=== PATIENT | male | born 1995 | race Caucasian/White ===

== ENCOUNTER 2017-07-16 00:58 | Inpatient (IN) | payer OTHER, BC ==
[~2017-07-16] VITALS: Ht 182.9 cm; Wt 78.4 kg
[2017-07-16] VITALS (18 sets, daily range): BP systolic 69–189; BP diastolic 39–79; PULSE 95–133; RESP 13–16; TEMP 97.5–99.7; O2SAT 78–100
[2017-07-16 01:21] LABS: AUTOMATED NEUTROPHIL # 17.4 TH/MM3 (1.8-7.7); BASOPHIL # 0.1 TH/MM3 (0-0.2); BASOPHIL % 0.4 % (0.0-2.0); EOSINOPHIL # 0.1 TH/MM3 (0-0.4); EOSINOPHIL % 0.6 % (0.0-4.0); HEMATOCRIT 37.8 % (39.0-51.0); HEMOGLOBIN 12.1 GM/DL (13.0-17.0); LYMPH % 21.2 % (9.0-44.0); LYMPHOCYTE # 4.9 TH/MM3 (1.0-4.8); MEAN CELL VOLUME 98.3 FL (80.0-100.0); MEAN CORPUSCULAR HEMOGLOBIN 31.4 PG (27.0-34.0); MEAN CORPUSCULAR HGB CONC 31.9 % (32.0-36.0); MEAN PLATELET VOLUME 9.9 FL (7.0-11.0); MONO % 2.5 % (0.0-8.0); MONOCYTE # 0.6 TH/MM3 (0-0.9); NEUT % 75.3 % (16.0-70.0); PLATELET COUNT 343 TH/MM3 (150-450); RED BLOOD COUNT 3.85 MIL/MM3 (4.50-5.90); RED CELL DISTRIBUTION WIDTH 14.5 % (11.6-17.2); WHITE BLOOD COUNT 23.1 TH/MM3 (4.0-11.0)
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
[2017-07-16 01:33] LABS: INTERNATIONAL NORMALIZED RATIO 1.2 RATIO; PROTHROMBIN TIME - PATIENT 12.4 SEC (9.8-11.6)
[2017-07-16] MEDS ORDERED: IODIXANOL 320 MG/ML 10 ML VIAL (for Rad CT) IVCONTRAST ONE (01:33)
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
[2017-07-16] MEDS ORDERED: VASOPRESSIN 20 UNITS/ML VIAL ONE ×2 (01:54→13:08)
[2017-07-16 02:33] LABS: AUTOMATED NEUTROPHIL # 7.5 TH/MM3 (1.8-7.7); BASOPHIL # 0.1 TH/MM3 (0-0.2); BASOPHIL % 0.7 % (0.0-2.0); EOSINOPHIL # 0.1 TH/MM3 (0-0.4); EOSINOPHIL % 0.9 % (0.0-4.0); HEMATOCRIT 29.1 % (39.0-51.0); HEMOGLOBIN 9.6 GM/DL (13.0-17.0); LYMPH % 17.8 % (9.0-44.0); LYMPHOCYTE # 1.7 TH/MM3 (1.0-4.8); MEAN CELL VOLUME 88.6 FL (80.0-100.0); MEAN CORPUSCULAR HEMOGLOBIN 29.3 PG (27.0-34.0); MEAN CORPUSCULAR HGB CONC 33.1 % (32.0-36.0); MEAN PLATELET VOLUME 8.8 FL (7.0-11.0); MONO % 0.8 % (0.0-8.0); MONOCYTE # 0.1 TH/MM3 (0-0.9); NEUT % 79.8 % (16.0-70.0); PLATELET COUNT 135 TH/MM3 (150-450); RED BLOOD COUNT 3.28 MIL/MM3 (4.50-5.90); WHITE BLOOD COUNT 9.4 TH/MM3 (4.0-11.0)
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
[2017-07-16 02:48] LABS: INTERNATIONAL NORMALIZED RATIO 1.6 RATIO; PROTHROMBIN TIME - PATIENT 15.7 SEC (9.8-11.6)
[2017-07-16 02:52] LABS: BICARBONATE 18.7 MEQ/L (21.0-32.0); CALCIUM 7.5 MG/DL (8.5-10.1); CREATININE 1.42 MG/DL (0.60-1.30)
[2017-07-16 03:20] LABS: HEMATOCRIT 29.4 % (39.0-51.0); MEAN CELL VOLUME 89.7 FL (80.0-100.0); MEAN CORPUSCULAR HEMOGLOBIN 30.5 PG (27.0-34.0); MEAN PLATELET VOLUME 8.3 FL (7.0-11.0); PLATELET COUNT 105 TH/MM3 (150-450); RED BLOOD COUNT 3.28 MIL/MM3 (4.50-5.90); RED CELL DISTRIBUTION WIDTH 15.8 % (11.6-17.2); WHITE BLOOD COUNT 10.1 TH/MM3 (4.0-11.0)
[2017-07-16] MEDS ORDERED: ENALAPRILAT 1.25 MG/ML VIAL IV PUSH PRN (03:30)
[2017-07-16] MEDS ORDERED: CHLORHEXIDINE GLUCONATE 2 % 1 PACK (2 CLOTHS) TOP PRN (03:30)
[2017-07-16] MEDS ORDERED: ONDANSETRON HCL 4 MG/2 ML VIAL IV PUSH PRN (03:30)
[2017-07-16] MEDS ORDERED: NURSING INFORMATION XX SCH (03:30)
[2017-07-16 03:34] LABS: INTERNATIONAL NORMALIZED RATIO 1.5 RATIO; PROTHROMBIN TIME - PATIENT 14.7 SEC (9.8-11.6)
[2017-07-16 03:46] LABS: BICARBONATE 20.8 MEQ/L (21.0-32.0); CALCIUM 8.6 MG/DL (8.5-10.1); CREATININE 1.25 MG/DL (0.60-1.30); MAGNESIUM 1.8 MG/DL (1.5-2.5); PHOSPHORUS 7.4 MG/DL (2.5-4.9)
[2017-07-16] MEDS ORDERED: PROPOFOL 500 MG/50 ML INJ 50 ML ONE (03:52)
[2017-07-16] MEDS: CHLORHEXIDINE GLUCONATE 2 % 1 PACK (2 CLOTHS) TOP SCH (04:00)
[2017-07-16] MEDS ORDERED: MIDAZOLAM HCL 2 MG/2 ML VIAL ONE (04:03)
[2017-07-16] MEDS: SODIUM CHLOR 0.9% 1000 ML INJ 1,000 ML IV SCH ×2 (04:06→10:03)
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
[2017-07-16] MEDS ORDERED: LIDOCAINE HCL 2% 100 MG/5 ML SYRINGE IV PUSH ONE (04:39)
[2017-07-16] MEDS ORDERED: SUCCINYLCHOLINE CHLORIDE 100 MG/5 ML SYRINGE IV PUSH ONE (04:41)
[2017-07-16] MEDS: PROPOFOL 1000 MG/100 ML IV PRN ×2 (04:41→07:45)
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
--- NOTE | 2017-07-16 05:01 | MP ---
cc: Foreign Snider MD DATE OF OPERATION: 07/16/2017 PREOPERATIVE DIAGNOSIS: Splenic injury, liver injury. POSTOPERATIVE DIAGNOSIS: Splenic injury, liver injury. PROCEDURE PERFORMED: Exploratory laparotomy, splenectomy and control of liver bleed. SURGEON: Foreign Snider MD ANESTHESIA: General endotracheal anesthesia. ESTIMATED BLOOD LOSS: 2 liters. Multiple blood and blood products were given and could be obtained from the anesthesia record. FINDINGS: Splenic laceration with active bleed, liver laceration with active bleed. SPECIMENS: Spleen. COMPLICATIONS: None. OPERATIVE SUMMARY: The patient was brought to the operating room, placed on the operative table in supine position. Bilateral sequential inflation device connected, general anesthesia instituted. Lines were placed by Anesthesia. The abdomen was prepped and draped sterilely. A midline incision was made. The abdominal cavity was entered. Upon entering the abdominal cavity, there was a large amount of hemoperitoneum encountered. The upper abdomen was packed off. The packing in the left upper quadrant was removed. The spleen was brought up into the wound. The short gastric vessels were taken down using the Harmonic scalpel. The splenic attachments were down taken superiorly and posteriorly using a Bovie. The inferior splenic vessels were taken using the Harmonic scalpel. The splenic artery and vein were isolated between right-angle clamps. They were divided and ligated with 0 silk sutures. The spleen was removed from the abdominal cavity. Attention then focused on the liver. The liver was split at the falciform, with active bleeding. This was controlled with 0 chromic suture. The small bowel was then inspected from the ligament of Treitz to the ileocecal valve. No evidence of bowel injury. The colon was inspected. No evidence of colonic injury. The stomach was inspected. The short gastrics and splenic vessel stumps were inspected. No evidence of bleeding. The abdominal cavity was then irrigated with saline. As the patient received a large amount of blood transfusions and blood product transfusion, it was decided to leave the patient's abdomen open. A VAC dressing was then placed. The large blue sponge was placed into the abdominal cavity, and then the occlusive dressing was then placed. The abdominal wall was cleaned prior to this. The patient was left intubated and taken to [facility]. MD RADHIKA Mac/TAN , 04:05 AM , 05:00 AM
[2017-07-16 05:08] LABS: HEMATOCRIT 31.6 % (39.0-51.0); HEMOGLOBIN 10.9 GM/DL (13.0-17.0); MEAN CELL VOLUME 88.2 FL (80.0-100.0); MEAN CORPUSCULAR HEMOGLOBIN 30.5 PG (27.0-34.0); MEAN CORPUSCULAR HGB CONC 34.5 % (32.0-36.0); MEAN PLATELET VOLUME 8.6 FL (7.0-11.0); PLATELET COUNT 105 TH/MM3 (150-450); RED BLOOD COUNT 3.58 MIL/MM3 (4.50-5.90); RED CELL DISTRIBUTION WIDTH 15.8 % (11.6-17.2); WHITE BLOOD COUNT 8.3 TH/MM3 (4.0-11.0)
[2017-07-16 05:30] LABS: INTERNATIONAL NORMALIZED RATIO 1.2 RATIO
[2017-07-16 05:45] LABS: ALKALINE PHOSPHATASE 51 U/L (45-117); TOTAL BILIRUBIN ADULT 0.5 MG/DL (0.2-1.0); TOTAL PROTEIN 5.2 GM/DL (6.4-8.2)
[2017-07-16] MEDS ORDERED: MAGNESIUM OXIDE 400 MG TAB PO PRN (05:45)
[2017-07-16] MEDS ORDERED: POTASSIUM PHOSPHATE INJ 30 MMOL in SODIUM CHLOR 0.9% 250 ML INJ 250 ML IV PRN (05:45)
[2017-07-16] MEDS ORDERED: POTASSIUM PHOSPHATE MONOBASIC 500 MG TAB PO/TUBE PRN (05:45)
[2017-07-16] MEDS ORDERED: MAGNESIUM SULFATE INJ 4 GM in SODIUM CHLORIDE 0.9% INJ 92 ML IV PRN (05:45)
[2017-07-16] MEDS ORDERED: POTASSIUM PHOSPHATE MONOBASIC 500 MG TAB PO PRN (05:45)
[2017-07-16] MEDS ORDERED: POTASSIUM CHLORIDE 25 MEQ EFFERVESCENT TAB PO PRN (05:45)
[2017-07-16] MEDS ORDERED: POTASSIUM CHLOR 20 MEQ PREMIX 100 ML IV PRN ×2 (05:45)
[2017-07-16] MEDS ORDERED: POTASSIUM CHLOR 40 MEQ PREMIX 100 ML IV PRN ×2 (05:45)
[2017-07-16] MEDS ORDERED: MAGNESIUM SULFATE INJ 2 GM in SODIUM CHLORIDE 0.9% INJ 96 ML IV PRN (05:45)
[2017-07-16] MEDS ORDERED: SODIUM PHOSPHATE INJ 30 MMOL in SODIUM CHLOR 0.9% 250 ML INJ 240 ML IV PRN (05:45)
[2017-07-16 05:46] LABS: ALBUMIN 2.5 GM/DL (3.4-5.0); ALT (GPT) 944 U/L (12-78); AST (GOT) 778 U/L (15-37); BICARBONATE 23.9 MEQ/L (21.0-32.0); BLOOD UREA NITROGEN 17 MG/DL (7-18); CALCIUM 8.8 MG/DL (8.5-10.1); CHLORIDE 109 MEQ/L (98-107); GLOMERULAR FILTRATION RATE 48 ML/MIN (>89); GLUCOSE,RANDOM 72 MG/DL (74-106); SODIUM (NA) 148 MEQ/L (136-145)
[2017-07-16] MEDS: fentaNYL 2,500 MCG/NS 250 ML IV PRN ×2 (05:46→19:00)
[2017-07-16] MEDS: CISATRACURIUM 100 MG/NS 250 ML IV PRN ×2 (05:46)
[2017-07-16] MEDS: SODIUM CHLORIDE 0.9% FLUSH 10 ML FLUSH IV FLUSH PRN (05:46)
[2017-07-16] MEDS: PANTOPRAZOLE SODIUM 40 MG VIAL IVP SCH (05:47)
[2017-07-16] MEDS ORDERED: LACTATED RINGER'S 1000 ML INJ 1,000 ML IV PRN (06:00)
[2017-07-16] MEDS ORDERED: NOREPINEPHRINE-DEXTROSE DRIP 250 ML IV ONE ×2 (06:16→12:54)
[2017-07-16] MEDS: NOREPINEPHRINE 4 MG/D5W 250 ML IV PRN ×2 (06:41→22:25)
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
[2017-07-16] MEDS ORDERED: ALBUMIN 5% INJ 500 ML IV ONE ×3 (07:00→13:30)
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
[2017-07-16] MEDS: CHLORHEXIDINE 0.12% (ORAL KIT) 15 ML CUP MT SCH (07:46)
[2017-07-16 08:43] LABS: MAGNESIUM 1.9 MG/DL (1.5-2.5); PHOSPHORUS 5.8 MG/DL (2.5-4.9)
[2017-07-16] MEDS ORDERED: SODIUM BICARBONATE 8.4% INJ 50 MEQ/50 ML SYR ONE (08:54)
[2017-07-16] MEDS: EPOPROSTENOL NEB SOLUTION 50 NG/KG/MIN 100 ML NEB SCH ×4 (09:51→19:00)
[2017-07-16] MEDS: RESP: ALBUTEROL 2.5 MG/IPRATROPIUM 0.5 MG NEB (SCH) NEB ×4 (10:00→22:36)
--- NOTE | 2017-07-16 10:21 | RADRPT ---
EXAM DATE/TIME: 07/16/2017 09:41 [facility] COMPARISON: CHEST SINGLE AP, July 16, 2017, 4:05. INDICATIONS : Shortness of breath. MEDICAL HISTORY : Unobtainable. SURGICAL HISTORY : Unobtainable. ENCOUNTER: Subsequent ACUITY: 1 day PAIN SCORE: Non-responsive. LOCATION: Bilateral chest FINDINGS: Endotracheal tube tip is present 8 cm above the elan. Nasogastric tube descends in the stomach. Lef t subclavian sheath is present. There is persistent diffuse alveolar consolidation in the left lung a nd increasing consolidative density in the right perihilar region right lung base. Cardiac silhouette is largely obscured. CONCLUSION: Worsening aeration Marvin Bean MD on July 16, 2017 at 10:18 Board Certified Radiologist. This report was verified electronically.
[2017-07-16 10:23] LABS: AUTOMATED NEUTROPHIL # 1.7 TH/MM3 (1.8-7.7); BASOPHIL % 0.6 % (0.0-2.0); EOSINOPHIL % 0.7 % (0.0-4.0); HEMATOCRIT 32.6 % (39.0-51.0); HEMOGLOBIN 11.1 GM/DL (13.0-17.0); LYMPH % 33.4 % (9.0-44.0); LYMPHOCYTE # 0.9 TH/MM3 (1.0-4.8); MEAN CELL VOLUME 88.9 FL (80.0-100.0); MEAN CORPUSCULAR HEMOGLOBIN 30.2 PG (27.0-34.0); MEAN PLATELET VOLUME 7.5 FL (7.0-11.0); MONO % 2.3 % (0.0-8.0); MONOCYTE # 0.1 TH/MM3 (0-0.9); PLATELET COUNT 179 TH/MM3 (150-450); RED BLOOD COUNT 3.66 MIL/MM3 (4.50-5.90); RED CELL DISTRIBUTION WIDTH 15.8 % (11.6-17.2); WHITE BLOOD COUNT 2.7 TH/MM3 (4.0-11.0)
[2017-07-16 11:01] LABS: BICARBONATE 30.8 MEQ/L (21.0-32.0); CALCIUM 7.9 MG/DL (8.5-10.1); CREATININE 1.45 MG/DL (0.60-1.30)
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
[2017-07-16] MEDS ORDERED: PHENYLEPHRINE HCL 10 MG/ML VIAL ONE ×3 (11:55→14:18)
[2017-07-16] MEDS ORDERED: LACTATED RINGER'S 1000 ML INJ 3,000 ML IV ONE (12:00)
[2017-07-16] MEDS ORDERED: PHENYLEPHRINE HCL 10 MG/ML VIAL IV ONE (12:00)
[2017-07-16] MEDS ORDERED: ROCURONIUM INJ 50 MG/5 ML SYRINGE IV PUSH ONE (12:00)
[2017-07-16] MEDS ORDERED: CALCIUM GLUCONATE INJ 2 GM in SODIUM CHLORIDE 0.9% INJ 100 ML IV ONE ×2 (12:00→16:15)
[2017-07-16] MEDS ORDERED: SODIUM CHLORID 0.9% 500 ML INJ 500 ML IV ONE (12:00)
[2017-07-16] MEDS ORDERED: NORMOSOL R INJ 4,000 ML IV ONE (12:00)
[2017-07-16] MEDS ORDERED: KETOROLAC TROMETHAMINE 30 MG/ML (IVP) VIAL IV PUSH ONE (12:00)
[2017-07-16] MEDS ORDERED: PHENYLEPH/NS 1000 MCG/10 ML SYR IV ONE (12:00)
[2017-07-16] MEDS ORDERED: SODIUM CHLOR 0.9% 250 ML INJ 250 ML IV ONE (12:00)
[2017-07-16] MEDS ORDERED: VECURONIUM BROMIDE 20 MG VIAL IV ONE (12:00)
[2017-07-16] MEDS ORDERED: ePHEDrine/NS 25 MG/5 ML SYRINGE IV ONE (12:00)
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
[2017-07-16] MEDS ORDERED: PHENYLEPHRINE 40 MG in D5W 500 ML IV PRN (15:00)
[2017-07-16 15:06] LABS: AUTOMATED NEUTROPHIL # 2.6 TH/MM3 (1.8-7.7); BASOPHIL % 0.3 % (0.0-2.0); EOSINOPHIL % 1.3 % (0.0-4.0); HEMATOCRIT 27.6 % (39.0-51.0); HEMOGLOBIN 9.7 GM/DL (13.0-17.0); LYMPH % 18.9 % (9.0-44.0); LYMPHOCYTE # 0.6 TH/MM3 (1.0-4.8); MEAN CELL VOLUME 87.7 FL (80.0-100.0); MEAN CORPUSCULAR HEMOGLOBIN 30.7 PG (27.0-34.0); MONO % 1.7 % (0.0-8.0); MONOCYTE # 0.1 TH/MM3 (0-0.9); NEUT % 77.8 % (16.0-70.0); PLATELET COUNT 141 TH/MM3 (150-450); RED BLOOD COUNT 3.15 MIL/MM3 (4.50-5.90); RED CELL DISTRIBUTION WIDTH 16.1 % (11.6-17.2); WHITE BLOOD COUNT 3.4 TH/MM3 (4.0-11.0)
[2017-07-16 15:28] LABS: ALKALINE PHOSPHATASE 42 U/L (45-117); ALT (GPT) 862 U/L (12-78); AST (GOT) 949 U/L (15-37); BICARBONATE 27.9 MEQ/L (21.0-32.0); BLOOD UREA NITROGEN 21 MG/DL (7-18); CALCIUM 7.5 MG/DL (8.5-10.1); CHLORIDE 107 MEQ/L (98-107); CREATININE 2.23 MG/DL (0.60-1.30); GLOMERULAR FILTRATION RATE 37 ML/MIN (>89); GLUCOSE,RANDOM 146 MG/DL (74-106); SODIUM (NA) 143 MEQ/L (136-145); TOTAL BILIRUBIN ADULT 0.7 MG/DL (0.2-1.0); TOTAL PROTEIN 5.3 GM/DL (6.4-8.2)
[2017-07-16] MEDS: LACTATED RINGER'S 1000 ML INJ 1,000 ML IV SCH (15:30)
[2017-07-16 15:50] LABS: BANDS 17 % (0-6); BASOPHILS 2 % (0-2); LYMPHOCYTES 31 % (9-44); METAMYELOCYTES 6 % (0-1); MONOCYTES 2 % (0-8); MYELOCYTES 5 % (0-0); NEUTROPHIL # MANUAL DIFF 2.1 TH/MM3 (1.8-7.7); POLYS (SEG NEUTROPHILS) 35 % (16-70)
[2017-07-16] MEDS ORDERED: MIDAZOLAM HCL 5 MG/ML VIAL (1 ML) ONE (19:15)
[2017-07-16] MEDS: MIDAZOLAM 100 MG/NS 100 ML DRIP Premix IV PRN (20:05)
[2017-07-16] MEDS ORDERED: TERBUTALINE INJ 1 MG/ML AMP SQ PRN (20:45)
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
--- NOTE | 2017-07-16 21:53 | RADRPT ---
EXAM DATE/TIME: 07/16/2017 20:36 [facility] COMPARISON: CHEST SINGLE AP, July 16, 2017, 9:41. INDICATIONS : Shortness of breath. MEDICAL HISTORY : Unresponsive. SURGICAL HISTORY : Unresponsive. ENCOUNTER: Initial ACUITY: 1 day PAIN SCORE: Non-responsive. LOCATION: Bilateral chest FINDINGS: ET tube tip is 8 cm from the elan. The NG tube tip is directed into the stomach. There is a left dooley bclavian line with its tip at the left brachiocephalic vein. There is increased density seen througho ut the left chest. There is diffuse consolidation seen on the right side. There is a mild right effus ion. CONCLUSION: 1. Suspected bilateral effusions being much worse on the left. 2. Diffuse pulmonary consolidations likely related to edema. Marvin Steele MD on July 16, 2017 at 21:47 Board Certified Radiologist. This report was verified electronically.
--- NOTE | 2017-07-16 22:11 | PD.PROCEDR ---
Procedure Note Procedure Procedure: Arterial Line Placement Right femoral arterial line Diagnosis: Severe ARDS Indications: Need for beat to beat hemodynamic monitoring. Patient has a right radial arterial line which is not correlating with the noninvasive blood pressure and the patient remains on 3 vasopressors. Need for accurate central arterial pressure monitoring Consent: Obtained from the family Description of the Procedure: The right groin was prepped and draped sterilely. Ultrasound guidance was used to identify the right femoral artery. The vascular anatomy of the right groin was normal. The artery was located and a needle was advanced into the artery under direct real-time visualization. A guidewire was advanced easily. Guidewire was confirmed in the lumen of the artery under ultrasound guidance. A 16 gauge, 20 cm catheter was advanced into the artery using a modified Seldinger technique. The catheter was sutured to the skin and a sterile dressing was applied. The catheter was connected to a pressure transducer and an arterial waveform was noted. There were no immediate complications noted. There was minimal EBL. I personally performed the procedure. Chadwick Pulido MD Jul 16, 2017 22:11
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
--- NOTE | 2017-07-16 22:55 | RADRPT ---
EXAM DATE/TIME: 07/16/2017 21:36 [facility] COMPARISON: CHEST SINGLE AP, July 16, 2017, 20:36. INDICATIONS : Evaluate chest tube placement. MEDICAL HISTORY : Unresponsive. SURGICAL HISTORY : Unresponsive. ENCOUNTER: Subsequent ACUITY: 1 day PAIN SCORE: Non-responsive. LOCATION: Bilateral chest FINDINGS: The ET tube and NG tube are well placed. There is a left subclavian line place with the tip overlying the left innominate vein. There is a new left chest tube. There is slight under aeration of the left upper lung. There is diffuse consolidation. There is increased density seen throughout the left ches t likely related to a combination of consolidation, atelectasis, and/or effusion. There is a mild rig ht pleural effusion. CONCLUSION: 1. New left chest tube. There is better aeration in the left upper lung. 2. Diffuse consolidation likely related to edema. Marvin Steele MD on July 16, 2017 at 22:51 Board Certified Radiologist. This report was verified electronically.
[2017-07-16] MEDS: PHENYLEPHRINE 40 MG in D5W 500 ML IV PRN (22:57)
[2017-07-16 23:21] LABS: BICARBONATE 25.9 MEQ/L (21.0-32.0); CALCIUM 6.8 MG/DL (8.5-10.1); CREATININE 3.05 MG/DL (0.60-1.30)
[2017-07-16 23:38] LABS: CALCIUM-PROTEIN CORRECTED 7.8 MG/DL (8.5-10.1); TOTAL PROTEIN 5.1 GM/DL (6.4-8.2)
[2017-07-17] VITALS (16 sets, daily range): BP systolic 100–128; BP diastolic 56–92; PULSE 123–132; RESP 16–28; TEMP 98.9–99.6; O2SAT 92–100
[2017-07-17] MEDS: PHENYLEPHRINE 40 MG in D5W 500 ML IV PRN ×3 (01:15→06:06)
[2017-07-17] MEDS: VASOPRESSIN 40 U/D5W 100 ML Titrate, Post Cardiac Surgery IV PRN ×4 (02:23→18:30)
[2017-07-17] MEDS: NOREPINEPHRINE 4 MG/D5W 250 ML IV PRN ×7 (02:24→20:11)
[2017-07-17] MEDS: LACTATED RINGER'S 1000 ML INJ 1,000 ML IV SCH ×2 (02:40→04:50)
[2017-07-17] MEDS: EPOPROSTENOL NEB SOLUTION 50 NG/KG/MIN 100 ML NEB SCH ×6 (03:00→22:54)
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
[2017-07-17] MEDS: RESP: ALBUTEROL 2.5 MG/IPRATROPIUM 0.5 MG NEB (SCH) NEB ×4 (04:00→22:00)
[2017-07-17] MEDS: CHLORHEXIDINE GLUCONATE 2 % 1 PACK (2 CLOTHS) TOP SCH (04:00)
[2017-07-17 04:45] LABS: AUTOMATED NEUTROPHIL # 14.5 TH/MM3 (1.8-7.7); BASOPHIL % 0.2 % (0.0-2.0); EOSINOPHIL # 0.1 TH/MM3 (0-0.4); EOSINOPHIL % 0.4 % (0.0-4.0); HEMATOCRIT 28.5 % (39.0-51.0); HEMOGLOBIN 9.6 GM/DL (13.0-17.0); LYMPHOCYTE # 1.1 TH/MM3 (1.0-4.8); MEAN CELL VOLUME 89.2 FL (80.0-100.0); MEAN CORPUSCULAR HEMOGLOBIN 30.2 PG (27.0-34.0); MEAN CORPUSCULAR HGB CONC 33.8 % (32.0-36.0); MEAN PLATELET VOLUME 9.3 FL (7.0-11.0); MONO % 2.6 % (0.0-8.0); MONOCYTE # 0.4 TH/MM3 (0-0.9); NEUT % 89.8 % (16.0-70.0); PLATELET COUNT 75 TH/MM3 (150-450); RED BLOOD COUNT 3.19 MIL/MM3 (4.50-5.90); RED CELL DISTRIBUTION WIDTH 16.5 % (11.6-17.2); WHITE BLOOD COUNT 16.1 TH/MM3 (4.0-11.0)
[2017-07-17 05:16] LABS: INTERNATIONAL NORMALIZED RATIO 1.5 RATIO
[2017-07-17 05:17] LABS: BICARBONATE 24.5 MEQ/L (21.0-32.0); CALCIUM 6.4 MG/DL (8.5-10.1); CREATININE 3.51 MG/DL (0.60-1.30); MAGNESIUM 1.2 MG/DL (1.5-2.5); PHOSPHORUS 5.4 MG/DL (2.5-4.9)
[2017-07-17 05:35] LABS: TOTAL PROTEIN 5.2 GM/DL (6.4-8.2)
[2017-07-17 05:39] LABS: CALCIUM-PROTEIN CORRECTED 7.3 MG/DL (8.5-10.1)
[2017-07-17] MEDS: PANTOPRAZOLE SODIUM 40 MG VIAL IVP SCH (06:06)
[2017-07-17] MEDS: CISATRACURIUM 100 MG/NS 250 ML IV PRN ×2 (06:12)
[2017-07-17] MEDS: CHLORHEXIDINE 0.12% (ORAL KIT) 15 ML CUP MT SCH ×2 (08:00→20:00)
[2017-07-17] MEDS: SODIUM CHLOR 0.9% 1000 ML INJ 1,000 ML IV SCH (09:13)
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
[2017-07-17] MEDS: MIDAZOLAM 100 MG/NS 100 ML DRIP Premix IV PRN (14:12)
[2017-07-17 14:29] LABS: AMORPHOUS SEDIMENT, URINE MANY; BACTERIA, URINE OCC /hpf; BLOOD, URINE MOD (NEG); GLUCOSE,URINE TRACE mg/dL (NEG); KETONE, URINE TRACE mg/dL (NEG); MUCUS URINE FEW /lpf (OCC); NITRITE,URINE NEG (NEG); PH, URINE 5.5 (5.0-8.5); SQUAMOUS EPITHELIAL CELL URINE 1 /hpf (0-5); URINE LEUKOCYTE ESTERASE SMALL (NEG)
[2017-07-17 14:31] LABS: BILIRUBIN, URINE NEG (NEG); URINE COLOR LIGHT-RED (YELLW/STRAW)
[2017-07-17 14:48] LABS: CREATININE, RANDOM URINE 217.7 MG/DL
[2017-07-17] MEDS ORDERED: cefTRIAXone INJ 1,000 MG in SODIUM CHLORIDE 0.9% INJ 100 ML IV ONE (16:45)
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
[2017-07-17] MEDS: fentaNYL 2,500 MCG/NS 250 ML IV PRN (18:41)
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
[2017-07-17 22:23] LABS: ALBUMIN 2.7 GM/DL (3.4-5.0); BICARBONATE 23.9 MEQ/L (21.0-32.0); CALCIUM 6.1 MG/DL (8.5-10.1); CREATININE 5.09 MG/DL (0.60-1.30)
[2017-07-17 22:40] LABS: TOTAL PROTEIN 5.5 GM/DL (6.4-8.2)
[2017-07-17 22:41] LABS: TOTAL BILIRUBIN ADULT 1.1 MG/DL (0.2-1.0)
[2017-07-17 22:42] LABS: CALCIUM-PROTEIN CORRECTED 6.8 MG/DL (8.5-10.1)
[2017-07-18] VITALS (16 sets, daily range): BP systolic 95–115; BP diastolic 50–58; PULSE 116–126; RESP 13–22; TEMP 98.7–100.1; O2SAT 99–100
[2017-07-18] MEDS: CHLORHEXIDINE GLUCONATE 2 % 1 PACK (2 CLOTHS) TOP SCH ×2 (04:00→20:49)
[2017-07-18] MEDS: RESP: ALBUTEROL 2.5 MG/IPRATROPIUM 0.5 MG NEB (SCH) NEB ×4 (04:00→21:12)
--- NOTE | 2017-07-18 04:24 | RADRPT ---
EXAM DATE/TIME: 07/18/2017 03:28 [facility] COMPARISON: CHEST SINGLE AP, July 17, 2017, 3:20. INDICATIONS : Acute respiratory distress syndrome. MEDICAL HISTORY : None. SURGICAL HISTORY : None. ENCOUNTER: Subsequent ACUITY: 2 days PAIN SCORE: Non-responsive. LOCATION: Bilateral chest FINDINGS: 2 portable frontal views of the chest or left thoracostomy tube and nasogastric tube. Endotracheal tu be tip is 11 cm proximal to elan. Bilateral pulmonary infiltrates most pronounced at the bases have shown some improvement. Small effusion suspected. Heart is normal in size. Left subclavian central l ine. No pneumothorax. CONCLUSION: Some improvement in the bilateral pulmonary consolidations. Bob Gerardo Jr., MD on July 18, 2017 at 4:22 Board Certified Radiologist. This report was verified electronically.
[2017-07-18 04:57] LABS: AUTOMATED NEUTROPHIL # 31.9 TH/MM3 (1.8-7.7); EOSINOPHIL # 0.2 TH/MM3 (0-0.4); EOSINOPHIL % 0.5 % (0.0-4.0); HEMATOCRIT 26.1 % (39.0-51.0); HEMOGLOBIN 8.8 GM/DL (13.0-17.0); LYMPH % 1.5 % (9.0-44.0); LYMPHOCYTE # 0.5 TH/MM3 (1.0-4.8); MEAN CELL VOLUME 89.7 FL (80.0-100.0); MEAN CORPUSCULAR HEMOGLOBIN 30.1 PG (27.0-34.0); MEAN CORPUSCULAR HGB CONC 33.6 % (32.0-36.0); MEAN PLATELET VOLUME 10.6 FL (7.0-11.0); MONO % 1.8 % (0.0-8.0); MONOCYTE # 0.6 TH/MM3 (0-0.9); NEUT % 96.2 % (16.0-70.0); PLATELET COUNT 81 TH/MM3 (150-450); RED BLOOD COUNT 2.91 MIL/MM3 (4.50-5.90); RED CELL DISTRIBUTION WIDTH 15.8 % (11.6-17.2); WHITE BLOOD COUNT 33.2 TH/MM3 (4.0-11.0)
[2017-07-18] MEDS: PANTOPRAZOLE SODIUM 40 MG VIAL IVP SCH (05:27)
[2017-07-18 05:46] LABS: ALBUMIN 2.6 GM/DL (3.4-5.0); CREATININE 5.7 MG/DL (0.60-1.30)
[2017-07-18 05:55] LABS: BICARBONATE 22.9 MEQ/L (21.0-32.0); TOTAL BILIRUBIN ADULT 1.1 MG/DL (0.2-1.0); TOTAL PROTEIN 5.4 GM/DL (6.4-8.2)
[2017-07-18 06:00] LABS: CALCIUM-PROTEIN CORRECTED 6.8 MG/DL (8.5-10.1)
[2017-07-18] MEDS ORDERED: SODIUM BICARBONATE 8.4% INJ 50 MEQ/50 ML SYR IV PUSH ONE (06:30)
[2017-07-18] MEDS ORDERED: INSULIN HUMAN REGULAR 1,000 UNITS/10 ML VIAL IV PUSH ONE (06:30)
[2017-07-18] MEDS ORDERED: SODIUM POLYSTYRENE SULFONATE SUSP 15 GM/60 ML CUP PO ONE (06:30)
[2017-07-18] MEDS ORDERED: CALCIUM CHLORIDE INJ 2 GM in SODIUM CHLORIDE 0.9% INJ 100 ML IV ONE (06:30)
[2017-07-18] MEDS ORDERED: DEXTROSE 50% IN WATER 50 ML SYRINGE IV PUSH ONE (06:30)
[2017-07-18 06:35] LABS: BANDS 33 % (0-6); LYMPHOCYTES 1 % (9-44); METAMYELOCYTES 1 % (0-1); MONOCYTES 2 % (0-8); NEUTROPHIL # MANUAL DIFF 32.2 TH/MM3 (1.8-7.7); POLYS (SEG NEUTROPHILS) 63 % (16-70)
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
--- NOTE | 2017-07-18 06:58 | RADRPT ---
EXAM DATE/TIME: 07/18/2017 06:37 [facility] COMPARISON: CHEST SINGLE AP, July 18, 2017, 3:28. INDICATIONS : ET tube placement. MEDICAL HISTORY : None. SURGICAL HISTORY : None. ENCOUNTER: Initial ACUITY: 1 day PAIN SCORE: Non-responsive. LOCATION: Bilateral chest FINDINGS: A single portable frontal view of the chest shows a left thoracostomy tube, left subclavian central l ine, endotracheal tube, and nasogastric tube. No pneumothorax. Diffuse bilateral pulmonary infiltrate s are unchanged. Question of small effusions. Heart is normal in size. CONCLUSION: Unchanged diffuse bilateral pulmonary infiltrates and possible small effusions. Bob Gerardo Jr., MD on July 18, 2017 at 6:56 Board Certified Radiologist. This report was verified electronically.
[2017-07-18] MEDS: CHLORHEXIDINE 0.12% (ORAL KIT) 15 ML CUP MT SCH ×2 (08:00→20:49)
[2017-07-18] MEDS: SODIUM CHLOR 0.9% 1000 ML INJ 1,000 ML IV SCH (09:09)
[2017-07-18] MEDS: MIDAZOLAM 100 MG/NS 100 ML DRIP Premix IV PRN ×2 (09:10→23:49)
[2017-07-18] MEDS: EPOPROSTENOL NEB SOLUTION 50 NG/KG/MIN 100 ML NEB SCH ×6 (11:00→21:16)
[2017-07-18] MEDS ORDERED: SODIUM CHLOR 0.9% 250 ML INJ 250 ML IV ONE (11:15)
[2017-07-18] MEDS: RESP: ALBUTEROL 2.5 MG/IPRATROPIUM 0.5 MG NEB (PRN) NEB (11:58)
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
[2017-07-18] MEDS: VASOPRESSIN 40 U/D5W 100 ML Titrate, Post Cardiac Surgery IV PRN ×2 (12:30)
[2017-07-18] MEDS ORDERED: HEPARIN SODIUM - IV 10,000 UNITS/10 ML VIAL ONE (12:40)
[2017-07-18] MEDS ORDERED: SODIUM CHLOR 0.9% 1000 ML INJ 1,000 ML OTHER PRN (12:42)
[2017-07-18] MEDS ORDERED: SODIUM CHLOR 0.9% 1000 ML INJ 1,000 ML IV PRN (12:42)
[2017-07-18] MEDS ORDERED: NITROGLYCERIN 0.4 MG SL 25 TABS/BTL SL PRN (12:45)
[2017-07-18] MEDS ORDERED: HEPARIN SODIUM - IV 10,000 UNITS/10 ML VIAL IV FLUSH PRN (12:45)
[2017-07-18] MEDS ORDERED: cloNIDine HCL 0.1 MG TAB PO PRN (12:45)
[2017-07-18] MEDS ORDERED: MANNITOL 12.5 GM/50 ML VIAL IV PRN (12:45)
[2017-07-18] MEDS ORDERED: ONDANSETRON HCL 4 MG/2 ML VIAL IV PUSH PRN (12:45)
[2017-07-18] MEDS ORDERED: GELATIN 12 MM/7 MM FOAM TOP PRN (12:45)
[2017-07-18] MEDS ORDERED: SODIUM CHLORIDE 0.9% FLUSH 10 ML FLUSH IV FLUSH PRN (12:45)
--- NOTE | 2017-07-18 13:25 | PD.PROCEDR ---
Central Line Procedure REASON FOR PROCEDURE HD PROCEDURE PERFORMED HD access left femoral vein [ ] CONSENT Informed consent for procedure was obtained [ ]. The risks and benefits of the procedure were discussed to include but limited to bleeding, clot formation, infection, and even . ANESTHESIA Local injection of 1% Lidocaine DESCRIPTION OF THE PROCEDURE The patient was placed in supine position. The area was exposed and cleansed with ChloraPrep, times two. Large sterile drape was used to cover the patient, with the site exposed, under sterile conditions including cap, face mask, sterile gown, and sterile gloves. On single attempt, the introducer needle was inserted with negative pressure in syringe and venous flash was obtained. The guide wire was then advanced without any restriction and the needle was removed. The dilator was used without any complications. Using Seldinger technique the [DL-HD ] catheter was advanced over the guide wire to a depth of [ 30] centimeters. The guide wire was removed. All ports were aspirated with dark venous blood return and flushed easily with sterile saline. All ports were capped. Antibiotic disc was placed around central line at puncture site. The central line was secured to the skin with two interrupted 2.0 silk sutures. The area was bandaged with sterile see-through central line bandage. RADIOLOGICAL DATA Ultrasound guidance was used to locate COMPLICATIONS: No apparent complications ESTIMATED BLOOD LOSS: Less than 1 cc. Carmen Max MD Jul 18, 2017 13:25
[2017-07-18] MEDS: HEPARIN SODIUM - SQ 10,000 UNITS/ML VIAL SQ SCH ×2 (14:00→21:00)
[2017-07-18] MEDS: SODIUM CHLOR 0.9% 1000 ML INJ 1,000 ML OTHER PRN (14:26)
[2017-07-18] MEDS: HEPARIN SODIUM - IV 10,000 UNITS/10 ML VIAL PRN (14:28)
[2017-07-18] MEDS: EPOETIN ALFA 10,000 UNITS/ML VIAL IV PUSH PRN (14:29)
[2017-07-18] MEDS: GENTAMICIN SULFATE 20 MG/2 ML VIAL OTHER PRN (14:29)
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
[2017-07-18] MEDS: fentaNYL 2,500 MCG/NS 250 ML IV PRN (18:35)
[2017-07-19] VITALS (19 sets, daily range): BP systolic 114–156; BP diastolic 56–72; PULSE 119–127; RESP 13–24; TEMP 99.9–100.5; O2SAT 97–100
[2017-07-19] MEDS: RESP: ALBUTEROL 2.5 MG/IPRATROPIUM 0.5 MG NEB (SCH) NEB ×3 (03:50→20:52)
[2017-07-19] MEDS: HEPARIN SODIUM - SQ 10,000 UNITS/ML VIAL SQ SCH ×3 (05:28→22:06)
--- NOTE | 2017-07-19 05:34 | RADRPT ---
EXAM DATE/TIME: 07/19/2017 04:54 [facility] COMPARISON: CHEST SINGLE AP, July 18, 2017, 6:37. INDICATIONS : Short of breath. MEDICAL HISTORY : None. SURGICAL HISTORY : None. ENCOUNTER: Subsequent ACUITY: 4 - 6 days PAIN SCORE: 0/10 LOCATION: Bilateral chest FINDINGS: A single view of the chest demonstrates left-sided chest tube without pneumothorax. Left central line in left brachiocephalic vein. Endotracheal tube and nasogastric tube unchanged. Improved basilar air space disease since July 18. CONCLUSION: 1. Improving bilateral airspace disease since July 18. Left chest tube without pneumothorax. Omari Moraes MD on July 19, 2017 at 5:31 Board Certified Radiologist. This report was verified electronically.
[2017-07-19] MEDS: PANTOPRAZOLE SODIUM 40 MG VIAL IVP SCH (05:38)
[2017-07-19] MEDS: VASOPRESSIN 40 U/D5W 100 ML Titrate, Post Cardiac Surgery IV PRN ×2 (05:38)
[2017-07-19] MEDS: EPOPROSTENOL NEB SOLUTION 50 NG/KG/MIN 100 ML NEB SCH ×2 (05:38)
[2017-07-19 06:26] LABS: AUTOMATED NEUTROPHIL # 35.8 TH/MM3 (1.8-7.7); BASOPHIL # 0.1 TH/MM3 (0-0.2); BASOPHIL % 0.2 % (0.0-2.0); EOSINOPHIL # 0.1 TH/MM3 (0-0.4); EOSINOPHIL % 0.3 % (0.0-4.0); HEMATOCRIT 26.2 % (39.0-51.0); HEMOGLOBIN 8.7 GM/DL (13.0-17.0); LYMPHOCYTE # 0.4 TH/MM3 (1.0-4.8); MEAN CELL VOLUME 87.5 FL (80.0-100.0); MEAN CORPUSCULAR HEMOGLOBIN 29.1 PG (27.0-34.0); MEAN CORPUSCULAR HGB CONC 33.2 % (32.0-36.0); MEAN PLATELET VOLUME 10.4 FL (7.0-11.0); MONO % 1.7 % (0.0-8.0); MONOCYTE # 0.6 TH/MM3 (0-0.9); NEUT % 96.8 % (16.0-70.0); PLATELET COUNT 111 TH/MM3 (150-450); RED CELL DISTRIBUTION WIDTH 17.7 % (11.6-17.2)
[2017-07-19 07:10] LABS: ALBUMIN 2.4 GM/DL (3.4-5.0); BICARBONATE 23.3 MEQ/L (21.0-32.0); CREATININE 7.03 MG/DL (0.60-1.30); TOTAL BILIRUBIN ADULT 1.3 MG/DL (0.2-1.0); TOTAL PROTEIN 5.9 GM/DL (6.4-8.2)
[2017-07-19 07:20] LABS: BANDS 20 % (0-6); CORRECTED NUCLEATED RBC 1 /100 WBC (0-0); LYMPHOCYTES 1 % (9-44); MONOCYTES 4 % (0-8); NEUTROPHIL # MANUAL DIFF 35.2 TH/MM3 (1.8-7.7); NUCLEATED RED BLOOD CELL 1 (0-0); POLYS (SEG NEUTROPHILS) 75 % (16-70)
[2017-07-19 07:21] LABS: KERATOCYTES 1+ (NORMAL)
[2017-07-19 07:22] LABS: CALCIUM 6.4 MG/DL (8.5-10.1)
[2017-07-19] MEDS: CHLORHEXIDINE 0.12% (ORAL KIT) 15 ML CUP MT SCH ×2 (08:00→22:01)
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
[2017-07-19] MEDS: MIDAZOLAM 100 MG/NS 100 ML DRIP Premix IV PRN (13:25)
[2017-07-19] MEDS: fentaNYL 2,500 MCG/NS 250 ML IV PRN (13:26)
[2017-07-19] MEDS ORDERED: EPOPROSTENOL NEB SOLUTION 40 NG/KG/MIN 100 ML NEB SCH ×2 (14:00)
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
[2017-07-19] MEDS ORDERED: EPOPROSTENOL NEB SOLUTION 30 NG/KG/MIN 100 ML NEB SCH ×2 (22:00)
[2017-07-20] VITALS (17 sets, daily range): BP systolic 125–157; BP diastolic 63–76; PULSE 102–116; RESP 20–24; TEMP 98.1–100.3; O2SAT 95–100
[2017-07-20] MEDS: MIDAZOLAM 100 MG/NS 100 ML DRIP Premix IV PRN ×2 (03:37→14:58)
[2017-07-20] MEDS: CHLORHEXIDINE GLUCONATE 2 % 1 PACK (2 CLOTHS) TOP SCH (04:00)
[2017-07-20] MEDS: RESP: ALBUTEROL 2.5 MG/IPRATROPIUM 0.5 MG NEB (SCH) NEB ×2 (04:09→08:49)
[2017-07-20 04:19] LABS: AUTOMATED NEUTROPHIL # 29.5 TH/MM3 (1.8-7.7); BASOPHIL % 0.1 % (0.0-2.0); EOSINOPHIL # 0.2 TH/MM3 (0-0.4); EOSINOPHIL % 0.5 % (0.0-4.0); HEMATOCRIT 26.1 % (39.0-51.0); HEMOGLOBIN 8.7 GM/DL (13.0-17.0); LYMPH % 1.7 % (9.0-44.0); LYMPHOCYTE # 0.5 TH/MM3 (1.0-4.8); MEAN CELL VOLUME 88.1 FL (80.0-100.0); MEAN CORPUSCULAR HEMOGLOBIN 29.3 PG (27.0-34.0); MEAN CORPUSCULAR HGB CONC 33.2 % (32.0-36.0); MEAN PLATELET VOLUME 9.1 FL (7.0-11.0); MONO % 5.7 % (0.0-8.0); MONOCYTE # 1.8 TH/MM3 (0-0.9); PLATELET COUNT 100 TH/MM3 (150-450); RED BLOOD COUNT 2.96 MIL/MM3 (4.50-5.90); RED CELL DISTRIBUTION WIDTH 17.6 % (11.6-17.2); WHITE BLOOD COUNT 32.1 TH/MM3 (4.0-11.0)
[2017-07-20 04:43] LABS: ALBUMIN 2.3 GM/DL (3.4-5.0); BICARBONATE 27.3 MEQ/L (21.0-32.0); CALCIUM 6.4 MG/DL (8.5-10.1); CREATININE 7.62 MG/DL (0.60-1.30); TOTAL BILIRUBIN ADULT 1.2 MG/DL (0.2-1.0)
[2017-07-20 04:46] LABS: CALCIUM-PROTEIN CORRECTED 6.9 MG/DL (8.5-10.1)
[2017-07-20 05:05] LABS: BANDS 3 % (0-6); CORRECTED NUCLEATED RBC 1 /100 WBC (0-0); LYMPHOCYTES 4 % (9-44); MONOCYTES 5 % (0-8); MYELOCYTES 1 % (0-0); NEUTROPHIL # MANUAL DIFF 28.6 TH/MM3 (1.8-7.7); NUCLEATED RED BLOOD CELL 1 (0-0); POLYS (SEG NEUTROPHILS) 85 % (16-70)
[2017-07-20] MEDS: HEPARIN SODIUM - SQ 10,000 UNITS/ML VIAL SQ SCH ×3 (05:50→21:25)
[2017-07-20] MEDS: PANTOPRAZOLE SODIUM 40 MG VIAL IVP SCH (05:50)
--- NOTE | 2017-07-20 05:52 | RADRPT ---
EXAM DATE/TIME: 07/20/2017 05:17 [facility] COMPARISON: CHEST SINGLE AP, July 19, 2017, 4:54. INDICATIONS : Short of breath. MEDICAL HISTORY : None. SURGICAL HISTORY : None. ENCOUNTER: Subsequent ACUITY: 4 - 6 days PAIN SCORE: Non-responsive. LOCATION: Bilateral chest FINDINGS: Endotracheal tube in good position. NG enters stomach. Left chest tube without pneumothorax. Left gloria tral line in left brachiocephalic vein. Bilateral mostly basilar airspace disease similar to July 19 . Small effusions. CONCLUSION: 1. Stable exam compared with July 19. Omari Moraes MD on July 20, 2017 at 5:50 Board Certified Radiologist. This report was verified electronically.
[2017-07-20] MEDS ORDERED: EPOPROSTENOL NEB SOLUTION 20 NG/KG/MIN 100 ML NEB SCH ×2 (06:00)
[2017-07-20] MEDS: CHLORHEXIDINE 0.12% (ORAL KIT) 15 ML CUP MT SCH ×2 (08:00→20:00)
--- NOTE | 2017-07-20 09:00 | PD.OP ---
Operative Report Date of Surgery: Jul 16, 2017 Preoperative Diagnosis: Multitrauma,shock,left pleural effusion Postoperative Diagnosis: Multitrauma,shock,left pleural effusion Procedure: Left chest tube thoracostomy Surgeon: Carmen Max Lens Silverer(s): none Operation and Findings: Patients left chest was sterilly prepped and draped,Level 5 ICR tranverse incision was placed ,dissection to the superior margin of the rib was performed,pleural space was entered and a [address] inserted,secured to skin with -0 silk.CXR shows good position of the tube. Carmen Max MD Jul 20, 2017 08:59
[2017-07-20] MEDS: fentaNYL 2,500 MCG/NS 250 ML IV PRN (09:12)
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
[2017-07-20] MEDS ORDERED: CALCIUM GLUCONATE 10% 1 GM/10 ML VIAL IV PUSH ONE (10:45)
[2017-07-20] MEDS ORDERED: SODIUM BICARBONATE 8.4% INJ 50 MEQ/50 ML SYR IV PUSH ONE (10:45)
[2017-07-20] MEDS ORDERED: EPOPROSTENOL NEB SOLUTION 10 NG/KG/MIN 100 ML NEB SCH ×2 (14:00)
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
[2017-07-20] MEDS: EPOETIN ALFA 10,000 UNITS/ML VIAL IV PUSH PRN (16:15)
[2017-07-20] MEDS: GENTAMICIN SULFATE 20 MG/2 ML VIAL OTHER PRN (16:15)
[2017-07-20] MEDS: HEPARIN SODIUM - IV 10,000 UNITS/10 ML VIAL PRN (16:16)
[2017-07-21] VITALS (16 sets, daily range): BP systolic 129–146; BP diastolic 48–63; PULSE 106–118; RESP 20–24; TEMP 99.4–101.1; O2SAT 91–97
[2017-07-21] MEDS: CHLORHEXIDINE GLUCONATE 2 % 1 PACK (2 CLOTHS) TOP SCH (00:51)
[2017-07-21] MEDS ORDERED: POVIDONE IODINE 5% (ANTISEPSIS KIT) 4 APPLICATIONS EACH NARE PRN (01:30)
[2017-07-21] MEDS ORDERED: SODIUM CHLORID 0.9% 500 ML IV PRN (01:30)
[2017-07-21] MEDS ORDERED: CHLORHEXIDINE GLUCONATE 2 % 1 PACK (2 CLOTHS) TOPICAL PRN (01:30)
[2017-07-21] MEDS ORDERED: LACTATED RINGER'S 1000 ML IV PRN (01:45)
[2017-07-21] MEDS: fentaNYL 2,500 MCG/NS 250 ML IV PRN ×2 (03:39→13:49)
[2017-07-21] MEDS: MIDAZOLAM 100 MG/NS 100 ML DRIP Premix IV PRN ×2 (03:56→13:49)
[2017-07-21 04:08] LABS: HEMATOCRIT 27.5 % (39.0-51.0); MEAN CELL VOLUME 88.1 FL (80.0-100.0); MEAN CORPUSCULAR HEMOGLOBIN 28.9 PG (27.0-34.0); MEAN CORPUSCULAR HGB CONC 32.8 % (32.0-36.0); MEAN PLATELET VOLUME 9.7 FL (7.0-11.0); PLATELET COUNT 149 TH/MM3 (150-450); RED BLOOD COUNT 3.12 MIL/MM3 (4.50-5.90); RED CELL DISTRIBUTION WIDTH 17.4 % (11.6-17.2); WHITE BLOOD COUNT 28.4 TH/MM3 (4.0-11.0)
[2017-07-21 04:21] LABS: INTERNATIONAL NORMALIZED RATIO 1.2 RATIO; PROTHROMBIN TIME - PATIENT 12.1 SEC (9.8-11.6)
[2017-07-21 04:22] LABS: CALCIUM 7.1 MG/DL (8.5-10.1); CREATININE 7.71 MG/DL (0.60-1.30); MAGNESIUM 2.5 MG/DL (1.5-2.5); PHOSPHORUS 5.3 MG/DL (2.5-4.9)
[2017-07-21 04:43] LABS: CALCIUM-PROTEIN CORRECTED 7.6 MG/DL (8.5-10.1); TOTAL PROTEIN 6.1 GM/DL (6.4-8.2)
[2017-07-21 05:12] LABS: BANDS 16 % (0-6); CORRECTED NUCLEATED RBC 4 /100 WBC (0-0); LYMPHOCYTES 4 % (9-44); MONOCYTES 8 % (0-8); NUCLEATED RED BLOOD CELL 4 (0-0); POLYS (SEG NEUTROPHILS) 72 % (16-70)
[2017-07-21 05:16] LABS: DOHLE BODIES PRESENT (NONE SEEN); TOXIC GRANULATION 1+ (NORMAL); TOXIC VACUOLATION PRESENT (NONE SEEN)
[2017-07-21] MEDS: HEPARIN SODIUM - SQ 10,000 UNITS/ML VIAL SQ SCH ×3 (06:00→20:56)
--- NOTE | 2017-07-21 06:01 | RADRPT ---
EXAM DATE/TIME: 07/21/2017 05:27 [facility] COMPARISON: CHEST SINGLE AP, July 20, 2017, 5:17. INDICATIONS : Shortness of breath. MEDICAL HISTORY : None. SURGICAL HISTORY : None. ENCOUNTER: Subsequent ACUITY: 4 - 6 days PAIN SCORE: Non-responsive. LOCATION: Bilateral chest FINDINGS: Endotracheal tube in good position. NG enters stomach. Left chest tube without pneumothorax. Left gloria tral line tip in left brachiocephalic vein. Bilateral basilar airspace consolidation increased since July 20, especially on the right. CONCLUSION: 1. Support apparatus unchanged. Increasing basilar airspace disease, especially on the right since Ap ril 24. Omari Moraes MD on July 21, 2017 at 5:58 Board Certified Radiologist. This report was verified electronically.
[2017-07-21] MEDS: PANTOPRAZOLE SODIUM 40 MG VIAL IVP SCH (06:06)
[2017-07-21] MEDS: CHLORHEXIDINE 0.12% (ORAL KIT) 15 ML CUP MT SCH ×2 (08:00→20:56)
--- NOTE | 2017-07-21 08:48 | EKG ---
Date Performed: 07/21/2017 Time Performed: 04:55:42 PTAGE: 21 years EKG: Sinus tachycardia Normal ECG except for rate NO PREVIOUS TRACING DOCTOR: Houston Odonnell Interpretating Date/Time 07/21/2017 08:47:05
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
[2017-07-21] MEDS ORDERED: PIPERACIL-TAZO 4.5 GM PREMIX 100 ML IV ONE (10:30)
[2017-07-21] MEDS ORDERED: SUFentanil INJ 250 MCG/5 ML AMP ONE (11:00)
[2017-07-21] MEDS ORDERED: ceFAZolin INJ 1,000 MG VIAL IV ONE ×2 (11:34→12:00)
[2017-07-21] MEDS ORDERED: VECURONIUM BROMIDE 20 MG VIAL IV ONE (12:00)
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
[2017-07-21] MEDS ORDERED: SODIUM BICARBONATE 8.4% INJ 50 MEQ/50 ML SYR IV PUSH ONE (15:00)
[2017-07-21] MEDS ORDERED: CALCIUM GLUCONATE INJ 1 GM in SODIUM CHLORIDE 0.9% INJ 100 ML IV ONE (15:00)
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
--- NOTE | 2017-07-21 16:34 | RADRPT ---
EXAM DATE/TIME: 07/21/2017 16:16 [facility] COMPARISON: CHEST SINGLE AP, July 21, 2017, 5:27. INDICATIONS : Shortness of breath MEDICAL HISTORY : None. SURGICAL HISTORY : None. ENCOUNTER: Subsequent ACUITY: 4 - 6 days PAIN SCORE: Non-responsive. LOCATION: Bilateral chest FINDINGS: A single view of the chest demonstrates a stable large bibasilar infiltrates right greater left. The ET tube and NG tube are in good position. There are air bronchograms in the medial right lung base. N o visible pneumothorax. Left chest tube in good position. The cardiomediastinal contours are unremar kable. Osseous structures are intact. CONCLUSION: Dense bilateral infiltrates right greater left. Tubes and catheter in good position in. Houston Clement MD on July 21, 2017 at 16:30 Board Certified Radiologist. This report was verified electronically.
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
[2017-07-21] MEDS ORDERED: CISATRACURIUM BESYLATE 20 MG/10 ML VIAL IV PUSH ONE (17:00)
[2017-07-21] MEDS: LINEZOLID 600 MG PREMIX 300 ML IV SCH (17:42)
[2017-07-21] MEDS: CISATRACURIUM INJ 100 MG in SODIUM CHLOR 0.9% 250 ML INJ 250 ML IV PRN (17:49)
[2017-07-21] MEDS: EPOPROSTENOL NEB SOLUTION 20 NG/KG/MIN 100 ML NEB SCH ×2 (18:20)
--- NOTE | 2017-07-21 19:47 | RADRPT ---
EXAM DATE/TIME: 07/21/2017 18:57 [facility] COMPARISON: No previous studies available for comparison. INDICATIONS : Bilateral lower extremity edema. MEDICAL HISTORY : Renal failure. Respiratory failure. SURGICAL HISTORY : Splenectomy. Appendectomy. ENCOUNTER: Initial ACUITY: 1 day PAIN SCORE: Non-responsive LOCATION: Bilateral Lower extremity TECHNIQUE: Venous ultrasound of the left and right leg was performed from the inguinal ligament to the proximal calf. Real-time, color Doppler and spectral tracing, compression and augmentation techniques were us ed. FINDINGS: RIGHT LEG: There is normal compressibility of the deep venous system from the inguinal region to the proximal ca lf. No echogenic clot is seen in the lumen of the common femoral, femoral, popliteal, and posterior tibial veins. There is a normal response of the venous system to proximal and distal augmentation an d respiration. LEFT LEG: There is normal compressibility of the deep venous system from the inguinal region to the proximal ca lf. No echogenic clot is seen in the lumen of the common femoral, femoral, popliteal, and posterior tibial veins. There is a normal response of the venous system to proximal and distal augmentation an d respiration. CONCLUSION: Negative study. No venous thrombosis of either lower extremity. Marvin Redding MD on July 21, 2017 at 19:44 Board Certified Radiologist. This report was verified electronically.
[2017-07-21] MEDS: PIPERACIL-TAZO 2.25 GM PREMIX 50 ML IV SCH (21:13)
[2017-07-22] VITALS (19 sets, daily range): BP systolic 119–140; BP diastolic 46–59; PULSE 106–120; RESP 24; TEMP 98.2–100.8; O2SAT 91–97
[2017-07-22] MEDS: PIPERACIL-TAZO 2.25 GM PREMIX 50 ML IV SCH ×3 (01:59→17:21)
[2017-07-22] MEDS: fentaNYL 2,500 MCG/NS 250 ML IV PRN ×2 (01:59→13:25)
[2017-07-22] MEDS: CISATRACURIUM INJ 100 MG in SODIUM CHLOR 0.9% 250 ML INJ 250 ML IV PRN ×4 (02:00→22:06)
[2017-07-22] MEDS: CHLORHEXIDINE GLUCONATE 2 % 1 PACK (2 CLOTHS) TOP SCH (03:10)
[2017-07-22 04:04] LABS: BLOOD, URINE LARGE (NEG); GLUCOSE,URINE 100 mg/dL (NEG); KETONE, URINE NEG (NEG); NITRITE,URINE NEG (NEG); URINE LEUKOCYTE ESTERASE NEG (NEG)
[2017-07-22 04:05] LABS: URINE COLOR DARK-YELLOW (YELLW/STRAW)
[2017-07-22 04:08] LABS: BILIRUBIN, URINE NEG (NEG)
[2017-07-22 04:14] LABS: BACTERIA, URINE OCC /hpf; MUCUS URINE FEW /lpf (OCC)
[2017-07-22 04:49] LABS: HEMATOCRIT 27.3 % (39.0-51.0); HEMOGLOBIN 8.9 GM/DL (13.0-17.0); MEAN CELL VOLUME 88.8 FL (80.0-100.0); MEAN CORPUSCULAR HEMOGLOBIN 28.9 PG (27.0-34.0); MEAN CORPUSCULAR HGB CONC 32.6 % (32.0-36.0); MEAN PLATELET VOLUME 9.9 FL (7.0-11.0); PLATELET COUNT 209 TH/MM3 (150-450); RED BLOOD COUNT 3.08 MIL/MM3 (4.50-5.90); RED CELL DISTRIBUTION WIDTH 16.9 % (11.6-17.2); WHITE BLOOD COUNT 35.5 TH/MM3 (4.0-11.0)
[2017-07-22 05:05] LABS: ALBUMIN 1.5 GM/DL (3.4-5.0); BICARBONATE 25.4 MEQ/L (21.0-32.0); CALCIUM 6.8 MG/DL (8.5-10.1); CALCIUM-PROTEIN CORRECTED 7.5 MG/DL (8.5-10.1); CREATININE 9.48 MG/DL (0.60-1.30); TOTAL BILIRUBIN ADULT 1.4 MG/DL (0.2-1.0); TOTAL PROTEIN 5.7 GM/DL (6.4-8.2)
[2017-07-22] MEDS: MIDAZOLAM 100 MG/NS 100 ML DRIP Premix IV PRN ×2 (05:12→17:29)
[2017-07-22] MEDS: PANTOPRAZOLE SODIUM 40 MG VIAL IVP SCH (05:29)
[2017-07-22] MEDS: LINEZOLID 600 MG PREMIX 300 ML IV SCH ×2 (05:29→17:21)
[2017-07-22] MEDS: HEPARIN SODIUM - SQ 10,000 UNITS/ML VIAL SQ SCH ×3 (05:29→22:15)
[2017-07-22 06:28] LABS: BANDS 12 % (0-6); CORRECTED NUCLEATED RBC 2 /100 WBC (0-0); MONOCYTES 1 % (0-8); MYELOCYTES 2 % (0-0); NEUTROPHIL # MANUAL DIFF 35.1 TH/MM3 (1.8-7.7); NUCLEATED RED BLOOD CELL 2 (0-0); POLYS (SEG NEUTROPHILS) 85 % (16-70)
--- NOTE | 2017-07-22 06:42 | RADRPT ---
EXAM DATE/TIME: 07/22/2017 05:35 [facility] COMPARISON: CHEST SINGLE AP, July 21, 2017, 16:16. INDICATIONS : Shortness of breath MEDICAL HISTORY : None. SURGICAL HISTORY : None. ENCOUNTER: Subsequent ACUITY: 4 - 6 days PAIN SCORE: Non-responsive. LOCATION: Bilateral chest FINDINGS: A single view of the chest demonstrates unchanged bilateral airspace disease, greater in the lung bas es. Endotracheal tube, nasogastric tube, left subclavian line and left-sided chest tube stable positi ons. The cardiomediastinal contours are unremarkable. Osseous structures are intact. CONCLUSION: Stable chest with bilateral airspace disease. Samm Cosby MD on July 22, 2017 at 6:39 Board Certified Radiologist. This report was verified electronically.
[2017-07-22] MEDS: EPOPROSTENOL NEB SOLUTION 20 NG/KG/MIN 100 ML NEB SCH ×6 (06:49→18:04)
[2017-07-22] MEDS: CHLORHEXIDINE 0.12% (ORAL KIT) 15 ML CUP MT SCH ×2 (08:00→20:06)
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
[2017-07-22] MEDS ORDERED: INSULIN HUMAN REGULAR 1,000 UNITS/10 ML VIAL IV PUSH ONE (11:00)
[2017-07-22] MEDS ORDERED: DEXTROSE 50% IN WATER 50 ML SYRINGE IV PUSH ONE (11:00)
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
[2017-07-22] MEDS ORDERED: CALCIUM GLUCONATE INJ 1 GM in DEXTROSE 5% IN WATER 100ML INJ 100 ML IV ONE ×2 (14:00)
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
[2017-07-23] VITALS (20 sets, daily range): BP systolic 133–147; BP diastolic 52–62; PULSE 97–114; RESP 24; TEMP 98.6–100.2; O2SAT 94–98
[2017-07-23] MEDS: PIPERACIL-TAZO 2.25 GM PREMIX 50 ML IV SCH ×3 (01:23→17:17)
[2017-07-23] MEDS: fentaNYL 2,500 MCG/NS 250 ML IV PRN ×2 (02:34→13:43)
[2017-07-23] MEDS: CHLORHEXIDINE GLUCONATE 2 % 1 PACK (2 CLOTHS) TOP SCH (03:17)
[2017-07-23] MEDS: EPOPROSTENOL NEB SOLUTION 20 NG/KG/MIN 100 ML NEB SCH ×6 (03:17→19:00)
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
[2017-07-23 05:37] LABS: HEMATOCRIT 26.2 % (39.0-51.0); HEMOGLOBIN 8.6 GM/DL (13.0-17.0); MEAN CELL VOLUME 88.8 FL (80.0-100.0); MEAN CORPUSCULAR HEMOGLOBIN 29.2 PG (27.0-34.0); MEAN CORPUSCULAR HGB CONC 32.9 % (32.0-36.0); MEAN PLATELET VOLUME 9.7 FL (7.0-11.0); PLATELET COUNT 244 TH/MM3 (150-450); RED BLOOD COUNT 2.95 MIL/MM3 (4.50-5.90); RED CELL DISTRIBUTION WIDTH 16.9 % (11.6-17.2); WHITE BLOOD COUNT 43.9 TH/MM3 (4.0-11.0)
[2017-07-23 05:57] LABS: BICARBONATE 27.2 MEQ/L (21.0-32.0); CALCIUM 7.9 MG/DL (8.5-10.1); CREATININE 9.31 MG/DL (0.60-1.30)
[2017-07-23] MEDS: PANTOPRAZOLE SODIUM 40 MG VIAL IVP SCH (06:12)
[2017-07-23] MEDS: LINEZOLID 600 MG PREMIX 300 ML IV SCH ×2 (06:12→17:17)
[2017-07-23] MEDS: HEPARIN SODIUM - SQ 10,000 UNITS/ML VIAL SQ SCH ×3 (06:12→21:05)
[2017-07-23] MEDS: CISATRACURIUM INJ 100 MG in SODIUM CHLOR 0.9% 250 ML INJ 250 ML IV PRN ×2 (06:48→17:51)
[2017-07-23 06:57] LABS: BANDS 3 % (0-6); CORRECTED NUCLEATED RBC 7 /100 WBC (0-0); LYMPHOCYTES 1 % (9-44); MONOCYTES 3 % (0-8); NEUTROPHIL # MANUAL DIFF 41.3 TH/MM3 (1.8-7.7); NUCLEATED RED BLOOD CELL 7 (0-0); POLYS (SEG NEUTROPHILS) 91 % (16-70)
[2017-07-23 07:00] LABS: TOXIC GRANULATION 1+ (NORMAL)
[2017-07-23] MEDS: CHLORHEXIDINE 0.12% (ORAL KIT) 15 ML CUP MT SCH ×2 (08:00→19:21)
[2017-07-23] MEDS ORDERED: INSULIN HUMAN REGULAR 1,000 UNITS/10 ML VIAL IV PUSH ONE (08:45)
[2017-07-23] MEDS ORDERED: SODIUM BICARBONATE 8.4% SOLN 50 MEQ/50 ML VIAL SLOW IVP ONE (08:45)
[2017-07-23] MEDS ORDERED: CALCIUM GLUCONATE 10% 1 GM/10 ML VIAL SLOW IVP ONE (08:45)
[2017-07-23] MEDS ORDERED: RESP: ALBUTEROL 2.5 MG/3 ML NEB (SCH) NEB ONE (08:45)
[2017-07-23] MEDS ORDERED: DEXTROSE 50% IN WATER 50 ML VIAL(D50) IV PUSH ONE (08:45)
[2017-07-23] MEDS ORDERED: SODIUM POLYSTYRENE SULFONATE SUSP 15 GM/60 ML CUP PO ONE (08:45)
[2017-07-23] MEDS: ARTIFICIAL TEARS OPTH OINT 3.5 APPLIC/3.5 GM TUBO EACH EYE SCH ×2 (09:00→21:05)
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
[2017-07-23] MEDS: DOCUSATE SODIUM 100 MG/10 ML UDC PO SCH ×2 (09:30→21:05)
[2017-07-23] MEDS: MIDAZOLAM 100 MG/NS 100 ML DRIP Premix IV PRN ×2 (09:53→23:21)
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
[2017-07-23 11:46] LABS: ALBUMIN 1.8 GM/DL (3.4-5.0); DIRECT BILIRUBIN ADULT 1.4 MG/DL (0.0-0.2); PHOSPHORUS 7.8 MG/DL (2.5-4.9)
[2017-07-23 12:00] LABS: INDIRECT BILIRUBIN 0.3 MG/DL (0.0-0.8); TOTAL BILIRUBIN ADULT 1.7 MG/DL (0.2-1.0); TOTAL PROTEIN 5.8 GM/DL (6.4-8.2)
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
[2017-07-24] VITALS (17 sets, daily range): BP systolic 128–139; BP diastolic 40–57; PULSE 106–113; RESP 24; TEMP 98.9–101.1; O2SAT 93–100
[2017-07-24] MEDS: CISATRACURIUM INJ 100 MG in SODIUM CHLOR 0.9% 250 ML INJ 250 ML IV PRN ×4 (01:51→19:41)
[2017-07-24] MEDS: PIPERACIL-TAZO 2.25 GM PREMIX 50 ML IV SCH ×3 (01:57→18:45)
[2017-07-24] MEDS: CHLORHEXIDINE GLUCONATE 2 % 1 PACK (2 CLOTHS) TOP SCH (03:40)
[2017-07-24] MEDS: ACETAMINOPHEN 1000 MG/100 ML 100 ML IV PRN (03:51)
[2017-07-24 04:29] LABS: AUTOMATED NEUTROPHIL # 45.8 TH/MM3 (1.8-7.7); BASOPHIL # 0.1 TH/MM3 (0-0.2); BASOPHIL % 0.2 % (0.0-2.0); EOSINOPHIL # 0.3 TH/MM3 (0-0.4); EOSINOPHIL % 0.6 % (0.0-4.0); HEMOGLOBIN 8.3 GM/DL (13.0-17.0); LYMPH % 2.8 % (9.0-44.0); LYMPHOCYTE # 1.4 TH/MM3 (1.0-4.8); MEAN CELL VOLUME 88.3 FL (80.0-100.0); MEAN CORPUSCULAR HEMOGLOBIN 28.4 PG (27.0-34.0); MEAN CORPUSCULAR HGB CONC 32.1 % (32.0-36.0); MEAN PLATELET VOLUME 9.8 FL (7.0-11.0); MONO % 3.6 % (0.0-8.0); MONOCYTE # 1.8 TH/MM3 (0-0.9); NEUT % 92.8 % (16.0-70.0); PLATELET COUNT 312 TH/MM3 (150-450); RED BLOOD COUNT 2.94 MIL/MM3 (4.50-5.90); RED CELL DISTRIBUTION WIDTH 17.1 % (11.6-17.2); WHITE BLOOD COUNT 49.4 TH/MM3 (4.0-11.0)
[2017-07-24 04:52] LABS: ALBUMIN 1.8 GM/DL (3.4-5.0); ALKALINE PHOSPHATASE 117 U/L (45-117); ALT (GPT) 299 U/L (12-78); AST (GOT) 209 U/L (15-37); BICARBONATE 25.6 MEQ/L (21.0-32.0); BLOOD UREA NITROGEN 138 MG/DL (7-18); CALCIUM 8.3 MG/DL (8.5-10.1); CHLORIDE 98 MEQ/L (98-107); GLOMERULAR FILTRATION RATE 6 ML/MIN (>89); GLUCOSE,RANDOM 83 MG/DL (74-106); PHOSPHORUS 8.5 MG/DL (2.5-4.9); SODIUM (NA) 140 MEQ/L (136-145); TOTAL BILIRUBIN ADULT 1.7 MG/DL (0.2-1.0); TOTAL PROTEIN 5.9 GM/DL (6.4-8.2)
[2017-07-24 05:08] LABS: CREATININE 10.77 MG/DL (0.60-1.30)
[2017-07-24 05:15] LABS: BANDS 3 % (0-6); CORRECTED NUCLEATED RBC 3 /100 WBC (0-0); LYMPHOCYTES 1 % (9-44); METAMYELOCYTES 1 % (0-1); MONOCYTES 4 % (0-8); MYELOCYTES 1 % (0-0); NEUTROPHIL # MANUAL DIFF 46.4 TH/MM3 (1.8-7.7); NUCLEATED RED BLOOD CELL 3 (0-0); POLYS (SEG NEUTROPHILS) 89 % (16-70)
[2017-07-24 05:16] LABS: TOXIC GRANULATION 1+ (NORMAL)
--- NOTE | 2017-07-24 05:23 | RADRPT ---
EXAM DATE/TIME: 07/24/2017 04:18 [facility] COMPARISON: CHEST SINGLE AP, July 23, 2017, 3:50. INDICATIONS : Respiratory failure MEDICAL HISTORY : Renal failure. Respiratory failure. SURGICAL HISTORY : Splenectomy. Appendectomy. ENCOUNTER: Subsequent ACUITY: 1 week PAIN SCORE: Non-responsive. LOCATION: Bilateral chest FINDINGS: ET tube tip well above the elan. Gastric tube traverses the [id number]. Left chest tube tip pr ojects over the medial upper chest. No evidence of pneumothorax. Left subclavian catheter tip proje cts over the innominate vein, stable in position. Patchy infiltrates in both lower lungs, right grea ter than left, similar to prior CONCLUSION: Stable bilateral mid and lower lung infiltrates, right greater than left. The Bob Coto MD on July 24, 2017 at 5:20 Board Certified Radiologist. This report was verified electronically.
[2017-07-24] MEDS: PANTOPRAZOLE SODIUM 40 MG VIAL IVP SCH (05:57)
[2017-07-24] MEDS: LINEZOLID 600 MG PREMIX 300 ML IV SCH ×2 (05:57→18:45)
[2017-07-24] MEDS: EPOPROSTENOL NEB SOLUTION 20 NG/KG/MIN 100 ML NEB SCH ×6 (05:57→21:14)
[2017-07-24] MEDS: HEPARIN SODIUM - SQ 10,000 UNITS/ML VIAL SQ SCH ×3 (05:58→21:13)
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
[2017-07-24] MEDS: DOCUSATE SODIUM 100 MG/10 ML UDC PO SCH ×2 (09:00→21:13)
[2017-07-24] MEDS: ARTIFICIAL TEARS OPTH OINT 3.5 APPLIC/3.5 GM TUBO EACH EYE SCH ×2 (09:05→21:13)
[2017-07-24] MEDS: CHLORHEXIDINE 0.12% (ORAL KIT) 15 ML CUP MT SCH ×2 (09:06→21:14)
[2017-07-24] MEDS: RESP: ALBUTEROL 2.5 MG/IPRATROPIUM 0.5 MG NEB (PRN) NEB (09:07)
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
[2017-07-24] MEDS ORDERED: metroNIDAZOLE 500 MG INJ 100 ML IV SCH (13:00)
[2017-07-24] MEDS: MIDAZOLAM 100 MG/NS 100 ML DRIP Premix IV PRN (13:10)
[2017-07-24] MEDS ORDERED: LIDOCAINE HCL 1% 50 ML VIAL ONE (14:26)
[2017-07-24] MEDS: fentaNYL 2,500 MCG/NS 250 ML IV PRN (15:28)
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
[2017-07-24] MEDS: GENTAMICIN SULFATE 20 MG/2 ML VIAL OTHER PRN (15:53)
[2017-07-24] MEDS: HEPARIN SODIUM - IV 10,000 UNITS/10 ML VIAL PRN (15:53)
[2017-07-24] MEDS: EPOETIN ALFA 10,000 UNITS/ML VIAL IV PUSH PRN (15:53)
--- NOTE | 2017-07-24 15:54 | RADRPT ---
EXAM DATE/TIME: 07/24/2017 15:12 [facility] COMPARISON: CT THORAX W/O CONTRAST, July 24, 2017, 11:42. CHEST SINGLE AP, July 24, 2017, 4:18. INDICATIONS : Right sided chest tube placement. MEDICAL HISTORY : Renal failure. Respiratory failure. SURGICAL HISTORY : Splenectomy. Appendectomy. ENCOUNTER: Initial ACUITY: 1 day PAIN SCORE: Non-responsive. LOCATION: Bilateral chest FINDINGS: There is a new right chest tube in place. There is persistent density at the medial right mid and low er lung likely to atelectasis. There does appear to be new lucency at the inferior lateral right ches t which could represent some pleural air versus air within expanded lung with a paucity of parenchyma l markings. A pleural line is not seen. A pneumothorax over the upper lung is not seen. No midline sh ift is seen. Left chest tube is still present. ET tube and NG tube are well placed. The heart size is normal. There is increased density at the left base likely related to consolidation or atelectasis. Clips are seen in the midline upper abdomen. The CONCLUSION: New right chest tube with decreased density now seen over the right chest likely related to draining of the effusion. There is some lucency seen at the inferior lateral right chest which could be relate d to pleural air. No midline shift is seen. A pneumothorax over the upper right chest is not seen. Th e lucency at the lateral right chest could be related to air within expanded lung although parenchyma l markings in this region are difficult to confirm. There continues to be right lower lobe suspected atelectasis or consolidation. Persistent left lower lobe atelectasis consolidation with a left chest tube present. Marvin Steele MD on July 24, 2017 at 15:44 Board Certified Radiologist. This report was verified electronically.
[2017-07-24 16:34] LABS: GLUCOSE,PLEURAL FLUID LESS THAN 1 MG/DL; TOTAL PROTEIN,PLEURAL FLUID 3.7 GM/DL
[2017-07-24 16:43] LABS: PLEURAL FLUID POLYS (SEGS) 89 %; PLEURAL FLUID RBC 4577 /MM3 (0-0); PLEURAL FLUID WBC 15475 /MM3 (0-10)
[2017-07-24 16:44] LABS: PLEURAL FLUID LYMPHS 8 %; PLEURAL FLUID MONOS 3 %
[2017-07-24] MEDS: metroNIDAZOLE 500 MG INJ 100 ML IV SCH (16:47)
--- NOTE | 2017-07-24 17:50 | MP ---
cc: Agustina Hadley MD, Slobodan MD DATE OF OPERATION: 07/24/2017 PREOPERATIVE DIAGNOSIS: Respiratory failure, traumatic injury to the chest, right hemothorax. POSTOPERATIVE DIAGNOSIS: Respiratory failure, traumatic injury to the chest, right hemothorax. OPERATIVE PROCEDURE: Right tube thoracostomy . SURGEON: Agustina Hadley MD ANESTHESIA: 1% Xylocaine. ESTIMATED BLOOD LOSS: Minimal. DESCRIPTION OF PROCEDURE: The patient was prepped and draped in usual fashion. Area infiltrated with 1% Xylocaine. A small incision was made in the mid axillary line. Incision is then deepened down over the rib and into the chest. A 28-German chest tube is placed and sutured in with 0 silk. A chest x-ray is obtained. About 800 mL of old serosanguineous fluid obtained. The patient tolerated the procedure well. MD COURTNEY Muñoz/ , 05:31 PM , 05:48 PM
[2017-07-25] VITALS (16 sets, daily range): BP systolic 106–117; BP diastolic 42–56; PULSE 106–112; RESP 24; TEMP 99.6–100.9; O2SAT 95–100
[2017-07-25] MEDS: metroNIDAZOLE 500 MG INJ 100 ML IV SCH ×3 (00:01→16:55)
[2017-07-25] MEDS: PIPERACIL-TAZO 2.25 GM PREMIX 50 ML IV SCH ×3 (02:15→17:24)
[2017-07-25] MEDS: MIDAZOLAM 100 MG/NS 100 ML DRIP Premix IV PRN ×2 (02:15→13:51)
[2017-07-25] MEDS: CISATRACURIUM INJ 100 MG in SODIUM CHLOR 0.9% 250 ML INJ 250 ML IV PRN (02:16)
[2017-07-25] MEDS: fentaNYL 2,500 MCG/NS 250 ML IV PRN ×2 (02:16→14:00)
[2017-07-25] MEDS: CHLORHEXIDINE GLUCONATE 2 % 1 PACK (2 CLOTHS) TOP SCH (04:00)
--- NOTE | 2017-07-25 05:10 | RADRPT ---
EXAM DATE/TIME: 07/25/2017 03:50 [facility] COMPARISON: CHEST SINGLE AP, July 24, 2017, 15:12. INDICATIONS : Right sided chest tube placement MEDICAL HISTORY : Renal failure. Respiratory failure. SURGICAL HISTORY : Splenectomy. Appendectomy. ENCOUNTER: Subsequent ACUITY: 2 days PAIN SCORE: Non-responsive. LOCATION: Bilateral chest FINDINGS: Bilateral chest tubes stable in position. ET tube well above the elan. Gastric tube traverses the [id number]. Patchy areas of partially consolidative infiltrate in the mid and lower lungs bilate rally, right greater than left. Interval resolution of the lateral hypodensity in the lower right ch est. No evidence of pneumothorax. CONCLUSION: No evidence of pneumothorax. Persistent bilateral mid and lower lung consolidative infiltrates. Bob Coto MD on July 25, 2017 at 5:06 Board Certified Radiologist. This report was verified electronically.
[2017-07-25 05:12] LABS: AUTOMATED NEUTROPHIL # 42.2 TH/MM3 (1.8-7.7); BASOPHIL # 0.1 TH/MM3 (0-0.2); BASOPHIL % 0.2 % (0.0-2.0); EOSINOPHIL # 0.4 TH/MM3 (0-0.4); EOSINOPHIL % 0.8 % (0.0-4.0); HEMATOCRIT 23.8 % (39.0-51.0); HEMOGLOBIN 7.7 GM/DL (13.0-17.0); LYMPH % 3.8 % (9.0-44.0); LYMPHOCYTE # 1.8 TH/MM3 (1.0-4.8); MEAN CELL VOLUME 88.8 FL (80.0-100.0); MEAN CORPUSCULAR HEMOGLOBIN 28.9 PG (27.0-34.0); MEAN CORPUSCULAR HGB CONC 32.5 % (32.0-36.0); MEAN PLATELET VOLUME 9.8 FL (7.0-11.0); MONO % 5.4 % (0.0-8.0); MONOCYTE # 2.5 TH/MM3 (0-0.9); NEUT % 89.8 % (16.0-70.0); PLATELET COUNT 369 TH/MM3 (150-450); RED BLOOD COUNT 2.68 MIL/MM3 (4.50-5.90); RED CELL DISTRIBUTION WIDTH 16.6 % (11.6-17.2)
[2017-07-25] MEDS: PANTOPRAZOLE SODIUM 40 MG VIAL IVP SCH (05:36)
[2017-07-25] MEDS: LINEZOLID 600 MG PREMIX 300 ML IV SCH ×2 (05:36→17:51)
[2017-07-25] MEDS: HEPARIN SODIUM - SQ 10,000 UNITS/ML VIAL SQ SCH ×3 (05:36→20:47)
[2017-07-25 05:44] LABS: ALBUMIN 1.8 GM/DL (3.4-5.0); ALKALINE PHOSPHATASE 102 U/L (45-117); ALT (GPT) 173 U/L (12-78); AST (GOT) 152 U/L (15-37); BICARBONATE 25.1 MEQ/L (21.0-32.0); BLOOD UREA NITROGEN 135 MG/DL (7-18); CALCIUM 8.2 MG/DL (8.5-10.1); CHLORIDE 99 MEQ/L (98-107); GLOMERULAR FILTRATION RATE 6 ML/MIN (>89); GLUCOSE,RANDOM 95 MG/DL (74-106); MAGNESIUM 3.1 MG/DL (1.5-2.5); SODIUM (NA) 139 MEQ/L (136-145); TOTAL BILIRUBIN ADULT 1.4 MG/DL (0.2-1.0); TOTAL PROTEIN 5.8 GM/DL (6.4-8.2)
[2017-07-25 05:57] LABS: CREATININE 10.48 MG/DL (0.60-1.30)
[2017-07-25 06:27] LABS: BANDS 3 % (0-6); CORRECTED NUCLEATED RBC 7 /100 WBC (0-0); LYMPHOCYTES 1 % (9-44); METAMYELOCYTES 3 % (0-1); MONOCYTES 8 % (0-8); MYELOCYTES 1 % (0-0); NEUTROPHIL # MANUAL DIFF 42.8 TH/MM3 (1.8-7.7); NUCLEATED RED BLOOD CELL 7 (0-0); POLYS (SEG NEUTROPHILS) 84 % (16-70)
[2017-07-25 06:28] LABS: TARGET CELLS 1+ (NORMAL)
[2017-07-25] MEDS ORDERED: SODIUM BICARBONATE 8.4% INJ 50 MEQ/50 ML SYR IV PUSH ONE (07:30)
[2017-07-25] MEDS ORDERED: DEXTROSE 50% IN WATER 50 ML SYRINGE IV PUSH ONE (07:30)
[2017-07-25] MEDS ORDERED: INSULIN HUMAN REGULAR 1,000 UNITS/10 ML VIAL IV PUSH ONE (07:30)
[2017-07-25] MEDS ORDERED: SODIUM POLYSTYRENE SULFONATE SUSP 15 GM/60 ML CUP PO ONE (07:45)
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
[2017-07-25] MEDS: CHLORHEXIDINE 0.12% (ORAL KIT) 15 ML CUP MT SCH ×2 (08:28→20:00)
[2017-07-25] MEDS: ARTIFICIAL TEARS OPTH OINT 3.5 APPLIC/3.5 GM TUBO EACH EYE SCH ×2 (08:29→20:47)
[2017-07-25] MEDS: DOCUSATE SODIUM 100 MG/10 ML UDC PO SCH ×2 (08:29→20:47)
[2017-07-25] MEDS ORDERED: CALCIUM GLUCONATE INJ 2 GM in DEXTROSE 5% IN WATER 100ML INJ 100 ML IV ONE ×2 (09:00)
[2017-07-25] MEDS: EPOPROSTENOL NEB SOLUTION 20 NG/KG/MIN 100 ML NEB SCH ×2 (11:00)
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
[2017-07-25] MEDS ORDERED: EPOPROSTENOL NEB SOLUTION 20 NG/KG/MIN 100 ML NEB SCH ×2 (13:00)
[2017-07-25] MEDS: GENTAMICIN SULFATE 20 MG/2 ML VIAL OTHER PRN (13:10)
[2017-07-25] MEDS ORDERED: 3% SALINE INJ 500 ML IV SCH (13:30)
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
[2017-07-25] MEDS: EPOPROSTENOL NEB SOLUTION 10 NG/KG/MIN 100 ML NEB SCH ×2 (20:47)
[2017-07-26] VITALS (16 sets, daily range): BP systolic 118–136; BP diastolic 40–60; PULSE 106–117; RESP 20–24; TEMP 99.1–100.3; O2SAT 91–96
[2017-07-26] MEDS: CHLORHEXIDINE GLUCONATE 2 % 1 PACK (2 CLOTHS) TOP SCH (00:03)
[2017-07-26] MEDS: metroNIDAZOLE 500 MG INJ 100 ML IV SCH ×2 (00:03→08:21)
[2017-07-26] MEDS: fentaNYL 2,500 MCG/NS 250 ML IV PRN ×2 (02:00→15:52)
[2017-07-26] MEDS: PIPERACIL-TAZO 2.25 GM PREMIX 50 ML IV SCH ×3 (02:22→17:05)
[2017-07-26] MEDS: MIDAZOLAM 100 MG/NS 100 ML DRIP Premix IV PRN ×2 (02:30→20:00)
[2017-07-26 04:53] LABS: HEMATOCRIT 21.9 % (39.0-51.0); HEMOGLOBIN 7.3 GM/DL (13.0-17.0); MEAN CELL VOLUME 87.6 FL (80.0-100.0); MEAN CORPUSCULAR HEMOGLOBIN 29.2 PG (27.0-34.0); MEAN CORPUSCULAR HGB CONC 33.3 % (32.0-36.0); MEAN PLATELET VOLUME 9.7 FL (7.0-11.0); PLATELET COUNT 414 TH/MM3 (150-450); RED CELL DISTRIBUTION WIDTH 16.3 % (11.6-17.2); WHITE BLOOD COUNT 54.7 TH/MM3 (4.0-11.0)
[2017-07-26] MEDS: EPOPROSTENOL NEB SOLUTION 10 NG/KG/MIN 100 ML NEB SCH ×2 (05:00)
[2017-07-26] MEDS: PANTOPRAZOLE SODIUM 40 MG VIAL IVP SCH (05:09)
[2017-07-26] MEDS: HEPARIN SODIUM - SQ 10,000 UNITS/ML VIAL SQ SCH ×3 (05:09→21:20)
[2017-07-26] MEDS: LINEZOLID 600 MG PREMIX 300 ML IV SCH ×2 (05:09→17:05)
[2017-07-26 05:19] LABS: ALBUMIN 1.7 GM/DL (3.4-5.0); ALKALINE PHOSPHATASE 93 U/L (45-117); ALT (GPT) 122 U/L (12-78); AST (GOT) 122 U/L (15-37); BICARBONATE 26.1 MEQ/L (21.0-32.0); BLOOD UREA NITROGEN 120 MG/DL (7-18); CALCIUM 8.2 MG/DL (8.5-10.1); CHLORIDE 100 MEQ/L (98-107); CREATININE 9.95 MG/DL (0.60-1.30); GLOMERULAR FILTRATION RATE 7 ML/MIN (>89); GLUCOSE,RANDOM 90 MG/DL (74-106); MAGNESIUM 2.9 MG/DL (1.5-2.5); SODIUM (NA) 140 MEQ/L (136-145); TOTAL BILIRUBIN ADULT 1.4 MG/DL (0.2-1.0); TOTAL PROTEIN 5.9 GM/DL (6.4-8.2)
--- NOTE | 2017-07-26 05:26 | RADRPT ---
EXAM DATE/TIME: 07/26/2017 04:45 [facility] COMPARISON: CHEST SINGLE AP, July 25, 2017, 3:50. INDICATIONS : Short of breath. MEDICAL HISTORY : Renal failure. Respiratory failure. SURGICAL HISTORY : Splenectomy. Appendectomy. ENCOUNTER: Subsequent ACUITY: 3 days PAIN SCORE: 0/10 LOCATION: Bilateral chest FINDINGS: A single view of the chest demonstrates a bilateral thoracostomy tubes with no obvious pneumothorax. Left subclavian introducer sheath, endotracheal and nasogastric tubes are all stable in position. Pérez ateral air space disease involving most of the right lower hemithorax and the left lingular region ar e stable with some improving airspace disease in the left base. CONCLUSION: 1. Improving left basilar airspace disease with persistent consolidation in the entire right lower he mithorax and left lingula. 2. Bilateral thoracostomy tubes with no obvious pneumothorax. Life support tubes are stable Alexandro Arias MD on July 26, 2017 at 5:21 Board Certified Radiologist. This report was verified electronically.
[2017-07-26 05:43] LABS: BANDS 5 % (0-6); CORRECTED NUCLEATED RBC 1 /100 WBC (0-0); LYMPHOCYTES 2 % (9-44); METAMYELOCYTES 3 % (0-1); MONOCYTES 1 % (0-8); NEUTROPHIL # MANUAL DIFF 53.1 TH/MM3 (1.8-7.7); NUCLEATED RED BLOOD CELL 1 (0-0); POLYS (SEG NEUTROPHILS) 89 % (16-70)
[2017-07-26] MEDS ORDERED: ROCURONIUM INJ 50 MG/5 ML VIAL IV ONE ×2 (06:45→12:15)
[2017-07-26] MEDS: DOCUSATE SODIUM 100 MG/10 ML UDC PO SCH ×2 (08:21→21:19)
[2017-07-26] MEDS: CHLORHEXIDINE 0.12% (ORAL KIT) 15 ML CUP MT SCH ×2 (08:21→20:00)
[2017-07-26] MEDS: ARTIFICIAL TEARS OPTH OINT 3.5 APPLIC/3.5 GM TUBO EACH EYE SCH ×2 (08:21→21:20)
[2017-07-26] MEDS: SODIUM CHLORIDE 0.9% FLUSH 10 ML FLUSH IV FLUSH PRN (08:23)
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
[2017-07-26] MEDS: MICAFUNGIN INJ 150 MG in SODIUM CHLORIDE 0.9% INJ 100 ML IV SCH (08:52)
[2017-07-26] MEDS: LACTULOSE SYRUP 20 GM/30 ML CUP PO SCH ×2 (09:18→21:19)
[2017-07-26] MEDS ORDERED: ACETAMINOPHEN 500 MG CPLT PO PRN (09:45)
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
[2017-07-26] MEDS: SODIUM CHLORIDE 23.4% INJ 188 MEQ in SODIUM CHLOR 0.9% 1000 ML INJ 1,000 ML IV SCH (10:56)
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
[2017-07-26] MEDS: ALBUMIN 25% INJ 100 ML IV PRN ×2 (13:50→14:00)
[2017-07-26] MEDS: EPOETIN ALFA 10,000 UNITS/ML VIAL IV PUSH PRN (14:09)
[2017-07-26] MEDS: GENTAMICIN SULFATE 20 MG/2 ML VIAL OTHER PRN (14:09)
[2017-07-26] MEDS: HEPARIN SODIUM - IV 10,000 UNITS/10 ML VIAL PRN (14:09)
--- NOTE | 2017-07-26 14:14 | DEATH SUM ---
Summary Demographics Date Pronounced : Jul 26, 2017 Time Of : 12:42 Preliminary Cause of : Multi Organ Failure Rohith Wong MD Jul 26, 2017 14:14
--- NOTE | 2017-07-26 15:14 | PD.WCN.NOT ---
Wound Consult Description: Consult for WOUND MANAGEMENT of open wound on buttocks per DURAN/Dr Wong. Communicated with: Nikki Wong Recommendation: Strict 2 hour turns from left to right sides only, limiting back position for therapies only. Apply Calazime BID and PRN to DEEP TISSUE INJURIES on sacrum/bilateral buttocks to keep dry. USE ONLY disposable wicking ULTRASORB underpads for moisture/incontinence. Additional Information: Patient seen on [facility] for wound evaluation of sacrum. Tube feed placed on hold. Patient was positioned to his right side when entering room. Patient was assisted to his right side with assistance of Claudine RIVERA for assessment of wounds and noted to be lying on 1 ultrasorb and 2 cotton underpads. Calazime was noted to bilateral buttocks and sacrum. Purple non blanching discoloration was noted to bilateral buttocks with partial and full thickness skin loss noted to the periwounds. Left buttock DTI measures 3.5cm x 4cm x 0cm with partial thickness skin loss and red non granulating tissue noted to the periwound. Right buttock DTI with full thickness skin loss measures 4cm x 4cm x 0.1cm with periwound of 2 full thickness skin loss areas measuring 1cm x 2.5cm x 0.2cm each with yellow tissue noted. Periwounds were slow to francisco javier erythema. Patient is unable to tolerate a low air loss alternating mattress at this time per Dr Wong with the current "spinal cord injuries". Calazime was applied to the wounds and periwounds and patient was repositioned and pulled up in bed. Stella Marshall [facility] Jul 26, 2017 15:14
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
[2017-07-26] MEDS: RESP: ALBUTEROL 2.5 MG/IPRATROPIUM 0.5 MG NEB (PRN) NEB (22:13)
[2017-07-27] VITALS (17 sets, daily range): BP systolic 132–150; BP diastolic 55–70; PULSE 76–106; RESP 20–21; TEMP 98.1–100.7; O2SAT 50–98
[2017-07-27] MEDS: PIPERACIL-TAZO 2.25 GM PREMIX 50 ML IV SCH ×3 (02:00→17:43)
[2017-07-27] MEDS: fentaNYL 2,500 MCG/NS 250 ML IV PRN ×2 (03:09→16:30)
[2017-07-27] MEDS: CHLORHEXIDINE GLUCONATE 2 % 1 PACK (2 CLOTHS) TOP SCH (04:00)
[2017-07-27 04:39] LABS: MEAN CORPUSCULAR HEMOGLOBIN 28.7 PG (27.0-34.0); MEAN CORPUSCULAR HGB CONC 32.6 % (32.0-36.0); MEAN PLATELET VOLUME 9.4 FL (7.0-11.0); PLATELET COUNT 527 TH/MM3 (150-450); RED BLOOD COUNT 2.23 MIL/MM3 (4.50-5.90); WHITE BLOOD COUNT 57.2 TH/MM3 (4.0-11.0)
[2017-07-27 04:45] LABS: HEMATOCRIT 19.7 % (39.0-51.0); HEMOGLOBIN 6.4 GM/DL (13.0-17.0)
[2017-07-27 05:05] LABS: BICARBONATE 27.5 MEQ/L (21.0-32.0); CREATININE 9.07 MG/DL (0.60-1.30)
[2017-07-27] MEDS: HEPARIN SODIUM - SQ 10,000 UNITS/ML VIAL SQ SCH ×3 (06:19→21:03)
[2017-07-27] MEDS: LINEZOLID 600 MG PREMIX 300 ML IV SCH ×2 (06:20→17:44)
[2017-07-27] MEDS: PANTOPRAZOLE SODIUM 40 MG VIAL IVP SCH (06:20)
[2017-07-27] MEDS: CHLORHEXIDINE 0.12% (ORAL KIT) 15 ML CUP MT SCH ×2 (08:00→20:00)
[2017-07-27 08:19] LABS: BANDS 2 % (0-6); CORRECTED NUCLEATED RBC 9 /100 WBC (0-0); LYMPHOCYTES 4 % (9-44); METAMYELOCYTES 10 % (0-1); MONOCYTES 5 % (0-8); MYELOCYTES 7 % (0-0); NEUTROPHIL # MANUAL DIFF 51.5 TH/MM3 (1.8-7.7); NUCLEATED RED BLOOD CELL 9 (0-0); POLYS (SEG NEUTROPHILS) 71 % (16-70)
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
[2017-07-27] MEDS: LACTULOSE SYRUP 20 GM/30 ML CUP PO SCH ×2 (09:00→21:03)
[2017-07-27] MEDS: ARTIFICIAL TEARS OPTH OINT 3.5 APPLIC/3.5 GM TUBO EACH EYE SCH ×2 (09:00→21:04)
[2017-07-27] MEDS: DOCUSATE SODIUM 100 MG/10 ML UDC PO SCH ×2 (09:27→21:03)
[2017-07-27] MEDS: MICAFUNGIN INJ 150 MG in SODIUM CHLORIDE 0.9% INJ 100 ML IV SCH (09:27)
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
[2017-07-27] MEDS ORDERED: VECURONIUM BROMIDE 10 MG VIAL IV PUSH SCH (10:00)
[2017-07-27] MEDS: QUEtiapine FUMARATE 25 MG TAB PO SCH ×2 (11:38→21:03)
[2017-07-27] MEDS: oxyCODONE HCL ORAL CONC 5 MG/0.25 ML SYRINGE PO SCH ×3 (11:38→21:03)
[2017-07-27] MEDS: SODIUM CHLORIDE 23.4% INJ 188 MEQ in SODIUM CHLOR 0.9% 1000 ML INJ 1,000 ML IV SCH (12:00)
[2017-07-27] MEDS: MIDAZOLAM 100 MG/NS 100 ML DRIP Premix IV PRN (12:21)
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
[2017-07-27 13:35] LABS: AMYLASE BODY FLUID 106 U/L; AMYLASE BODY FLUID TYPE PLEURAL
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
[2017-07-27] MEDS ORDERED: fentaNYL CITRATE 250 MCG/5 ML AMP IV PUSH ONE (15:00)
--- NOTE | 2017-07-27 15:19 | PD.PROCEDR ---
Procedure Note Procedure Diagnosis: Respiratory failure, unable to wean Procedure: Flexible fiberoptic bronchoscopy for percutaneous tracheostomy guidance Operation: Timeout performed patient identified. Patient intubated oral tracheal route on mechanical ventilation controlled rate 20 usual ICU monitoring placed. Sedation with Versed and fentanyl infusions, rocuronium for neuromuscular paralysis. Through an indwelling side-port in the ventilatory circuit the bronchoscope was delivered into the tracheobronchial tree. There was mild inflammation throughout the main trachea. The major bronchi were clear. There were large amounts of thick white secretions in the right lower lobe bronchi, these were suctioned clear with saline irrigation. The bronchoscope and endotracheal tube were then withdrawn to the level of the cricoid cartilage. The cuff was left inflated. The bronchoscope was used for direct visualization of the percutaneous tracheostomy dictated under separate note. Following insertion of the percutaneous trach tube the location of the newly inserted trach was confirmed to be adequate by delivering the bronchoscope through the new trach tube. The elan was easily identified approximately 5 cm below the end of the tube. Ventilatory circuit was turned over to the new tracheostomy tube. Oxygen saturation was maintained at greater than 98% throughout the procedure. Rohith Wong MD July 27, 2017 15:19
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
--- NOTE | 2017-07-27 16:25 | RADRPT ---
EXAM DATE/TIME: 07/27/2017 15:41 [facility] COMPARISON: CT THORAX W/O CONTRAST, July 24, 2017, 11:42. CHEST SINGLE AP, July 26, 2017, 4:45. INDICATIONS : Post tracheostomy MEDICAL HISTORY : renal failure, respiratory failure SURGICAL HISTORY : Splenectomy. Appendectomy. femoral line ENCOUNTER: Subsequent ACUITY: 4 - 6 days PAIN SCORE: Non-responsive. LOCATION: Bilateral chest FINDINGS: 2 AP views of the chest demonstrate a normal-sized cardiac silhouette. Tracheostomy overlies the trac heal air shadow and nasogastric tube distal tip is in the stomach. Bilateral chest tubes are present and no pneumothorax is visualized. There is moderate size right and small left basilar pleural-parenc hymal opacities. This is stable on the right and slightly increased on the left with new obscuration of the medial left hemidiaphragm. CONCLUSION: 1. Tracheostomy in appropriate position without a pneumothorax visualized. Bilateral chest tubes mary in present. 2. Stable right pleural effusion with right lower lung zone airspace consolidation. 3. Slightly increased consolidation and/or atelectasis at the left lung base. Marvin Sandoval MD on July 27, 2017 at 16:21 Board Certified Radiologist. This report was verified electronically.
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
--- NOTE | 2017-07-27 19:04 | MP ---
cc: Agustina Hadley MD DATE OF OPERATION: 07/27/2017 DATE OF SURGERY: 07/27/2017 PREOPERATIVE DIAGNOSES: Respiratory failure, traumatic brain injury and renal failure. POSTOPERATIVE DIAGNOSES: Respiratory failure, traumatic brain injury and renal failure. PROCEDURE PERFORMED: Tracheostomy, blue Rhino and bronchoscopy and a right femoral dialysis Vas-Cath placement. SURGEON: Agustina Hadley MD ANESTHESIA: Local 1% Xylocaine plus sedation with Versed and fentanyl as patient is on the ventilator. DESCRIPTION OF PROCEDURE: The patient is prepared in the usual fashion. The tracheostomy is carried out first. The bronchoscopy was carried out by Dr. Wong from the top and then area is infiltrated with 1% Xylocaine over the midline just above the sternal notch, and a small vertical incision made with a 15 blade, deepened down with hemostats to the level of the trachea. With finger palpation, the level of second to third tracheal ring is detected and then Angiocath is placed into the trachea under vision with a bronchoscope. Through the Angiocath, the guidewire is placed. Over the guidewire, the punch dilator was placed, followed by the Blue Rhino dilator and an 8 Shiley cannula on the dilator. When the cannula is in place, it is connected to the ventilator, end tidal CO2 checked and cannula sutured in place with 2-0 nylon and secured with the band around the neck. The patient undergoes full bronchoscopy with evacuation of a large amount of secretions. The patient tolerated this part of the procedure well. Next, the patient is placed in the supine position and the area infiltrated with 1% Xylocaine in the right groin. Using SonoSite ultrasound, the femoral vein is detected and then a needle inserted into femoral vein. Through the needle, a J wire is placed. Over the J wire, successive dilators were placed and then a dilator with a sheath. Through the sheath, the Vas-Cath is inserted and sheath peeled off. Catheter sutured in place with 2-0 nylon and is ready for dialysis. The patient tolerated the procedure well. MD COURTNEY Muñoz/BERNARDINO , 06:47 PM , 07:02 PM
[2017-07-28] VITALS (18 sets, daily range): BP systolic 130–154; BP diastolic 40–85; PULSE 103–126; RESP 20–22; TEMP 98.8–101.2; O2SAT 92–100
[2017-07-28] MEDS: oxyCODONE HCL ORAL CONC 5 MG/0.25 ML SYRINGE PO SCH ×6 (00:30→20:19)
[2017-07-28] MEDS: PIPERACIL-TAZO 2.25 GM PREMIX 50 ML IV SCH ×3 (02:35→17:26)
[2017-07-28] MEDS: CHLORHEXIDINE GLUCONATE 2 % 1 PACK (2 CLOTHS) TOP SCH (04:00)
[2017-07-28 05:20] LABS: HEMOGLOBIN 8.7 GM/DL (13.0-17.0); MEAN CELL VOLUME 88.4 FL (80.0-100.0); MEAN CORPUSCULAR HEMOGLOBIN 29.5 PG (27.0-34.0); MEAN CORPUSCULAR HGB CONC 33.3 % (32.0-36.0); MEAN PLATELET VOLUME 9.6 FL (7.0-11.0); PLATELET COUNT 611 TH/MM3 (150-450); RED BLOOD COUNT 2.94 MIL/MM3 (4.50-5.90)
[2017-07-28 05:50] LABS: BICARBONATE 24.7 MEQ/L (21.0-32.0)
[2017-07-28 06:00] LABS: CREATININE 10.31 MG/DL (0.60-1.30)
[2017-07-28] MEDS: HEPARIN SODIUM - SQ 10,000 UNITS/ML VIAL SQ SCH ×3 (06:21→22:09)
[2017-07-28] MEDS: LINEZOLID 600 MG PREMIX 300 ML IV SCH ×2 (06:21→17:26)
[2017-07-28] MEDS: PANTOPRAZOLE SODIUM 40 MG VIAL IVP SCH (06:22)
[2017-07-28 06:46] LABS: BANDS 10 % (0-6); CORRECTED NUCLEATED RBC 4 /100 WBC (0-0); LYMPHOCYTES 3 % (9-44); METAMYELOCYTES 6 % (0-1); MONOCYTES 11 % (0-8); MYELOCYTES 4 % (0-0); NEUTROPHIL # MANUAL DIFF 43.9 TH/MM3 (1.8-7.7); NUCLEATED RED BLOOD CELL 4 (0-0); POLYS (SEG NEUTROPHILS) 66 % (16-70); TARGET CELLS 1+ (NORMAL)
[2017-07-28] MEDS: fentaNYL 2,500 MCG/NS 250 ML IV PRN (07:50)
[2017-07-28] MEDS: DOCUSATE SODIUM 100 MG/10 ML UDC PO SCH ×2 (08:53→20:19)
[2017-07-28] MEDS: LACTULOSE SYRUP 20 GM/30 ML CUP PO SCH ×2 (08:53→20:19)
[2017-07-28] MEDS: ARTIFICIAL TEARS OPTH OINT 3.5 APPLIC/3.5 GM TUBO EACH EYE SCH ×2 (09:00→20:19)
[2017-07-28] MEDS: QUEtiapine FUMARATE 25 MG TAB PO SCH ×2 (09:00→20:18)
[2017-07-28] MEDS: CHLORHEXIDINE 0.12% (ORAL KIT) 15 ML CUP MT SCH ×2 (09:00→20:19)
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
[2017-07-28] MEDS: MICAFUNGIN INJ 150 MG in SODIUM CHLORIDE 0.9% INJ 100 ML IV SCH (12:07)
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
--- NOTE | 2017-07-28 16:12 | RADRPT ---
EXAM DATE/TIME: 07/28/2017 15:05 [facility] COMPARISON: CT THORAX W/O CONTRAST, July 24, 2017, 11:42. INDICATIONS : Trauma, evaluate right effusion. RADIATION DOSE: 13.18 CTDIvol (mGy) MEDICAL HISTORY : Non-responsive. SURGICAL HISTORY : Non-responsive. ENCOUNTER: Subsequent ACUITY: 2 weeks PAIN SCALE: Non-responsive LOCATION: chest TECHNIQUE: Volumetric scanning of the chest was performed. Using automated exposure control and adjustment of t he mA and/or kV according to patient size, radiation dose was kept as low as reasonably achievable to obtain optimal diagnostic quality images. DICOM format image data is available electronically for r eview and comparison. Follow-up recommendations for detected pulmonary nodules are based at a minimum on nodule size and pa tient risk factors according to Fleischner Society Guidelines. FINDINGS: LUNGS: There continues to be scattered interstitial infiltrates throughout both lung rodrigues. The right-sided chest tube remains in place with no definite pneumothorax. There continues to be compressive atelect asis in the right lung base with a small to moderate residual pleural effusion. The left-sided chest tube has been removed. There is a small left pneumothorax remaining. There continues to be compressiv e atelectasis in the left lung base along with a small left-sided effusion. There is central lobar em physema. PLEURAE: Moderate Bilateral effusions MEDIASTINUM: The heart and great vessels demonstrate no acute abnormality. There is no mediastinal or hilar lymph adenopathy. AXILLAE: Within normal limits. No lymphadenopathy. MUSCULOSKELETAL: Within normal limits for patient age. MISCELLANEOUS: The visualized upper abdominal organs demonstrate no acute abnormality. CONCLUSION: 1. The previously noted left-sided chest tube is no longer in place. There is a residual small left p neumothorax. 2. There continue to be moderate bilateral pleural effusions. 3. There continues to be scattered interstitial infiltrates throughout both lung rodrigues. 4. Right chest tube remains in place with no evidence of pneumothorax. 5. There continues to be compressive atelectasis in both lung bases, right greater than left. . Pop Damon MD on July 28, 2017 at 16:06 Board Certified Radiologist. This report was verified electronically.
[2017-07-28] MEDS: SODIUM CHLORIDE 23.4% INJ 188 MEQ in SODIUM CHLOR 0.9% 1000 ML INJ 1,000 ML IV SCH (16:29)
[2017-07-28] MEDS: ACETAMINOPHEN 1000 MG/100 ML 100 ML IV PRN (20:20)
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
[2017-07-29] VITALS (18 sets, daily range): BP systolic 128–165; BP diastolic 40–62; PULSE 102–117; RESP 20–22; TEMP 99.7–100.7; O2SAT 95–100
[2017-07-29] MEDS: PIPERACIL-TAZO 2.25 GM PREMIX 50 ML IV SCH ×2 (01:08→09:52)
[2017-07-29] MEDS: oxyCODONE HCL ORAL CONC 5 MG/0.25 ML SYRINGE PO SCH ×5 (01:08→15:49)
[2017-07-29] MEDS: CHLORHEXIDINE GLUCONATE 2 % 1 PACK (2 CLOTHS) TOP SCH (04:00)
[2017-07-29] MEDS: LINEZOLID 600 MG PREMIX 300 ML IV SCH (05:33)
[2017-07-29] MEDS: HEPARIN SODIUM - SQ 10,000 UNITS/ML VIAL SQ SCH ×2 (05:33→15:47)
[2017-07-29] MEDS: PANTOPRAZOLE SODIUM 40 MG VIAL IVP SCH (05:33)
[2017-07-29 05:35] LABS: HEMATOCRIT 25.8 % (39.0-51.0); HEMOGLOBIN 8.4 GM/DL (13.0-17.0); MEAN CELL VOLUME 88.5 FL (80.0-100.0); MEAN CORPUSCULAR HGB CONC 32.8 % (32.0-36.0); MEAN PLATELET VOLUME 9.6 FL (7.0-11.0); PLATELET COUNT 714 TH/MM3 (150-450); RED BLOOD COUNT 2.91 MIL/MM3 (4.50-5.90); RED CELL DISTRIBUTION WIDTH 16.1 % (11.6-17.2); WHITE BLOOD COUNT 57.7 TH/MM3 (4.0-11.0)
[2017-07-29 06:04] LABS: ALKALINE PHOSPHATASE 178 U/L (45-117); ALT (GPT) 86 U/L (12-78); AST (GOT) 101 U/L (15-37); BICARBONATE 26.7 MEQ/L (21.0-32.0); BLOOD UREA NITROGEN 94 MG/DL (7-18); CALCIUM 8.3 MG/DL (8.5-10.1); CHLORIDE 102 MEQ/L (98-107); CREATININE 8.64 MG/DL (0.60-1.30); GLOMERULAR FILTRATION RATE 8 ML/MIN (>89); GLUCOSE,RANDOM 125 MG/DL (74-106); PHOSPHORUS 6.7 MG/DL (2.5-4.9); SODIUM (NA) 142 MEQ/L (136-145); TOTAL BILIRUBIN ADULT 1.4 MG/DL (0.2-1.0); TOTAL PROTEIN 6.6 GM/DL (6.4-8.2)
--- NOTE | 2017-07-29 06:23 | RADRPT ---
EXAM DATE/TIME: 07/29/2017 05:02 [place] COMPARISON: CHEST SINGLE AP, July 27, 2017, 15:41. INDICATIONS : Short of breath. MEDICAL HISTORY : Renal failure, respiratory failure. SURGICAL HISTORY : Splenectomy. Appendectomy. ENCOUNTER: Subsequent ACUITY: 1 week PAIN SCORE: Non-responsive. LOCATION: Bilateral chest FINDINGS: A single view of the chest demonstrates persistent bibasilar airspace disease. Left-sided thoracostom y tube has been removed. No pneumothorax. Right thoracostomy tube is stable in position. Tracheostomy and nasogastric tubes are unchanged as well. Heart size is normal. Osseous structures are intact. CONCLUSION: 1. Persistent bibasilar airspace disease. 2. Left-sided thoracostomy tube has been removed. Right thoracostomy tube is unchanged in position. N o pneumothorax Alexandro Arias MD on July 29, 2017 at 6:20 Board Certified Radiologist. This report was verified electronically.
[2017-07-29] MEDS: QUEtiapine FUMARATE 25 MG TAB PO SCH (08:30)
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
[2017-07-29] MEDS: CHLORHEXIDINE 0.12% (ORAL KIT) 15 ML CUP MT SCH ×2 (08:33→20:25)
[2017-07-29 08:53] LABS: BANDS 13 % (0-6); CORRECTED NUCLEATED RBC 2 /100 WBC (0-0); LYMPHOCYTES 5 % (9-44); METAMYELOCYTES 5 % (0-1); MONOCYTES 3 % (0-8); MYELOCYTES 12 % (0-0); NEUTROPHIL # MANUAL DIFF 53.1 TH/MM3 (1.8-7.7); NUCLEATED RED BLOOD CELL 2 (0-0); POLYS (SEG NEUTROPHILS) 59 % (16-70); PROMYELOCYTES 3 % (0-0)
[2017-07-29 08:55] LABS: TARGET CELLS 1+ (NORMAL)
[2017-07-29] MEDS: LACTULOSE SYRUP 20 GM/30 ML CUP PO SCH ×2 (09:00→20:26)
[2017-07-29] MEDS: ARTIFICIAL TEARS OPTH OINT 3.5 APPLIC/3.5 GM TUBO EACH EYE SCH ×2 (09:00→20:26)
[2017-07-29] MEDS: DOCUSATE SODIUM 100 MG/10 ML UDC PO SCH ×2 (09:00→20:26)
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
[2017-07-29] MEDS: METOPROLOL TARTRATE 25 MG TAB PO SCH ×2 (11:30→20:26)
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
[2017-07-29] MEDS: SODIUM CHLORIDE 23.4% INJ 188 MEQ in SODIUM CHLOR 0.9% 1000 ML INJ 1,000 ML IV SCH (12:43)
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
[2017-07-29] MEDS: cefTRIAXone INJ 2,000 MG in SODIUM CHLORIDE 0.9% INJ 100 ML IV SCH (15:43)
[2017-07-29] MEDS: metroNIDAZOLE 500 MG TAB PO SCH ×2 (15:47→21:21)
[2017-07-29] MEDS: SODIUM CHLORIDE 1 GRAM TAB PO SCH ×2 (15:47→21:21)
[2017-07-30] VITALS (19 sets, daily range): BP systolic 135–157; BP diastolic 53–65; PULSE 10–122; RESP 20–25; TEMP 98.2–100.9; O2SAT 92–100
[2017-07-30] MEDS: ACETAMINOPHEN 1000 MG/100 ML 100 ML IV PRN (02:45)
[2017-07-30] MEDS: hydrALAZINE HCL 20 MG/ML VIAL IV PUSH PRN ×2 (03:00→15:45)
[2017-07-30] MEDS: CHLORHEXIDINE GLUCONATE 2 % 1 PACK (2 CLOTHS) TOP SCH (03:30)
[2017-07-30] MEDS: metroNIDAZOLE 500 MG TAB PO SCH ×3 (05:40→21:15)
[2017-07-30] MEDS: SODIUM CHLORIDE 1 GRAM TAB PO SCH ×3 (05:40→21:15)
[2017-07-30] MEDS: PANTOPRAZOLE SODIUM 40 MG VIAL IVP SCH (05:40)
[2017-07-30 06:21] LABS: AUTOMATED NEUTROPHIL # 48.4 TH/MM3 (1.8-7.7); BASOPHIL # 0.2 TH/MM3 (0-0.2); BASOPHIL % 0.4 % (0.0-2.0); EOSINOPHIL # 0.5 TH/MM3 (0-0.4); EOSINOPHIL % 0.8 % (0.0-4.0); HEMATOCRIT 25.6 % (39.0-51.0); HEMOGLOBIN 8.4 GM/DL (13.0-17.0); LYMPH % 2.9 % (9.0-44.0); LYMPHOCYTE # 1.5 TH/MM3 (1.0-4.8); MEAN CELL VOLUME 89.9 FL (80.0-100.0); MEAN CORPUSCULAR HEMOGLOBIN 29.5 PG (27.0-34.0); MEAN CORPUSCULAR HGB CONC 32.8 % (32.0-36.0); MEAN PLATELET VOLUME 9.7 FL (7.0-11.0); MONO % 5.8 % (0.0-8.0); MONOCYTE # 3.1 TH/MM3 (0-0.9); NEUT % 90.1 % (16.0-70.0); PLATELET COUNT 793 TH/MM3 (150-450); RED BLOOD COUNT 2.84 MIL/MM3 (4.50-5.90); RED CELL DISTRIBUTION WIDTH 16.2 % (11.6-17.2); WHITE BLOOD COUNT 53.7 TH/MM3 (4.0-11.0)
[2017-07-30 07:08] LABS: CALCIUM 8.5 MG/DL (8.5-10.1)
[2017-07-30 07:34] LABS: CREATININE 10.28 MG/DL (0.60-1.30)
[2017-07-30] MEDS: LACTULOSE SYRUP 20 GM/30 ML CUP PO SCH ×2 (08:03→21:15)
[2017-07-30] MEDS: DOCUSATE SODIUM 100 MG/10 ML UDC PO SCH ×2 (08:03→21:15)
[2017-07-30 08:13] LABS: BANDS 6 % (0-6); LYMPHOCYTES 3 % (9-44); METAMYELOCYTES 6 % (0-1); MONOCYTES 3 % (0-8); MYELOCYTES 10 % (0-0); NEUTROPHIL # MANUAL DIFF 49.9 TH/MM3 (1.8-7.7); POLYS (SEG NEUTROPHILS) 71 % (16-70)
[2017-07-30 08:14] LABS: TARGET CELLS 1+ (NORMAL)
[2017-07-30 08:15] LABS: TOXIC GRANULATION 1+ (NORMAL)
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
[2017-07-30] MEDS: ARTIFICIAL TEARS OPTH OINT 3.5 APPLIC/3.5 GM TUBO EACH EYE SCH ×2 (09:34→21:00)
[2017-07-30] MEDS: CHLORHEXIDINE 0.12% (ORAL KIT) 15 ML CUP MT SCH ×2 (09:34→19:56)
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
[2017-07-30] MEDS: HEPARIN SODIUM - IV 10,000 UNITS/10 ML VIAL PRN (12:25)
[2017-07-30] MEDS: SODIUM CHLOR 0.9% 1000 ML INJ 1,000 ML OTHER PRN (12:25)
[2017-07-30] MEDS: GENTAMICIN SULFATE 20 MG/2 ML VIAL OTHER PRN (12:25)
[2017-07-30] MEDS: METOPROLOL TARTRATE 25 MG TAB PO SCH ×2 (13:06→21:15)
[2017-07-30] MEDS: AMANTADINE HCL SOLN 100 MG/10 ML UDC PO SCH (13:06)
[2017-07-30] MEDS: SODIUM CHLORIDE 23.4% INJ 188 MEQ in SODIUM CHLOR 0.9% 1000 ML INJ 1,000 ML IV SCH (13:07)
[2017-07-30] MEDS: cefTRIAXone INJ 2,000 MG in SODIUM CHLORIDE 0.9% INJ 100 ML IV SCH (13:10)
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
[2017-07-31] VITALS (17 sets, daily range): BP systolic 144–157; BP diastolic 56–78; PULSE 112–124; RESP 20–24; TEMP 99.4–100.5; O2SAT 93–100
[2017-07-31] MEDS: hydrALAZINE HCL 20 MG/ML VIAL IV PUSH PRN ×2 (02:54→16:35)
[2017-07-31] MEDS: CHLORHEXIDINE GLUCONATE 2 % 1 PACK (2 CLOTHS) TOP SCH (04:00)
[2017-07-31 04:50] LABS: HEMATOCRIT 26.1 % (39.0-51.0); HEMOGLOBIN 8.3 GM/DL (13.0-17.0); MEAN CELL VOLUME 90.4 FL (80.0-100.0); MEAN CORPUSCULAR HEMOGLOBIN 28.9 PG (27.0-34.0); MEAN CORPUSCULAR HGB CONC 31.9 % (32.0-36.0); MEAN PLATELET VOLUME 9.5 FL (7.0-11.0); PLATELET COUNT 900 TH/MM3 (150-450); RED BLOOD COUNT 2.89 MIL/MM3 (4.50-5.90); RED CELL DISTRIBUTION WIDTH 16.7 % (11.6-17.2); WHITE BLOOD COUNT 51.6 TH/MM3 (4.0-11.0)
[2017-07-31 05:32] LABS: BANDS 4 % (0-6); BASOPHILS 2 % (0-2); LYMPHOCYTES 8 % (9-44); METAMYELOCYTES 6 % (0-1); MONOCYTES 3 % (0-8); NEUTROPHIL # MANUAL DIFF 44.4 TH/MM3 (1.8-7.7); POLYS (SEG NEUTROPHILS) 75 % (16-70); PROMYELOCYTES 1 % (0-0)
[2017-07-31 05:36] LABS: BICARBONATE 25.1 MEQ/L (21.0-32.0); CALCIUM 8.3 MG/DL (8.5-10.1); CREATININE 9.01 MG/DL (0.60-1.30)
[2017-07-31] MEDS: AMANTADINE HCL SOLN 100 MG/10 ML UDC PO SCH ×2 (06:28→12:12)
[2017-07-31] MEDS: SODIUM CHLORIDE 1 GRAM TAB PO SCH ×3 (06:28→21:25)
[2017-07-31] MEDS: PANTOPRAZOLE SODIUM 40 MG VIAL IVP SCH (06:28)
[2017-07-31] MEDS: metroNIDAZOLE 500 MG TAB PO SCH ×3 (06:28→21:25)
[2017-07-31] MEDS: CHLORHEXIDINE 0.12% (ORAL KIT) 15 ML CUP MT SCH ×2 (08:00→20:09)
--- NOTE | 2017-07-31 08:16 | RADRPT ---
EXAM DATE/TIME: 07/31/2017 07:47 [facility] COMPARISON: CHEST SINGLE AP, July 29, 2017, 5:02. INDICATIONS : Respiratory diseases MEDICAL HISTORY : Renal failure, respiratory failure. SURGICAL HISTORY : Splenectomy. Appendectomy. ENCOUNTER: Subsequent ACUITY: 2 weeks PAIN SCORE: Non-responsive. LOCATION: Bilateral chest FINDINGS: 2 AP views of the chest demonstrate normal-sized cardiac silhouette. Tracheostomy and nasogastric tub e remain present. Large bore right chest tube remains present in the mid right hemithorax. No pneumot horax is visualized. There is stable bibasilar pleural-parenchymal opacity. Bones demonstrate no acut e finding. CONCLUSION: 1. Stable chest x-ray with bilateral pleural effusions with associated atelectasis and/or airspace co nsolidation. 2. Right chest tube remains present and no pneumothorax is visualized. Marvin Sandoval MD on July 31, 2017 at 8:13 Board Certified Radiologist. This report was verified electronically.
[2017-07-31] MEDS: LACTULOSE SYRUP 20 GM/30 ML CUP PO SCH (09:00)
[2017-07-31] MEDS: ARTIFICIAL TEARS OPTH OINT 3.5 APPLIC/3.5 GM TUBO EACH EYE SCH ×2 (09:00→21:00)
[2017-07-31] MEDS: DOCUSATE SODIUM 100 MG/10 ML UDC PO SCH ×2 (09:00→21:24)
[2017-07-31] MEDS: METOPROLOL TARTRATE 25 MG TAB PO SCH ×2 (09:23→21:24)
[2017-07-31] MEDS: ACETAMINOPHEN 325 MG TAB PO PRN (09:23)
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
[2017-07-31] MEDS: cefTRIAXone INJ 2,000 MG in SODIUM CHLORIDE 0.9% INJ 100 ML IV SCH (14:21)
[2017-07-31] MEDS: HEPARIN SODIUM - SQ 10,000 UNITS/ML VIAL SQ SCH ×2 (14:21→21:25)
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
[2017-07-31] MEDS: FUROSEMIDE 40 MG/4 ML VIAL IV PUSH SCH (17:10)
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
[2017-08-01] VITALS (13 sets, daily range): BP systolic 144–153; BP diastolic 68–75; PULSE 108–122; RESP 20–25; TEMP 99.5–101; O2SAT 94–98
[2017-08-01] MEDS: CHLORHEXIDINE GLUCONATE 2 % 1 PACK (2 CLOTHS) TOP SCH (03:39)
[2017-08-01 04:51] LABS: AUTOMATED NEUTROPHIL # 35.6 TH/MM3 (1.8-7.7); BASOPHIL # 0.2 TH/MM3 (0-0.2); BASOPHIL % 0.5 % (0.0-2.0); EOSINOPHIL # 0.6 TH/MM3 (0-0.4); EOSINOPHIL % 1.4 % (0.0-4.0); HEMATOCRIT 25.1 % (39.0-51.0); HEMOGLOBIN 8.1 GM/DL (13.0-17.0); LYMPH % 4.2 % (9.0-44.0); LYMPHOCYTE # 1.8 TH/MM3 (1.0-4.8); MEAN CELL VOLUME 92.1 FL (80.0-100.0); MEAN CORPUSCULAR HEMOGLOBIN 29.6 PG (27.0-34.0); MEAN CORPUSCULAR HGB CONC 32.1 % (32.0-36.0); MEAN PLATELET VOLUME 9.6 FL (7.0-11.0); MONO % 10.5 % (0.0-8.0); MONOCYTE # 4.5 TH/MM3 (0-0.9); NEUT % 83.4 % (16.0-70.0); PLATELET COUNT 868 TH/MM3 (150-450); RED BLOOD COUNT 2.73 MIL/MM3 (4.50-5.90); RED CELL DISTRIBUTION WIDTH 17.1 % (11.6-17.2); WHITE BLOOD COUNT 42.7 TH/MM3 (4.0-11.0)
[2017-08-01 05:04] LABS: BICARBONATE 24.8 MEQ/L (21.0-32.0); CALCIUM 8.4 MG/DL (8.5-10.1)
[2017-08-01 05:10] LABS: CREATININE 10.78 MG/DL (0.60-1.30)
[2017-08-01 06:03] LABS: BANDS 3 % (0-6); LYMPHOCYTES 6 % (9-44); METAMYELOCYTES 3 % (0-1); MONOCYTES 1 % (0-8); MYELOCYTES 3 % (0-0); NEUTROPHIL # MANUAL DIFF 38.9 TH/MM3 (1.8-7.7); POLYS (SEG NEUTROPHILS) 82 % (16-70)
[2017-08-01 06:04] LABS: TARGET CELLS 1+ (NORMAL)
[2017-08-01 06:05] LABS: SPHEROCYTES 1+ (NORMAL)
[2017-08-01] MEDS: HEPARIN SODIUM - SQ 10,000 UNITS/ML VIAL SQ SCH ×3 (06:38→21:10)
[2017-08-01] MEDS: metroNIDAZOLE 500 MG TAB PO SCH ×3 (06:38→21:12)
[2017-08-01] MEDS: SODIUM CHLORIDE 1 GRAM TAB PO SCH ×3 (06:38→21:11)
[2017-08-01] MEDS: AMANTADINE HCL SOLN 100 MG/10 ML UDC PO SCH ×2 (06:38→12:23)
[2017-08-01] MEDS: PANTOPRAZOLE SODIUM 40 MG VIAL IVP SCH (06:38)
[2017-08-01] MEDS: CHLORHEXIDINE 0.12% (ORAL KIT) 15 ML CUP MT SCH ×2 (08:00→20:03)
[2017-08-01] MEDS: RESP: ALBUTEROL 2.5 MG/IPRATROPIUM 0.5 MG NEB (PRN) NEB ×4 (08:06→23:08)
[2017-08-01] MEDS: FUROSEMIDE 40 MG/4 ML VIAL IV PUSH SCH ×2 (08:27→17:41)
[2017-08-01] MEDS: ARTIFICIAL TEARS OPTH OINT 3.5 APPLIC/3.5 GM TUBO EACH EYE SCH ×2 (08:27→21:12)
[2017-08-01] MEDS: METOPROLOL TARTRATE 25 MG TAB PO SCH ×2 (08:27→21:12)
[2017-08-01] MEDS: DOCUSATE SODIUM 100 MG/10 ML UDC PO SCH ×2 (08:27→21:13)
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
[2017-08-01] MEDS: hydrALAZINE HCL 20 MG/ML VIAL IV PUSH PRN (12:40)
[2017-08-01] MEDS: cefTRIAXone INJ 2,000 MG in SODIUM CHLORIDE 0.9% INJ 100 ML IV SCH (14:45)
[2017-08-01] MEDS ORDERED: SODIUM POLYSTYRENE SULFONATE SUSP 15 GM/60 ML CUP PO ONE (15:30)
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
[2017-08-01] MEDS: ACETAMINOPHEN 325 MG TAB PO PRN (16:12)
[2017-08-02] VITALS (18 sets, daily range): BP systolic 132–152; BP diastolic 62–74; PULSE 102–118; RESP 19–22; TEMP 99.4–101.5; O2SAT 90–99
[2017-08-02] MEDS: CHLORHEXIDINE GLUCONATE 2 % 1 PACK (2 CLOTHS) TOP SCH (04:00)
[2017-08-02] MEDS: RESP: ALBUTEROL 2.5 MG/IPRATROPIUM 0.5 MG NEB (PRN) NEB ×4 (04:20→21:12)
[2017-08-02 04:44] LABS: AUTOMATED NEUTROPHIL # 27.1 TH/MM3 (1.8-7.7); BASOPHIL # 0.4 TH/MM3 (0-0.2); BASOPHIL % 1.1 % (0.0-2.0); EOSINOPHIL # 0.5 TH/MM3 (0-0.4); EOSINOPHIL % 1.6 % (0.0-4.0); HEMATOCRIT 23.8 % (39.0-51.0); HEMOGLOBIN 7.7 GM/DL (13.0-17.0); LYMPH % 5.2 % (9.0-44.0); LYMPHOCYTE # 1.8 TH/MM3 (1.0-4.8); MEAN CELL VOLUME 92.8 FL (80.0-100.0); MEAN CORPUSCULAR HEMOGLOBIN 30.2 PG (27.0-34.0); MEAN CORPUSCULAR HGB CONC 32.5 % (32.0-36.0); MEAN PLATELET VOLUME 8.9 FL (7.0-11.0); MONO % 12.1 % (0.0-8.0); MONOCYTE # 4.1 TH/MM3 (0-0.9); PLATELET COUNT 903 TH/MM3 (150-450); RED BLOOD COUNT 2.57 MIL/MM3 (4.50-5.90); RED CELL DISTRIBUTION WIDTH 17.8 % (11.6-17.2); WHITE BLOOD COUNT 33.9 TH/MM3 (4.0-11.0)
[2017-08-02 05:35] LABS: ALKALINE PHOSPHATASE 132 U/L (45-117); ALT (GPT) 70 U/L (12-78); AST (GOT) 80 U/L (15-37); BICARBONATE 22.2 MEQ/L (21.0-32.0); CALCIUM 8.2 MG/DL (8.5-10.1); CHLORIDE 104 MEQ/L (98-107); CREATININE 12.88 MG/DL (0.60-1.30); GLOMERULAR FILTRATION RATE 5 ML/MIN (>89); GLUCOSE,RANDOM 108 MG/DL (74-106); SODIUM (NA) 145 MEQ/L (136-145); TOTAL BILIRUBIN ADULT 0.6 MG/DL (0.2-1.0); TOTAL PROTEIN 7.2 GM/DL (6.4-8.2)
[2017-08-02 05:46] LABS: BLOOD UREA NITROGEN 158 MG/DL (7-18)
[2017-08-02] MEDS: metroNIDAZOLE 500 MG TAB PO SCH ×3 (06:02→22:11)
[2017-08-02] MEDS: HEPARIN SODIUM - SQ 10,000 UNITS/ML VIAL SQ SCH ×3 (06:02→22:11)
[2017-08-02] MEDS: PANTOPRAZOLE SODIUM 40 MG VIAL IVP SCH (06:02)
[2017-08-02] MEDS: SODIUM CHLORIDE 1 GRAM TAB PO SCH ×3 (06:03→22:15)
[2017-08-02] MEDS: AMANTADINE HCL SOLN 100 MG/10 ML UDC PO SCH ×2 (06:03→12:04)
[2017-08-02 07:09] LABS: BASOPHILS 1 % (0-2); LYMPHOCYTES 6 % (9-44); METAMYELOCYTES 2 % (0-1); MONOCYTES 13 % (0-8); MYELOCYTES 2 % (0-0); NEUTROPHIL # MANUAL DIFF 27.1 TH/MM3 (1.8-7.7); POLYS (SEG NEUTROPHILS) 76 % (16-70); TARGET CELLS 1+ (NORMAL)
[2017-08-02] MEDS: CHLORHEXIDINE 0.12% (ORAL KIT) 15 ML CUP MT SCH ×2 (08:14→19:56)
[2017-08-02] MEDS: METOPROLOL TARTRATE 25 MG TAB PO SCH (08:23)
[2017-08-02] MEDS: DOCUSATE SODIUM 100 MG/10 ML UDC PO SCH ×2 (08:23→19:55)
[2017-08-02] MEDS: ARTIFICIAL TEARS OPTH OINT 3.5 APPLIC/3.5 GM TUBO EACH EYE SCH ×2 (08:23→19:55)
[2017-08-02] MEDS: FUROSEMIDE 40 MG/4 ML VIAL IV PUSH SCH ×2 (08:23→17:50)
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
[2017-08-02] MEDS: PROPRANOLOL HCL 10 MG TAB PO SCH ×2 (11:00→18:31)
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
[2017-08-02] MEDS: cefTRIAXone INJ 2,000 MG in SODIUM CHLORIDE 0.9% INJ 100 ML IV SCH (13:59)
[2017-08-02] MEDS: ACETAMINOPHEN 325 MG TAB PO PRN (15:17)
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
[2017-08-02] MEDS: LINEZOLID 600 MG PREMIX 300 ML IV SCH (19:55)
[2017-08-02] MEDS ORDERED: CEFEPIME INJ 1,000 MG in SODIUM CHLORIDE 0.9% INJ 100 ML IV SCH (20:00)
[2017-08-02] MEDS: CEFEPIME 1000 MG/NS 100 ML IV SCH ×2 (20:34)
[2017-08-02] MEDS: MICAFUNGIN INJ 100 MG in SODIUM CHLORIDE 0.9% INJ 100 ML IV SCH (22:11)
[2017-08-03] VITALS (19 sets, daily range): BP systolic 125–168; BP diastolic 58–84; PULSE 90–104; RESP 16–18; TEMP 98–99.5; O2SAT 97–100
[2017-08-03] MEDS: CHLORHEXIDINE GLUCONATE 2 % 1 PACK (2 CLOTHS) TOP SCH (02:55)
[2017-08-03] MEDS: PROPRANOLOL HCL 10 MG TAB PO SCH ×3 (03:17→18:40)
[2017-08-03] MEDS: RESP: ALBUTEROL 2.5 MG/IPRATROPIUM 0.5 MG NEB (PRN) NEB ×2 (03:40→23:43)
[2017-08-03] MEDS: SODIUM CHLORIDE 1 GRAM TAB PO SCH ×3 (05:49→22:13)
[2017-08-03] MEDS: AMANTADINE HCL SOLN 100 MG/10 ML UDC PO SCH ×2 (05:57→12:53)
[2017-08-03] MEDS: metroNIDAZOLE 500 MG TAB PO SCH ×3 (05:57→22:13)
[2017-08-03] MEDS: HEPARIN SODIUM - SQ 10,000 UNITS/ML VIAL SQ SCH ×3 (05:57→22:13)
[2017-08-03] MEDS: PANTOPRAZOLE SODIUM 40 MG VIAL IVP SCH (05:57)
[2017-08-03 06:20] LABS: AUTOMATED NEUTROPHIL # 28.6 TH/MM3 (1.8-7.7); BASOPHIL # 0.3 TH/MM3 (0-0.2); BASOPHIL % 0.8 % (0.0-2.0); EOSINOPHIL # 0.6 TH/MM3 (0-0.4); EOSINOPHIL % 1.7 % (0.0-4.0); HEMATOCRIT 24.8 % (39.0-51.0); HEMOGLOBIN 7.9 GM/DL (13.0-17.0); LYMPH % 5.3 % (9.0-44.0); LYMPHOCYTE # 1.9 TH/MM3 (1.0-4.8); MEAN CELL VOLUME 93.6 FL (80.0-100.0); MEAN CORPUSCULAR HEMOGLOBIN 29.8 PG (27.0-34.0); MEAN CORPUSCULAR HGB CONC 31.9 % (32.0-36.0); MEAN PLATELET VOLUME 9.2 FL (7.0-11.0); MONO % 11.8 % (0.0-8.0); MONOCYTE # 4.2 TH/MM3 (0-0.9); NEUT % 80.4 % (16.0-70.0); PLATELET COUNT 844 TH/MM3 (150-450); RED BLOOD COUNT 2.65 MIL/MM3 (4.50-5.90); RED CELL DISTRIBUTION WIDTH 18.4 % (11.6-17.2); WHITE BLOOD COUNT 35.6 TH/MM3 (4.0-11.0)
[2017-08-03 06:55] LABS: ALKALINE PHOSPHATASE 145 U/L (45-117); ALT (GPT) 63 U/L (12-78); AST (GOT) 67 U/L (15-37); BICARBONATE 24.2 MEQ/L (21.0-32.0); BLOOD UREA NITROGEN 135 MG/DL (7-18); CALCIUM 8.2 MG/DL (8.5-10.1); CHLORIDE 101 MEQ/L (98-107); GLOMERULAR FILTRATION RATE 6 ML/MIN (>89); GLUCOSE,RANDOM 104 MG/DL (74-106); SODIUM (NA) 143 MEQ/L (136-145); TOTAL BILIRUBIN ADULT 0.6 MG/DL (0.2-1.0)
[2017-08-03 06:57] LABS: CREATININE 10.42 MG/DL (0.60-1.30)
[2017-08-03 07:16] LABS: PHOSPHORUS 11.6 MG/DL (2.5-4.9)
[2017-08-03] MEDS: LINEZOLID 600 MG PREMIX 300 ML IV SCH ×2 (07:37→19:57)
[2017-08-03] MEDS: FUROSEMIDE 40 MG/4 ML VIAL IV PUSH SCH ×2 (07:37→17:34)
[2017-08-03] MEDS: DOCUSATE SODIUM 100 MG/10 ML UDC PO SCH ×2 (07:37→19:26)
[2017-08-03] MEDS: CHLORHEXIDINE 0.12% (ORAL KIT) 15 ML CUP MT SCH ×2 (07:37→19:57)
[2017-08-03] MEDS: ARTIFICIAL TEARS OPTH OINT 3.5 APPLIC/3.5 GM TUBO EACH EYE SCH ×2 (07:38→19:57)
[2017-08-03 08:19] LABS: BANDS 4 % (0-6); BASOPHILS 1 % (0-2); LYMPHOCYTES 7 % (9-44); METAMYELOCYTES 1 % (0-1); MONOCYTES 4 % (0-8); MYELOCYTES 2 % (0-0); NEUTROPHIL # MANUAL DIFF 30.6 TH/MM3 (1.8-7.7); POLYS (SEG NEUTROPHILS) 79 % (16-70)
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
--- NOTE | 2017-08-03 10:03 | RADRPT ---
EXAM DATE/TIME: 08/03/2017 09:17 [place] COMPARISON: CHEST SINGLE AP, July 27, 2017, 15:41. CHEST SINGLE AP, July 29, 2017, 5:02. CHEST SINGLE AP, July 31, 2017, 7:47. INDICATIONS : Trauma MEDICAL HISTORY : Renal failure, acute. respiratory failure SURGICAL HISTORY : Splenectomy. Appendectomy. ENCOUNTER: Initial ACUITY: 2 weeks PAIN SCORE: Non-responsive. LOCATION: Bilateral chest FINDINGS: A single view of the chest demonstrates persistent bilateral airspace disease with associated effusio ns. Accounting for changes in technique, since no significant interval change. Right-sided thoracosto my tube has been removed. I do not see a pneumothorax on the right., There appears to be a recurrent pneumothorax on the left measuring approximately 2.9 cm at the apex and 1.5 cm laterally. Heart size remains normal. Tracheostomy tube and nasogastric tubes are unchanged in position. Osseous structures are grossly intact. CONCLUSION: 1. Recurrent left-sided pneumothorax measuring approximately 2.9 cm and the apex. 2. Interval removal of a right-sided thoracostomy tube. No pneumothorax on the right. 3. Persistent bilateral airspace disease and associated effusion, unchanged. Alexandro Arias MD on August 03, 2017 at 9:53 Board Certified Radiologist. This report was verified electronically.
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
--- NOTE | 2017-08-03 11:54 | PD.RAD ---
Post Procedure Progress Note Pre Procedure Diagnosis: (1) Pneumothorax on left (2) Hemothorax on left Post Procedure Diagnosis: (1) Pneumothorax on left (2) Hemothorax on left Procedure Date: August 03, 2017 Supervising Radiologist: Alexandro Arias Proceduralist/Assist: Ora Ly, RT(R)(CV), Sarmad Loredo RT(R) Anesthesia: Local Plan of Activity Patient to Unit: Other (CT) Patient Condition: Poor See PACS Report for procedural detail/treatment Drainage Procedure Procedure 1 Imaging Guidance: Fluoroscopy Side: Left Procedure Type: Chest Tube Non-Tunneled Procedure: Placement [place]: 10 Drainage: Pleurovac (40 cmH2O) Fluid Removal (CCs): 350 Fluid Description: Clear, Yellow, Red Alexandro Arias MD August 03, 2017 11:54
--- NOTE | 2017-08-03 12:34 | RADRPT ---
EXAM DATE/TIME: 08/03/2017 12:24 [place] COMPARISON: CHEST SINGLE AP, August 03, 2017, 9:17. INDICATIONS : S/P chest tube placement. MEDICAL HISTORY : Renal failure, chronic. CSP fractures SURGICAL HISTORY : Splenectomy. ENCOUNTER: Subsequent ACUITY: 3 weeks PAIN SCORE: Non-responsive. LOCATION: Bilateral chest FINDINGS: There has been interval placement of left apical pigtail thoracostomy tube which is in good position. Pneumothorax is resolved. Tracheostomy and nasogastric tube are stable in position. Diffuse bilatera l interstitial and alveolar parenchymal opacities are unchanged. Cardiomediastinal contours are stabl e. CONCLUSION: Left thoracostomy tube in good position with resolution of pneumothorax. Marvin Bean MD on August 03, 2017 at 12:31 Board Certified Radiologist. This report was verified electronically.
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
--- NOTE | 2017-08-03 12:53 | RADRPT ---
EXAM DATE/TIME: 08/03/2017 12:12 [facility] COMPARISON: CHEST EXPIRATION ONLY, August 03, 2017, 12:24. CT ABDOMEN & PELVIS W/O CONTRAST, July 24, 2017, 11:42. INDICATIONS : Recent splenectomy now has elavated white blood count. ORAL CONTRAST: No oral contrast ingested. RADIATION DOSE: 10.53 CTDIvol (mGy) MEDICAL HISTORY : None SURGICAL HISTORY : Splenectomy. ENCOUNTER: Initial ACUITY: 1 day PAIN SCALE: Non-responsive LOCATION: Abdomen TECHNIQUE: Volumetric scanning of the abdomen and pelvis was performed. Using automated exposure control and ad justment of the mA and/or kV according to patient size, radiation dose was kept as low as reasonably achievable to obtain optimal diagnostic quality images. DICOM format image data is available electro nically for review and comparison. FINDINGS: LOWER LUNGS: Small bilateral pneumothoraces. Bilateral pleural effusions with compressive atelectasis. A loculated complex collection in the medial lower right pleural space without significant change compared to th e prior exam. The left-sided pleural effusion and atelectasis is increased compared to the prior stud y. LIVER: The liver is stable in its noncontrast study. No definite dilated biliary ducts are demonstrated. The re is contrast in the gallbladder. No significant change compared to the prior study. SPLEEN: Status post splenectomy. Stable postsurgical changes in the left upper quadrant. PANCREAS: Within normal limits. KIDNEYS: Normal in size and shape. There is no mass, stone, or hydronephrosis. ADRENAL GLANDS: Within normal limits. VASCULAR: There is no aortic aneurysm. Right-sided central catheter in the right groin area. BOWEL/MESENTERY: The bowel gas pattern is within normal limits. There is a small amount of free fluid in the lower abd omen and pelvis. ABDOMINAL WALL: Edema throughout the subcutaneous soft tissues characteristic of anasarca. No significant changes. RETROPERITONEUM: There is no lymphadenopathy. BLADDER: Wallace catheter in urinary bladder. REPRODUCTIVE: Scrotal edema. No change INGUINAL: There is no lymphadenopathy or hernia. MUSCULOSKELETAL: The bony structures are stable. There are some developing calcifications in the soft tissues along th e left flank and posterior buttocks. There is also some developing calcifications in the julito of the right hemidiaphragm. CONCLUSION: 1. Small Bilateral pneumothoraces. The small right-sided pneumothorax appears to be new compared to t he prior study. 2. Small amount of free fluid in the lower abdomen and pelvis. No significant change. 3. Diffuse anasarca. No significant change. 4. Stable postsurgical changes in left upper quadrant. 5. Stable appearance of the liver on this postcontrast study. 6. Bilateral pleural effusions and compressive atelectasis in both lower lung rodrigues. No change wit h the loculated collection in the medial right lung base. 7. Nonspecific developing calcifications in the soft tissues of the left flank, julito of the right hem idiaphragm and bilateral posterior buttocks. Pop Damon MD on August 03, 2017 at 12:38 Board Certified Radiologist. This report was verified electronically.
[2017-08-03] MEDS: ACETAMINOPHEN 1000 MG/100 ML 100 ML IV PRN (12:55)
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
[2017-08-03] MEDS: CEFEPIME 1000 MG/NS 100 ML IV SCH ×2 (19:57)
[2017-08-03] MEDS: MICAFUNGIN INJ 100 MG in SODIUM CHLORIDE 0.9% INJ 100 ML IV SCH (22:13)
[2017-08-04] VITALS (18 sets, daily range): BP systolic 135–174; BP diastolic 62–78; PULSE 87–105; RESP 17–20; TEMP 98.7–100; O2SAT 93–100
[2017-08-04] MEDS: CHLORHEXIDINE GLUCONATE 2 % 1 PACK (2 CLOTHS) TOP SCH (02:36)
[2017-08-04] MEDS: PROPRANOLOL HCL 10 MG TAB PO SCH ×3 (02:37→18:11)
[2017-08-04 05:50] LABS: AUTOMATED NEUTROPHIL # 25.1 TH/MM3 (1.8-7.7); BASOPHIL # 0.2 TH/MM3 (0-0.2); BASOPHIL % 0.7 % (0.0-2.0); EOSINOPHIL # 0.8 TH/MM3 (0-0.4); EOSINOPHIL % 2.6 % (0.0-4.0); HEMATOCRIT 25.8 % (39.0-51.0); HEMOGLOBIN 8.2 GM/DL (13.0-17.0); LYMPH % 4.2 % (9.0-44.0); LYMPHOCYTE # 1.3 TH/MM3 (1.0-4.8); MEAN CELL VOLUME 93.6 FL (80.0-100.0); MEAN CORPUSCULAR HEMOGLOBIN 29.9 PG (27.0-34.0); MEAN CORPUSCULAR HGB CONC 31.9 % (32.0-36.0); MEAN PLATELET VOLUME 9.5 FL (7.0-11.0); MONO % 11.1 % (0.0-8.0); MONOCYTE # 3.4 TH/MM3 (0-0.9); NEUT % 81.4 % (16.0-70.0); PLATELET COUNT 846 TH/MM3 (150-450); RED BLOOD COUNT 2.75 MIL/MM3 (4.50-5.90); RED CELL DISTRIBUTION WIDTH 19.2 % (11.6-17.2); WHITE BLOOD COUNT 30.9 TH/MM3 (4.0-11.0)
[2017-08-04] MEDS: metroNIDAZOLE 500 MG TAB PO SCH ×3 (06:00→22:16)
[2017-08-04] MEDS: HEPARIN SODIUM - SQ 10,000 UNITS/ML VIAL SQ SCH ×3 (06:00→22:16)
[2017-08-04] MEDS: PANTOPRAZOLE SODIUM 40 MG VIAL IVP SCH (06:00)
--- NOTE | 2017-08-04 06:05 | RADRPT ---
EXAM DATE/TIME: 08/04/2017 04:48 [facility] COMPARISON: CHEST EXPIRATION ONLY, August 03, 2017, 12:24. INDICATIONS : Shortness of breath. MEDICAL HISTORY : Renal failure, chronic. CSP fractures SURGICAL HISTORY : Splenectomy. Right sided chest tube ENCOUNTER: Subsequent ACUITY: 3 weeks PAIN SCORE: Non-responsive. LOCATION: Bilateral chest FINDINGS: A single frontal expiratory view of the chest was performed. There is indices of the lung bases suspi cious for moderate-sized bilateral pleural effusions. Tracheostomy tube in good position. No evidenc e of pneumothorax. Mediastinal structures are in the midline. The cardio-mediastinal contours and bronchopulmonary markings are unremarkable for an expiratory exam . Osseous structures are intact. CONCLUSION: Increased density overlying the lung bases a combination of atelectasis and/or moderate-sized effusio ns, unchanged. Houston Clement MD on August 04, 2017 at 6:03 Board Certified Radiologist. This report was verified electronically.
[2017-08-04] MEDS: AMANTADINE HCL SOLN 100 MG/10 ML UDC PO SCH ×2 (06:09→10:47)
[2017-08-04] MEDS: SODIUM CHLORIDE 1 GRAM TAB PO SCH ×3 (06:09→22:18)
[2017-08-04] MEDS: hydrALAZINE HCL 20 MG/ML VIAL IV PUSH PRN (06:16)
[2017-08-04 06:21] LABS: ALKALINE PHOSPHATASE 166 U/L (45-117); ALT (GPT) 57 U/L (12-78); AST (GOT) 64 U/L (15-37); BICARBONATE 24.6 MEQ/L (21.0-32.0); BLOOD UREA NITROGEN 160 MG/DL (7-18); CHLORIDE 100 MEQ/L (98-107); GLOMERULAR FILTRATION RATE 6 ML/MIN (>89); GLUCOSE,RANDOM 108 MG/DL (74-106); SODIUM (NA) 143 MEQ/L (136-145); TOTAL BILIRUBIN ADULT 0.6 MG/DL (0.2-1.0); TOTAL PROTEIN 7.3 GM/DL (6.4-8.2)
[2017-08-04 06:27] LABS: CREATININE 11.54 MG/DL (0.60-1.30)
[2017-08-04] MEDS: ACETAMINOPHEN 1000 MG/100 ML 100 ML IV PRN (06:45)
[2017-08-04] MEDS: ARTIFICIAL TEARS OPTH OINT 3.5 APPLIC/3.5 GM TUBO EACH EYE SCH ×2 (07:42→20:40)
[2017-08-04] MEDS: CHLORHEXIDINE 0.12% (ORAL KIT) 15 ML CUP MT SCH ×2 (07:42→19:14)
[2017-08-04] MEDS: FUROSEMIDE 40 MG/4 ML VIAL IV PUSH SCH ×2 (07:42→18:11)
[2017-08-04] MEDS: LINEZOLID 600 MG PREMIX 300 ML IV SCH ×2 (07:42→19:14)
[2017-08-04] MEDS: DOCUSATE SODIUM 100 MG/10 ML UDC PO SCH ×2 (07:43→20:41)
[2017-08-04 08:04] LABS: BASOPHILS 1 % (0-2); LYMPHOCYTES 4 % (9-44); METAMYELOCYTES 2 % (0-1); MONOCYTES 4 % (0-8); NEUTROPHIL # MANUAL DIFF 27.8 TH/MM3 (1.8-7.7); POLYS (SEG NEUTROPHILS) 88 % (16-70)
[2017-08-04 08:05] LABS: TARGET CELLS 1+ (NORMAL)
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
[2017-08-04] MEDS: BENEPROTEIN POWDER 1 PACK G-TUBE SCH ×2 (12:03→18:00)
[2017-08-04] MEDS: oxyCODONE HCL ORAL CONC 5 MG/0.25 ML SYRINGE PO PRN ×2 (13:11→19:14)
[2017-08-04] MEDS ORDERED: PNEUMOCOCCAL 13 VALENT PED INJ 0.5 ML SYR IM ONE (14:00)
[2017-08-04] MEDS ORDERED: HAEMOPH B POLYSACCH CONJ VACCINE 0.5 ML VIAL IM ONE (14:00)
[2017-08-04] MEDS ORDERED: MENINGOCOCCAL CONJUGATE VACCINE 0.5 ML VIAL IM ONE (14:00)
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
[2017-08-04] MEDS: SODIUM CHLOR 0.9% 1000 ML INJ 1,000 ML OTHER PRN (16:20)
[2017-08-04] MEDS: GENTAMICIN SULFATE 20 MG/2 ML VIAL OTHER PRN (16:20)
[2017-08-04] MEDS: HEPARIN SODIUM - IV 10,000 UNITS/10 ML VIAL PRN (16:20)
[2017-08-04] MEDS ORDERED: PROPOFOL 500 MG/50 ML INJ 50 ML ONE (16:51)
[2017-08-04] MEDS ORDERED: ROCURONIUM INJ 50 MG/5 ML VIAL ONE (16:51)
[2017-08-04] MEDS ORDERED: PROPOFOL 1000 MG/100 ML BTL IV ONE (17:45)
[2017-08-04] MEDS ORDERED: ROCURONIUM INJ 50 MG/5 ML VIAL IV ONE (17:45)
--- NOTE | 2017-08-04 17:46 | RADRPT ---
EXAM DATE/TIME: 08/04/2017 17:20 [facility] COMPARISON: CHEST SINGLE AP, August 03, 2017, 9:17. INDICATIONS : Post bronchoscopy. MEDICAL HISTORY : None. SURGICAL HISTORY : Splenectomy. ENCOUNTER: Subsequent ACUITY: 1 day PAIN SCORE: Non-responsive. LOCATION: Bilateral chest FINDINGS: Trach tube in good position. Left pigtail catheter in good position. There is no pneumothorax. Bibasilar parenchymal changes with minimal improvement. Nasogastric tube across the GE junction. The heart and pulmonary vascularity are normal. CONCLUSION: Minimal improvement. Pigtail catheter on the left without pneumothorax. Edward Andrews MD FACR on August 04, 2017 at 17:43 Board Certified Radiologist. This report was verified electronically.
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
[2017-08-04] MEDS: CEFEPIME 1000 MG/NS 100 ML IV SCH ×2 (19:13)
[2017-08-04] MEDS: RESP: ALBUTEROL 2.5 MG/IPRATROPIUM 0.5 MG NEB (PRN) NEB (19:40)
[2017-08-04] MEDS: MICAFUNGIN INJ 100 MG in SODIUM CHLORIDE 0.9% INJ 100 ML IV SCH (22:16)
[2017-08-05] VITALS (25 sets, daily range): BP systolic 100–143; BP diastolic 42–65; PULSE 91–113; RESP 16–40; TEMP 98.8–99.6; O2SAT 73–100
[2017-08-05] MEDS: oxyCODONE HCL ORAL CONC 5 MG/0.25 ML SYRINGE PO PRN (00:45)
[2017-08-05] MEDS: RESP: ALBUTEROL 2.5 MG/IPRATROPIUM 0.5 MG NEB (PRN) NEB (01:22)
--- NOTE | 2017-08-05 02:04 | RADRPT ---
EXAM DATE/TIME: 08/05/2017 01:36 [facility] COMPARISON: CHEST SINGLE AP, August 04, 2017, 17:20. INDICATIONS : Decrease in oxygen saturation. MEDICAL HISTORY : Renal failure, acute. SURGICAL HISTORY : Splenectomy. Appendectomy. ENCOUNTER: Subsequent ACUITY: 2 weeks PAIN SCORE: Non-responsive. LOCATION: Bilateral chest FINDINGS: Considerable worsening airspace consolidation of the right lung. There is also increased right pleura l effusion, currently small moderate in size and with a laterally loculated component. Basilar consolidation on the left not significantly changed. Small caliber left chest tube remains in place. Potentially a small basilar pneumothorax. Tracheostomy tube again noted. Nasogastric tube with tip in the stomach again seen. Heart size stable, normal. CONCLUSION: 1. Worsening consolidation and pleural effusion on the right. 2. No significant change consolidation and potential small pneumothorax at the left base. Left chest tube remains in place. No apical pneumothorax. Marvin Redding MD on August 05, 2017 at 2:00 Board Certified Radiologist. This report was verified electronically.
[2017-08-05] MEDS: PROPRANOLOL HCL 10 MG TAB PO SCH ×3 (02:07→18:26)
[2017-08-05] MEDS: CHLORHEXIDINE GLUCONATE 2 % 1 PACK (2 CLOTHS) TOP SCH (02:07)
[2017-08-05 05:13] LABS: AUTOMATED NEUTROPHIL # 29.3 TH/MM3 (1.8-7.7); BASOPHIL # 0.3 TH/MM3 (0-0.2); BASOPHIL % 0.8 % (0.0-2.0); EOSINOPHIL # 0.3 TH/MM3 (0-0.4); EOSINOPHIL % 0.8 % (0.0-4.0); HEMATOCRIT 23.6 % (39.0-51.0); HEMOGLOBIN 7.5 GM/DL (13.0-17.0); LYMPH % 2.2 % (9.0-44.0); LYMPHOCYTE # 0.7 TH/MM3 (1.0-4.8); MEAN CELL VOLUME 94.3 FL (80.0-100.0); MEAN CORPUSCULAR HEMOGLOBIN 29.8 PG (27.0-34.0); MEAN CORPUSCULAR HGB CONC 31.6 % (32.0-36.0); MEAN PLATELET VOLUME 9.8 FL (7.0-11.0); MONO % 5.1 % (0.0-8.0); MONOCYTE # 1.6 TH/MM3 (0-0.9); NEUT % 91.1 % (16.0-70.0); PLATELET COUNT 709 TH/MM3 (150-450); RED CELL DISTRIBUTION WIDTH 20.3 % (11.6-17.2); WHITE BLOOD COUNT 32.1 TH/MM3 (4.0-11.0)
[2017-08-05 05:40] LABS: BICARBONATE 24.1 MEQ/L (21.0-32.0); CALCIUM 8.5 MG/DL (8.5-10.1); CREATININE 9.79 MG/DL (0.60-1.30)
[2017-08-05] MEDS: metroNIDAZOLE 500 MG TAB PO SCH ×3 (05:49→22:35)
[2017-08-05] MEDS: HEPARIN SODIUM - SQ 10,000 UNITS/ML VIAL SQ SCH ×3 (05:49→22:00)
[2017-08-05] MEDS: PANTOPRAZOLE SODIUM 40 MG VIAL IVP SCH (05:49)
[2017-08-05] MEDS: AMANTADINE HCL SOLN 100 MG/10 ML UDC PO SCH ×2 (05:49→13:42)
[2017-08-05] MEDS: SODIUM CHLORIDE 1 GRAM TAB PO SCH ×3 (05:49→22:35)
[2017-08-05 07:17] LABS: BANDS 3 % (0-6); BASOPHILS 1 % (0-2); LYMPHOCYTES 1 % (9-44); METAMYELOCYTES 1 % (0-1); MONOCYTES 2 % (0-8); MYELOCYTES 1 % (0-0); NEUTROPHIL # MANUAL DIFF 30.5 TH/MM3 (1.8-7.7); POLYS (SEG NEUTROPHILS) 90 % (16-70)
[2017-08-05 07:18] LABS: HOWELL-JOLLY BODIES PRESENT (NONE SEEN)
[2017-08-05] MEDS: CHLORHEXIDINE 0.12% (ORAL KIT) 15 ML CUP MT SCH ×2 (07:29→20:04)
[2017-08-05] MEDS: BENEPROTEIN POWDER 1 PACK G-TUBE SCH ×3 (07:58→18:00)
[2017-08-05] MEDS: ARTIFICIAL TEARS OPTH OINT 3.5 APPLIC/3.5 GM TUBO EACH EYE SCH ×2 (07:58→20:04)
[2017-08-05] MEDS: FUROSEMIDE 40 MG/4 ML VIAL IV PUSH SCH ×2 (07:59→18:08)
[2017-08-05] MEDS: DOCUSATE SODIUM 100 MG/10 ML UDC PO SCH ×2 (07:59→20:08)
[2017-08-05] MEDS: LINEZOLID 600 MG PREMIX 300 ML IV SCH ×2 (07:59→20:05)
[2017-08-05] MEDS ORDERED: ROCURONIUM INJ 50 MG/5 ML VIAL ONE (08:25)
[2017-08-05] MEDS ORDERED: MIDAZOLAM HCL 5 MG/ML VIAL (1 ML) ONE (08:25)
[2017-08-05] MEDS ORDERED: fentaNYL 50 MCG/HR PATCH T-DERMAL SCH (09:45)
[2017-08-05] MEDS ORDERED: ROCURONIUM INJ 50 MG/5 ML VIAL IV PUSH SCH (10:15)
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
[2017-08-05] MEDS ORDERED: MIDAZOLAM HCL 5 MG/5 ML VIAL IV PUSH SCH (10:30)
--- NOTE | 2017-08-05 10:36 | RADRPT ---
EXAM DATE/TIME: 08/05/2017 10:02 [facility] COMPARISON: CHEST SINGLE AP, August 05, 2017, 1:36. INDICATIONS : Post bronchoscopy MEDICAL HISTORY : Renal failure, acute. SURGICAL HISTORY : Splenectomy. Appendectomy. ENCOUNTER: Subsequent ACUITY: 3 weeks PAIN SCORE: Non-responsive. LOCATION: Bilateral chest FINDINGS: A single view of the chest demonstrates tracheostomy in good position. Small caliber left chest tube without significant pneumothorax. Right and left airspace disease with bilateral effusions, worse on the right. CONCLUSION: 1. Right-sided airspace disease and pleural effusion greater than left. Right effusion is at least pa rtially loculated. Tracheostomy and left chest tube without pneumothorax. Omari Moraes MD on August 05, 2017 at 10:30 Board Certified Radiologist. This report was verified electronically.
[2017-08-05] MEDS ORDERED: ALTEPLASE RECOMBINANT 2 MG VIAL ONE (12:30)
--- NOTE | 2017-08-05 13:22 | PD.RAD ---
Post CT Procedure Prog Note Pre Procedure Diagnosis: (1) Hemothorax on right Post Procedure Diagnosis: (1) Hemothorax on right Procedure Date: August 05, 2017 Supervising Radiologist: Alexandro Arias Anesthesia: Local Plan of Activity Patient to Unit: Critical Care Patient Condition: Fair See PACS Report for procedural detail/treatment Drainage Procedure Procedure 1 Imaging Guidance: CT Procedure Type: Chest Tube Non-Tunneled Procedure: Placement Cypriot: 10 Fluid Removal (CCs): 15 Fluid Description: Bloody Findings: Complex fluid in right pleural space characteristic of hemothorax with fluid and clot. 10mg TPA injected (in 50cc saline) in an attempt to break up solid component. 15 cc sample sent to lab for analysis. Alexandro Arias MD August 05, 2017 13:22
[2017-08-05] MEDS: fentaNYL 50 MCG/HR PATCH T-DERMAL SCH (13:42)
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
[2017-08-05] MEDS: MIDAZOLAM 50 MG/NS 50 ML DRIP Premix IV PRN ×2 (14:30→20:08)
[2017-08-05] MEDS ORDERED: ROCURONIUM INJ 50 MG/5 ML VIAL IV PUSH ONE (15:00)
[2017-08-05 15:10] LABS: HEMOGLOBIN 7.1 GM/DL (13.0-17.0)
[2017-08-05 15:22] LABS: INTERNATIONAL NORMALIZED RATIO 1.3 RATIO; PROTHROMBIN TIME - PATIENT 13.5 SEC (9.8-11.6)
[2017-08-05] MEDS: CISATRACURIUM 100 MG/NS 250 ML IV PRN ×2 (15:25)
[2017-08-05] MEDS ORDERED: THROMBIN (TOPICAL) 5,000 UNIT VIAL TOPICAL ONE (15:37)
--- NOTE | 2017-08-05 15:56 | RADRPT ---
EXAM DATE/TIME: 08/05/2017 15:12 [facility] COMPARISON: CHEST SINGLE AP, August 05, 2017, 10:02. INDICATIONS : Respiratory distress. MEDICAL HISTORY : None. SURGICAL HISTORY : None. ENCOUNTER: Subsequent ACUITY: 1 day PAIN SCORE: Non-responsive. LOCATION: Bilateral chest FINDINGS: Left apical pigtail thoracostomy tube is stable in good position. A right base thoracostomy tube is n ow present. Tracheostomy and nasogastric tube are stable. There has been improvement in aeration at t he right lung base with some clearance of pleuroparenchymal opacity. Right upper lung zone is grossly unchanged with dense consolidation in the perihilar region and hazy opacity elsewhere including some lateral apical pleural fluid or thickening. Persistent consolidation at the left base is grossly unc hanged. Cardiac contours are unchanged. CONCLUSION: Slight improvement in aeration at the right lung base post pigtail thoracostomy tube placement Marvin Bean MD on August 05, 2017 at 15:52 Board Certified Radiologist. This report was verified electronically.
--- NOTE | 2017-08-05 16:39 | MP ---
cc: Agustina Hadley MD DATE OF OPERATION: 08/05/2017 DATE OF PROCEDURE: 08/05/2017. PREOPERATIVE DIAGNOSIS: Retained secretions. Atelectasis of both lungs, right more than the left and a retained hydrothorax. POSTOPERATIVE DIAGNOSIS: Retained secretions. Atelectasis of both lungs, right more than the left and a retained hydrothorax. PROCEDURE PERFORMED: Bronchoscopy, evacuation of secretions. SURGEON: MD Leonie ANESTHESIA: Versed sedation and rocuronium paralysis. ESTIMATED BLOOD LOSS: None. PROCEDURE: The patient is prepared and then bronchoscope is inserted through the tracheostomy site into the trachea. The trachea appears to be clean. The right main stem bronchus is filled with mucus, thick material, grayish-white in color. This is suctioned off. I did not repeat the Lukens trap because we did this yesterday. The bronchoscope is now inserted into the second and third generation arborization of the bronchi and massive amounts of mucous material suctioned off mainly from the right lower lobe area. This is irrigated with copious amounts of saline and then bronchoscope inserted to the left lung where it is a smaller amount of secretions, but also some fairly thick ones which are removed. Once both lungs are cleared, the bronchoscope is withdrawn and chest x-ray obtained. The patient tolerates the procedure well. MD COURTNEY Muñoz/ADRIAN , 03:43 PM , 04:38 PM
--- NOTE | 2017-08-05 17:22 | RADRPT ---
EXAM DATE/TIME: 08/05/2017 12:13 [facility] COMPARISON: CT THORAX W/O CONTRAST, July 28, 2017, 15:05. INDICATIONS : Evaluate right lung for hemothorax RADIATION DOSE: 9.59 CTDIvol (mGy) MEDICAL HISTORY : Non-responsive. SURGICAL HISTORY : Non-responsive. ENCOUNTER: Subsequent ACUITY: 1 day PAIN SCALE: Non-responsive LOCATION: chest TECHNIQUE: Volumetric scanning of the chest was performed. Using automated exposure control and adjustment of t he mA and/or kV according to patient size, radiation dose was kept as low as reasonably achievable to obtain optimal diagnostic quality images. DICOM format image data is available electronically for r eview and comparison. Follow-up recommendations for detected pulmonary nodules are based at a minimum on nodule size and pa tient risk factors according to Fleischner Society Guidelines. FINDINGS: LUNGS: Persistent bibasilar atelectatic changes. A Bridgman loop catheter is in the apex of the left hemithorax but there is still a small pneumothorax. Minimal airspace disease in the left lingula. Scattered airs pace disease in both hemithoraces. PLEURAE: There are bilateral pleural effusions. The effusion on the left is small. The right is large and comp ying with apparent solid and cystic components probably representing hematoma/hemorrhage. There is als o a loculated component along the anterolateral aspect of the mid and upper right chest which was not present previously. Previously seen a right-sided surgical thoracostomy tube has been removed. MEDIASTINUM: The heart and great vessels demonstrate no acute abnormality. There is no mediastinal or hilar lymph adenopathy. Tracheostomy tube is appropriately positioned. AXILLAE: Within normal limits. No lymphadenopathy. MUSCULOSKELETAL: Comminuted fracture of the left scapula. Osseous structures are otherwise intact. MISCELLANEOUS: The visualized upper abdominal organs demonstrate no acute abnormality. CONCLUSION: 1. Bilateral scattered air space disease most prominent in the right upper lung, right middle lobe an d left lingula. These were present previously. 2. Left-sided pneumothorax seen previously is much smaller on the current exam. There is a Bridgman loop catheter positioned in the apex of the left hemithorax. 3. Bilateral pleural effusions with concomitant atelectatic changes in the lung bases. There may be l oculated air in the right basilar effusion with complex, heterogeneous material probably representing hemorrhage/clot. 4. In addition, loculated pleural effusion in the mid and upper anterolateral right hemithorax which was not present previously. 5. Comminuted fracture of the left scapula. Alexandro Arias MD on August 05, 2017 at 17:11 Board Certified Radiologist. This report was verified electronically.
--- NOTE | 2017-08-05 17:28 | RADRPT ---
EXAM DATE/TIME: 08/05/2017 12:13 INDICATIONS : Right pleural fluid DEVICE(S): 1.) 10 Fr Ruth FLUID: Total volume of15 cc of red fluid was remoted. Fluid was sent for laboratory ordered studies. MEDICAL HISTORY : Unresponsive SURGICAL HISTORY : Unresponsive ENCOUNTER: Initial ACUITY: 1 day PAIN SCORE: Non-responsive LOCATION: Right anterior PROCEDURE: PROCEDURE : 1. CT guided chest tube placement. . The risks, benefits and alternatives to the procedure were explained and verbal and written consent w as obtained. The site was prepped in sterile fashion. Full sterile technique was used, including ca p, mask, sterile gloves and gown and a large sterile sheet. Hand hygiene and 2% chlorhexidine and/or betadine/alcohol prep was utilized per protocol for cutaneous antisepsis. The skin and subcutaneous tissues were infiltrated with local anesthetic solution. Using automated exposure control and adjus tment of the mA and/or kV according to patient size, radiation dose was kept as low as reasonably ach ievable to obtain optimal diagnostic quality images. DICOM format image data is available electronic ally for review and comparison. With CT guidance the chest was punctured with an 18 gauge [place] blunt needle. Approximately 15 cc o f old blood was removed and sent to laboratory for analysis. An 035 wire was advanced through the out er cannula and into the pleural space. Position was confirmed with CT. Over the wire, a 10 [place] non locking [place] loop catheter was placed into the pleural space. In an effort to improve aeration in the right lung, 10 mg of TPA in 50 cc of saline was then infused into the pleural space. The tube was ca pped. The patient tolerated the procedure well and there were no complications. EKG and oximetry remained s table throughout the procedure. The patient was sent to post anesthesia recovery in stable condition. CONCLUSION: 1. Uncomplicated chest tube placement as above. 2. Collection appears to represent a hemo-pneumothorax with a large burden of thrombus in the pleural space and a loculated component anterolaterally in the mid and upper chest. A 3. In an effort to improve aeration of the right hemithorax, 10 mg of TPA in 50 cc of saline was infu sed into the recently placed catheter. This will be left to dwell for the next 8 hours and the patien t will then be connected to Pleur-evac suction. Alexandro Arias MD on August 05, 2017 at 17:19 Board Certified Radiologist. This report was verified electronically.
[2017-08-05] MEDS: CEFEPIME 1000 MG/NS 100 ML IV SCH ×2 (20:04)
[2017-08-05] MEDS: MICAFUNGIN INJ 100 MG in SODIUM CHLORIDE 0.9% INJ 100 ML IV SCH (22:35)
[2017-08-06] VITALS (19 sets, daily range): BP systolic 106–134; BP diastolic 47–57; PULSE 90–103; RESP 18–20; TEMP 98.8–99.4; O2SAT 97–100
[2017-08-06] MEDS: CHLORHEXIDINE GLUCONATE 2 % 1 PACK (2 CLOTHS) TOP SCH (00:54)
[2017-08-06] MEDS: PROPRANOLOL HCL 10 MG TAB PO SCH ×3 (03:00→17:21)
--- NOTE | 2017-08-06 05:14 | RADRPT ---
EXAM DATE/TIME: 08/06/2017 03:19 [facility] COMPARISON: CHEST SINGLE AP, August 05, 2017, 15:12. INDICATIONS : Respiratory failure. MEDICAL HISTORY : None. SURGICAL HISTORY : None. ENCOUNTER: Subsequent ACUITY: 3 weeks PAIN SCORE: Non-responsive. LOCATION: Bilateral chest FINDINGS: A single view of the chest demonstrates bibasilar airspace disease. Pleural-parenchymal density right upper lobe. Small caliber chest tube left apex without significant pneumothorax. Tracheostomy tube a nd nasogastric tube unchanged. There is also small caliber chest tube in the right lower chest, uncha nged. No pneumothorax. Osseous structures are intact. CONCLUSION: Bilateral parenchymal densities. Improvement in the right upper lobe on current study. No pneumothora x. Samm Cosby MD on August 06, 2017 at 5:12 Board Certified Radiologist. This report was verified electronically.
[2017-08-06] MEDS: PANTOPRAZOLE SODIUM 40 MG VIAL IVP SCH (05:42)
[2017-08-06] MEDS: AMANTADINE HCL SOLN 100 MG/10 ML UDC PO SCH (05:42)
[2017-08-06] MEDS: SODIUM CHLORIDE 1 GRAM TAB PO SCH ×3 (05:42→22:24)
[2017-08-06] MEDS: metroNIDAZOLE 500 MG TAB PO SCH (05:42)
[2017-08-06 05:43] LABS: AUTOMATED NEUTROPHIL # 41.7 TH/MM3 (1.8-7.7); BASOPHIL # 0.2 TH/MM3 (0-0.2); BASOPHIL % 0.5 % (0.0-2.0); EOSINOPHIL # 0.2 TH/MM3 (0-0.4); EOSINOPHIL % 0.4 % (0.0-4.0); HEMATOCRIT 22.5 % (39.0-51.0); HEMOGLOBIN 7.1 GM/DL (13.0-17.0); LYMPH % 3.6 % (9.0-44.0); LYMPHOCYTE # 1.7 TH/MM3 (1.0-4.8); MEAN CELL VOLUME 92.2 FL (80.0-100.0); MEAN CORPUSCULAR HEMOGLOBIN 29.1 PG (27.0-34.0); MEAN CORPUSCULAR HGB CONC 31.6 % (32.0-36.0); MEAN PLATELET VOLUME 9.5 FL (7.0-11.0); MONO % 6.2 % (0.0-8.0); MONOCYTE # 2.9 TH/MM3 (0-0.9); NEUT % 89.3 % (16.0-70.0); PLATELET COUNT 500 TH/MM3 (150-450); RED BLOOD COUNT 2.43 MIL/MM3 (4.50-5.90); RED CELL DISTRIBUTION WIDTH 19.1 % (11.6-17.2); WHITE BLOOD COUNT 46.7 TH/MM3 (4.0-11.0)
[2017-08-06 06:19] LABS: BICARBONATE 23.9 MEQ/L (21.0-32.0); CALCIUM 8.4 MG/DL (8.5-10.1)
[2017-08-06 06:21] LABS: CREATININE 10.95 MG/DL (0.60-1.30)
[2017-08-06 06:48] LABS: BANDS 19 % (0-6); LYMPHOCYTES 3 % (9-44); MONOCYTES 2 % (0-8); NEUTROPHIL # MANUAL DIFF 44.4 TH/MM3 (1.8-7.7); POLYS (SEG NEUTROPHILS) 76 % (16-70)
[2017-08-06 06:49] LABS: OVALOCYTES 1+ (NORMAL); TARGET CELLS 2+ (NORMAL)
[2017-08-06] MEDS: LINEZOLID 600 MG PREMIX 300 ML IV SCH ×2 (08:30→21:00)
[2017-08-06] MEDS: SODIUM CHLORIDE 0.9% FLUSH 10 ML FLUSH IV FLUSH PRN (08:30)
[2017-08-06] MEDS: DOCUSATE SODIUM 100 MG/10 ML UDC PO SCH ×2 (08:31→21:00)
[2017-08-06] MEDS: FUROSEMIDE 40 MG/4 ML VIAL IV PUSH SCH ×2 (08:31→17:21)
[2017-08-06] MEDS: CHLORHEXIDINE 0.12% (ORAL KIT) 15 ML CUP MT SCH ×2 (08:31→22:17)
[2017-08-06] MEDS: ARTIFICIAL TEARS OPTH OINT 3.5 APPLIC/3.5 GM TUBO EACH EYE SCH ×2 (08:32→22:18)
[2017-08-06] MEDS: BENEPROTEIN POWDER 1 PACK G-TUBE SCH ×3 (08:32→17:21)
[2017-08-06] MEDS: MIDAZOLAM 50 MG/NS 50 ML DRIP Premix IV PRN ×3 (08:33→23:27)
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
[2017-08-06] MEDS ORDERED: PHARMACY INFORMATION XX PRN (09:00)
[2017-08-06] MEDS ORDERED: ASP: Other exception documentation: ( ) PRN (09:00)
[2017-08-06] MEDS ORDERED: MEROPENEM INJ 2,000 MG in SODIUM CHLORIDE 0.9% INJ 100 ML IV SCH ×2 (09:45→11:00)
[2017-08-06] MEDS ORDERED: SODIUM CHLOR 0.9% 250 ML INJ 250 ML IV ONE (10:00)
[2017-08-06] MEDS: MEROPENEM IV SCH ×2 (11:48→23:27)
[2017-08-06] MEDS: SODIUM CHLORIDE 0.9% IV SCH ×2 (11:48→23:27)
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
[2017-08-06] MEDS: MICAFUNGIN INJ 100 MG in SODIUM CHLORIDE 0.9% INJ 100 ML IV SCH (22:24)
[2017-08-07] VITALS (18 sets, daily range): BP systolic 116–144; BP diastolic 52–68; PULSE 84–90; RESP 18; TEMP 99–100.2; O2SAT 96–100
[2017-08-07] MEDS: CISATRACURIUM 100 MG/NS 250 ML IV PRN ×2 (01:52)
[2017-08-07] MEDS: PROPRANOLOL HCL 10 MG TAB PO SCH ×3 (03:25→18:17)
[2017-08-07] MEDS: CHLORHEXIDINE GLUCONATE 2 % 1 PACK (2 CLOTHS) TOP SCH (03:26)
--- NOTE | 2017-08-07 04:10 | RADRPT ---
EXAM DATE/TIME: 08/07/2017 03:27 [place] COMPARISON: CHEST SINGLE AP, August 06, 2017, 3:19. INDICATIONS : Respiratory failure. MEDICAL HISTORY : None. SURGICAL HISTORY : None. ENCOUNTER: Subsequent ACUITY: 3 weeks PAIN SCORE: Non-responsive. LOCATION: Bilateral chest FINDINGS: A single AP semierect view of the chest was obtained and again demonstrates the tracheostomy tube and nasogastric tube in place. The left pigtail small bore chest tube remains in place with no visualize d left pneumothorax. The small bore right-sided chest tube remains in place with the catheter tip pro jected over the lung base. There is new lucency along the lateral right lung base there pleural refle ction consistent with a basilar pneumothorax. There is loculated right pleural fluid again noted. The re is increased opacity in the right upper lobe. Consolidation remains in both lung bases right great er than left. The heart size is at the upper limits of normal. CONCLUSION: 1. New small basilar right lateral pneumothorax. This is adjacent to the small bore right-sided chest tube. 2. Left-sided chest tube in place with no visualized left pneumothorax. 3. Increased consolidation in the right upper lobe. Consolidation remains in both lung bases. 4. Sam Foster MD on August 07, 2017 at 4:05 Board Certified Radiologist. This report was verified electronically.
[2017-08-07 04:47] LABS: HEMATOCRIT 25.5 % (39.0-51.0); HEMOGLOBIN 8.1 GM/DL (13.0-17.0); MEAN CELL VOLUME 91.8 FL (80.0-100.0); MEAN CORPUSCULAR HGB CONC 31.6 % (32.0-36.0); MEAN PLATELET VOLUME 9.9 FL (7.0-11.0); PLATELET COUNT 454 TH/MM3 (150-450); RED BLOOD COUNT 2.78 MIL/MM3 (4.50-5.90); RED CELL DISTRIBUTION WIDTH 19.9 % (11.6-17.2); WHITE BLOOD COUNT 38.3 TH/MM3 (4.0-11.0)
[2017-08-07 05:03] LABS: BICARBONATE 25.5 MEQ/L (21.0-32.0); CALCIUM 8.6 MG/DL (8.5-10.1); CREATININE 8.9 MG/DL (0.60-1.30)
[2017-08-07] MEDS: PANTOPRAZOLE SODIUM 40 MG VIAL IVP SCH (05:23)
[2017-08-07] MEDS: SODIUM CHLORIDE 1 GRAM TAB PO SCH ×3 (05:23→22:24)
[2017-08-07 05:41] LABS: BANDS 1 % (0-6); LYMPHOCYTES 5 % (9-44); METAMYELOCYTES 5 % (0-1); MONOCYTES 1 % (0-8); POLYS (SEG NEUTROPHILS) 88 % (16-70)
[2017-08-07] MEDS: DOCUSATE SODIUM 100 MG/10 ML UDC PO SCH ×2 (09:00→21:00)
[2017-08-07] MEDS: ARTIFICIAL TEARS OPTH OINT 3.5 APPLIC/3.5 GM TUBO EACH EYE SCH ×2 (09:44→21:00)
[2017-08-07] MEDS: LINEZOLID 600 MG PREMIX 300 ML IV SCH ×2 (09:44→21:00)
[2017-08-07] MEDS: BENEPROTEIN POWDER 1 PACK G-TUBE SCH ×3 (09:44→18:00)
[2017-08-07] MEDS: CHLORHEXIDINE 0.12% (ORAL KIT) 15 ML CUP MT SCH ×2 (09:44→20:00)
[2017-08-07] MEDS: FUROSEMIDE 40 MG/4 ML VIAL IV PUSH SCH ×2 (09:45→18:17)
[2017-08-07] MEDS: MEROPENEM IV SCH ×2 (11:39→23:31)
[2017-08-07] MEDS: SODIUM CHLORIDE 0.9% IV SCH ×2 (11:39→23:31)
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
[2017-08-07] MEDS: MIDAZOLAM 50 MG/NS 50 ML DRIP Premix IV PRN (19:40)
[2017-08-07] MEDS: RESP: ALBUTEROL 2.5 MG/IPRATROPIUM 0.5 MG NEB (PRN) NEB (20:38)
[2017-08-07] MEDS: MICAFUNGIN INJ 100 MG in SODIUM CHLORIDE 0.9% INJ 100 ML IV SCH (22:24)
[2017-08-08] VITALS (18 sets, daily range): BP systolic 132–158; BP diastolic 63–74; PULSE 78–98; RESP 18–22; TEMP 98.5–99.5; O2SAT 90–100
[2017-08-08] MEDS: PROPRANOLOL HCL 10 MG TAB PO SCH (03:04)
[2017-08-08] MEDS: CHLORHEXIDINE GLUCONATE 2 % 1 PACK (2 CLOTHS) TOP SCH (04:00)
[2017-08-08 04:39] LABS: AUTOMATED NEUTROPHIL # 25.6 TH/MM3 (1.8-7.7); BASOPHIL # 0.2 TH/MM3 (0-0.2); BASOPHIL % 0.5 % (0.0-2.0); EOSINOPHIL # 0.6 TH/MM3 (0-0.4); EOSINOPHIL % 2.1 % (0.0-4.0); HEMATOCRIT 24.9 % (39.0-51.0); LYMPH % 4.5 % (9.0-44.0); LYMPHOCYTE # 1.3 TH/MM3 (1.0-4.8); MEAN CELL VOLUME 92.1 FL (80.0-100.0); MEAN CORPUSCULAR HEMOGLOBIN 29.6 PG (27.0-34.0); MEAN CORPUSCULAR HGB CONC 32.2 % (32.0-36.0); MEAN PLATELET VOLUME 9.6 FL (7.0-11.0); MONO % 6.3 % (0.0-8.0); MONOCYTE # 1.9 TH/MM3 (0-0.9); NEUT % 86.6 % (16.0-70.0); PLATELET COUNT 449 TH/MM3 (150-450); RED CELL DISTRIBUTION WIDTH 20.1 % (11.6-17.2); WHITE BLOOD COUNT 29.5 TH/MM3 (4.0-11.0)
[2017-08-08 05:03] LABS: BICARBONATE 24.4 MEQ/L (21.0-32.0); CALCIUM 8.2 MG/DL (8.5-10.1); CREATININE 9.51 MG/DL (0.60-1.30)
--- NOTE | 2017-08-08 05:12 | RADRPT ---
EXAM DATE/TIME: 08/08/2017 04:28 [place] COMPARISON: CT THORAX W/O CONTRAST, August 05, 2017, 12:13. CHEST SINGLE AP, August 07, 2017, 3:27. INDICATIONS : Followup right pneumothorax. MEDICAL HISTORY : None. SURGICAL HISTORY : None. ENCOUNTER: Subsequent ACUITY: 1 day PAIN SCORE: Non-responsive. LOCATION: Bilateral chest FINDINGS: A single AP semierect portable view of the chest was obtained and demonstrates the tracheostomy tube in place. A nasogastric tube is again seen coursing through the esophagus and stomach. The small bore right-sided chest tube remains in place projected over the lung base and the previous noted basilar pneumothorax is not significantly changed. Abnormal opacity remains throughout the right lung. The le ft-sided chest tube remains in place with the tip projected over lung apex. There is no left pneumoth orax. The heart size is at the upper limits of normal. Hazy opacity remains at the left lung base wit h blunting of the costophrenic angle. The tip is cut off the exam. The comminuted fracture of the lef t scapula is again noted. CONCLUSION: 1. The right basilar pneumothorax is not significantly changed. 2. Abnormal opacity remains throughout the majority of the right lung. 3. There is stable hazy opacity at the left lung base. Sam Foster MD on August 08, 2017 at 5:06 Board Certified Radiologist. This report was verified electronically.
[2017-08-08] MEDS: PANTOPRAZOLE SODIUM 40 MG VIAL IVP SCH (05:40)
[2017-08-08] MEDS: SODIUM CHLORIDE 1 GRAM TAB PO SCH ×3 (05:40→20:52)
[2017-08-08] MEDS: MIDAZOLAM 50 MG/NS 50 ML DRIP Premix IV PRN (06:08)
[2017-08-08] MEDS: hydrALAZINE HCL 20 MG/ML VIAL IV PUSH PRN (06:49)
[2017-08-08] MEDS: CHLORHEXIDINE 0.12% (ORAL KIT) 15 ML CUP MT SCH ×2 (08:31→20:00)
[2017-08-08] MEDS: FUROSEMIDE 40 MG/4 ML VIAL IV PUSH SCH ×2 (08:32→18:25)
[2017-08-08] MEDS: BENEPROTEIN POWDER 1 PACK G-TUBE SCH ×3 (08:32→18:00)
[2017-08-08] MEDS: ARTIFICIAL TEARS OPTH OINT 3.5 APPLIC/3.5 GM TUBO EACH EYE SCH ×2 (08:32→20:53)
[2017-08-08] MEDS: oxyCODONE HCL ORAL CONC 5 MG/0.25 ML SYRINGE PO PRN ×2 (08:33→20:53)
[2017-08-08] MEDS: LINEZOLID 600 MG PREMIX 300 ML IV SCH ×2 (08:33→20:53)
[2017-08-08] MEDS: DOCUSATE SODIUM 100 MG/10 ML UDC PO SCH ×2 (08:33→20:52)
[2017-08-08 10:10] LABS: LYMPHOCYTES 5 % (9-44); MONOCYTES 4 % (0-8); MYELOCYTES 3 % (0-0); NEUTROPHIL # MANUAL DIFF 26.8 TH/MM3 (1.8-7.7); POLYS (SEG NEUTROPHILS) 88 % (16-70)
[2017-08-08 10:11] LABS: KERATOCYTES 1+ (NORMAL)
[2017-08-08 10:12] LABS: ACANTHOCYTES OCC (NORMAL)
[2017-08-08] MEDS: REMOVE OLD DURAGESIC (FENTANYL) PATCH T-DERMAL SCH (11:00)
[2017-08-08] MEDS: METOPROLOL TARTRATE 5 MG/5 ML VIAL IV PUSH SCH ×2 (11:19→16:09)
[2017-08-08] MEDS: SODIUM CHLORIDE 0.9% IV SCH (11:20)
[2017-08-08] MEDS: MEROPENEM IV SCH (11:20)
[2017-08-08] MEDS: fentaNYL 50 MCG/HR PATCH T-DERMAL SCH (11:20)
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
--- NOTE | 2017-08-08 12:59 | HHI.CCPN ---
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 care 38 minutes Agustina Hadley MD August 08, 2017 12:59
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
[2017-08-08] MEDS: MICAFUNGIN INJ 100 MG in SODIUM CHLORIDE 0.9% INJ 100 ML IV SCH (20:52)
[2017-08-09] VITALS (18 sets, daily range): BP systolic 124–139; BP diastolic 62–71; PULSE 80–96; RESP 18–20; TEMP 97.6–98.5; O2SAT 95–100
[2017-08-09] MEDS: MIDAZOLAM 50 MG/NS 50 ML DRIP Premix IV PRN (00:05)
[2017-08-09] MEDS: METOPROLOL TARTRATE 5 MG/5 ML VIAL IV PUSH SCH ×5 (00:05→23:34)
[2017-08-09] MEDS: SODIUM CHLORIDE 0.9% IV SCH ×3 (02:07→23:58)
[2017-08-09] MEDS: MEROPENEM IV SCH ×3 (02:07→23:58)
[2017-08-09] MEDS: CHLORHEXIDINE GLUCONATE 2 % 1 PACK (2 CLOTHS) TOP SCH (03:16)
[2017-08-09] MEDS: PANTOPRAZOLE SODIUM 40 MG VIAL IVP SCH (05:26)
[2017-08-09] MEDS: SODIUM CHLORIDE 1 GRAM TAB PO SCH ×3 (05:26→22:01)
--- NOTE | 2017-08-09 05:53 | RADRPT ---
EXAM DATE/TIME: 08/09/2017 05:07 [place] COMPARISON: CHEST SINGLE AP, August 08, 2017, 4:28. INDICATIONS : Follow up pneumothorax. MEDICAL HISTORY : None. SURGICAL HISTORY : None. ENCOUNTER: Subsequent ACUITY: 2 days PAIN SCORE: Non-responsive. LOCATION: Bilateral chest FINDINGS: A single view of the chest demonstrates tracheostomy in good position. NG tube in stomach. Bilateral mostly basilar airspace consolidation is similar to August 08. Small caliber right chest tube without pn eumothorax. Loculated fluid upper right hemithorax is relatively stable. Small caliber left chest tub e at apex without pneumothorax. CONCLUSION: 1. Stable exam with loculated pleural fluid on the right and multifocal airspace disease compared wit h August 08. Tracheostomy and NG tube unchanged. Bilateral chest tubes without pneumothorax. Omari Moraes MD on August 09, 2017 at 5:48 Board Certified Radiologist. This report was verified electronically.
[2017-08-09 05:57] LABS: AUTOMATED NEUTROPHIL # 21.6 TH/MM3 (1.8-7.7); BASOPHIL # 0.2 TH/MM3 (0-0.2); BASOPHIL % 0.6 % (0.0-2.0); EOSINOPHIL # 0.5 TH/MM3 (0-0.4); HEMATOCRIT 25.6 % (39.0-51.0); HEMOGLOBIN 8.4 GM/DL (13.0-17.0); LYMPH % 4.6 % (9.0-44.0); LYMPHOCYTE # 1.2 TH/MM3 (1.0-4.8); MEAN CELL VOLUME 92.1 FL (80.0-100.0); MEAN CORPUSCULAR HEMOGLOBIN 30.1 PG (27.0-34.0); MEAN CORPUSCULAR HGB CONC 32.7 % (32.0-36.0); MEAN PLATELET VOLUME 9.7 FL (7.0-11.0); MONO % 7.3 % (0.0-8.0); MONOCYTE # 1.9 TH/MM3 (0-0.9); NEUT % 85.5 % (16.0-70.0); PLATELET COUNT 477 TH/MM3 (150-450); RED BLOOD COUNT 2.78 MIL/MM3 (4.50-5.90); RED CELL DISTRIBUTION WIDTH 20.9 % (11.6-17.2); WHITE BLOOD COUNT 25.3 TH/MM3 (4.0-11.0)
[2017-08-09 06:23] LABS: CALCIUM 8.2 MG/DL (8.5-10.1)
[2017-08-09 06:26] LABS: CREATININE 10.11 MG/DL (0.60-1.30)
[2017-08-09] MEDS: CHLORHEXIDINE 0.12% (ORAL KIT) 15 ML CUP MT SCH ×2 (07:58→20:18)
[2017-08-09 08:15] LABS: BANDS 1 % (0-6); CORRECTED NUCLEATED RBC 1 /100 WBC (0-0); HOWELL-JOLLY BODIES PRESENT (NONE SEEN); LYMPHOCYTES 4 % (9-44); METAMYELOCYTES 3 % (0-1); MONOCYTES 6 % (0-8); NEUTROPHIL # MANUAL DIFF 21.5 TH/MM3 (1.8-7.7); NUCLEATED RED BLOOD CELL 1 (0-0); POLYCHROMASIA 2.1 % (0.0-1.9); POLYS (SEG NEUTROPHILS) 81 % (16-70); TARGET CELLS 1+ (NORMAL)
[2017-08-09] MEDS: GENTAMICIN SULFATE 20 MG/2 ML VIAL OTHER PRN (08:52)
[2017-08-09] MEDS: HEPARIN SODIUM - IV 10,000 UNITS/10 ML VIAL PRN (08:52)
[2017-08-09] MEDS: ALBUMIN 25% INJ 100 ML IV PRN (08:52)
[2017-08-09] MEDS: EPOETIN ALFA 10,000 UNITS/ML VIAL IV PUSH PRN (08:53)
[2017-08-09] MEDS: DOCUSATE SODIUM 100 MG/10 ML UDC PO SCH ×2 (09:00→20:19)
[2017-08-09] MEDS: ARTIFICIAL TEARS OPTH OINT 3.5 APPLIC/3.5 GM TUBO EACH EYE SCH ×2 (09:00→20:18)
[2017-08-09] MEDS: BENEPROTEIN POWDER 1 PACK G-TUBE SCH ×3 (09:00→17:12)
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
[2017-08-09] MEDS: oxyCODONE HCL ORAL CONC 5 MG/0.25 ML SYRINGE PO PRN ×3 (11:23→21:52)
[2017-08-09] MEDS: LINEZOLID 600 MG PREMIX 300 ML IV SCH ×2 (11:30→20:18)
[2017-08-09] MEDS: FUROSEMIDE 40 MG/4 ML VIAL IV PUSH SCH ×2 (11:30→17:13)
[2017-08-09] MEDS: HEPARIN SODIUM - SQ 10,000 UNITS/ML VIAL SQ SCH ×2 (14:00→22:00)
--- NOTE | 2017-08-09 14:55 | RADRPT ---
EXAM DATE/TIME: 08/09/2017 14:20 [place] COMPARISON: CT THORAX W/O CONTRAST, August 05, 2017, 12:13. INDICATIONS : Loculated pleural fluid on right RADIATION DOSE: 8.91 CTDIvol (mGy) MEDICAL HISTORY : None SURGICAL HISTORY : None. ENCOUNTER: Subsequent ACUITY: 1 week PAIN SCALE: Non-responsive LOCATION: chest TECHNIQUE: Volumetric scanning of the chest was performed. Using automated exposure control and adjustment of t he mA and/or kV according to patient size, radiation dose was kept as low as reasonably achievable to obtain optimal diagnostic quality images. DICOM format image data is available electronically for r eview and comparison. Follow-up recommendations for detected pulmonary nodules are based at a minimum on nodule size and pa tient risk factors according to Fleischner Society Guidelines. FINDINGS: There is loculated effusion anteriorly in the right lung. Catheter is seen in likely fluid with bloo d and debris in the right lung base. Small left pneumothorax is evident. . There's the small chest tube anteriorly on the left. Loculated fluid and consolidation present in the left lung base. There is no axillary adenopathy. Pr there is no mediastinal adenopathy. CONCLUSION: Persistent fluid in spite of chest tubes. The right lower chest it could be up sized. The chest tub e second tube or may definitive chest tubes could be placed on the right... Edward Andrews MD FACR on August 09, 2017 at 14:41 Board Certified Radiologist. This report was verified electronically.
--- NOTE | 2017-08-09 16:26 | HHI.CCPN ---
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 possible mini thoracotomy that should be certainly helpful to the patient Remains on assist control ventilation 40% FiO2 and 10 of PEEP We will gradually decrease the PEEP at this time considering the patient is saturating adequately and has improved PO2 FiO2 gradient Abdomen/GI Nutrition Abdomen soft enteral feeds tolerated and midline incision skin is slowly granulating in Enteral feeds of tolerated Renal/I&O Renal functions still remains a problem patient remains on dialysis but it started to put some urine out Discussed this with fluorescent lamp replacer and Dr. Nichols's expert opinion and management is greatly appreciated Vascular Central Line Catheter Date of Insertion: Jul 16, 2017 Line: Central Venous Catheter Side: Left Location: Subclavian Assessment and Plan Plan Start to wean the ventilator Follow ID recommendations for infectious issues CT scan abdomen and pelvis to rule out collection IR to place left-sided chest tube Continue DVT prophylaxis Continue to wean sedated agents Continue amantadine Attestation Critical care time 34 min Agustina Hadley MD August 09, 2017 16:26
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
--- NOTE | 2017-08-09 16:41 | PD.WCN.NOT ---
Wound Consult Description: Received wound management consult for bilateral buttocks from Lj Tracy Communicated with: NICOLE andres [facility], and Doctor Vasquez Recommendation: Strict 2 hour turns from left to right sides only, limiting back position for therapies only. Apply Calazime BID and PRN to bilateral buttocks and gluteal cleft denuded, peeling skin covering shallow stage 3 wounds on coccyx/bilateral buttocks to keep dry. USE ONLY disposable wicking ULTRASORB underpads for moisture/incontinence. Additional Information: Patient seen on [address] [place] [address] for evaluation of bilateral buttocks wound management. Patient was seen previously by Stella CERRATO for deep tissue injuries to bilateral buttocks/ sacral areas on 07/26. Patient assessed today with Sobia andres and com writer. Patient was positioned by Sobia andres and com writer to L side for wound assessment. Patient is laying on two cloth underpads and one ultra sorb pad.Patient is noted with two shallow stage 3 pressure injuries. Pressure injury one is on the coccyx extending to L buttock . The second wound is noted to R buttock. Pressure injury one to coccyx extending to L buttock measures ~2cm x ~5cm x ~0.2cm. Wound presents with ~40% adipose tissue visible and ~60% pink tissue. Presence of adipose tissue indicates stage 3 pressure injury.Wound bed is moist with scant serous drainage and no odor. Periwound presents with denuded, peeling skin,and blanchable erythema. The second Pressure injury on R buttock measures ~2cm x ~1.5cm x ~0.1cm. Wound to R buttock is actually two small wounds very close to together that are measured as one. Wound bed presents with ~30% adipose tissue and ~70% pink tissue that is moist with scant serous drainage and is without odor. Periwound presents with denuded, peeling skin with blanchable erythema. Wound margins are well defined. R buttock wound has a round shape. While wound to coccyx extending to L buttock has an irregular shape.Both wounds present with mixed etiology of moisture, pressure, and friction Patient has fecal containment device present. Due to the condition of the periwound skin, do not recommend covering wound at this time. Recommend continuing Calazime skin protectant paste and patient to be reassessed by wound care nurse at a later date. If patient is stable recommend low airloss surface. Ni [facility]iz [facility] August 09, 2017 16:41
[2017-08-10] VITALS (19 sets, daily range): BP systolic 121–164; BP diastolic 56–74; PULSE 83–100; RESP 18–19; TEMP 98–98.8; O2SAT 91–100
[2017-08-10] MEDS: oxyCODONE HCL ORAL CONC 5 MG/0.25 ML SYRINGE PO PRN ×4 (02:46→22:03)
[2017-08-10] MEDS: CHLORHEXIDINE GLUCONATE 2 % 1 PACK (2 CLOTHS) TOP SCH (04:00)
[2017-08-10] MEDS: METOPROLOL TARTRATE 5 MG/5 ML VIAL IV PUSH SCH ×4 (04:32→22:03)
[2017-08-10] MEDS: MIDAZOLAM 50 MG/NS 50 ML DRIP Premix IV PRN (04:44)
[2017-08-10] MEDS: RESP: ALBUTEROL 2.5 MG/IPRATROPIUM 0.5 MG NEB (PRN) NEB (04:49)
[2017-08-10 04:51] LABS: AUTOMATED NEUTROPHIL # 18.4 TH/MM3 (1.8-7.7); BASOPHIL # 0.2 TH/MM3 (0-0.2); BASOPHIL % 0.9 % (0.0-2.0); EOSINOPHIL # 0.6 TH/MM3 (0-0.4); EOSINOPHIL % 2.6 % (0.0-4.0); HEMATOCRIT 26.3 % (39.0-51.0); HEMOGLOBIN 8.5 GM/DL (13.0-17.0); LYMPHOCYTE # 1.1 TH/MM3 (1.0-4.8); MEAN CELL VOLUME 93.3 FL (80.0-100.0); MEAN CORPUSCULAR HEMOGLOBIN 30.3 PG (27.0-34.0); MEAN CORPUSCULAR HGB CONC 32.5 % (32.0-36.0); MONO % 8.9 % (0.0-8.0); NEUT % 82.6 % (16.0-70.0); PLATELET COUNT 433 TH/MM3 (150-450); RED BLOOD COUNT 2.82 MIL/MM3 (4.50-5.90); RED CELL DISTRIBUTION WIDTH 21.5 % (11.6-17.2); WHITE BLOOD COUNT 22.3 TH/MM3 (4.0-11.0)
[2017-08-10] MEDS: PANTOPRAZOLE SODIUM 40 MG VIAL IVP SCH (05:41)
[2017-08-10] MEDS: HEPARIN SODIUM - SQ 10,000 UNITS/ML VIAL SQ SCH ×3 (05:42→21:04)
[2017-08-10] MEDS: ACETAMINOPHEN 325 MG TAB PO PRN ×2 (05:42→20:47)
[2017-08-10] MEDS: SODIUM CHLORIDE 1 GRAM TAB PO SCH ×3 (05:42→22:03)
[2017-08-10 06:14] LABS: BICARBONATE 24.5 MEQ/L (21.0-32.0); CALCIUM 8.5 MG/DL (8.5-10.1); CREATININE 7.88 MG/DL (0.60-1.30)
--- NOTE | 2017-08-10 06:19 | RADRPT ---
EXAM DATE/TIME: 08/10/2017 05:19 [place] COMPARISON: CHEST SINGLE AP, August 09, 2017, 5:07. INDICATIONS : Respiratory distress. MEDICAL HISTORY : None. SURGICAL HISTORY : None. ENCOUNTER: Subsequent ACUITY: 3 weeks PAIN SCORE: Non-responsive. LOCATION: Bilateral chest FINDINGS: A single view of the chest demonstrates tracheostomy in good position. Small caliber right chest tube . NG coiled in stomach. No pneumothorax. Loculated pleural fluid and consolidation on the right stabl e. Slight improvement in left basilar consolidation. Also small caliber left chest tube without signi ficant pneumothorax. CONCLUSION: 1. Stable bilateral chest tubes without pneumothorax. Tracheostomy and NG unchanged. 2. Stable right-sided loculated fluid and consolidation. Slight improvement in left basilar consolida tion. Omari Moraes MD on August 10, 2017 at 6:15 Board Certified Radiologist. This report was verified electronically.
[2017-08-10 07:04] LABS: BANDS 1 % (0-6); BASOPHILS 1 % (0-2); LYMPHOCYTES 7 % (9-44); METAMYELOCYTES 2 % (0-1); MONOCYTES 5 % (0-8); NEUTROPHIL # MANUAL DIFF 18.5 TH/MM3 (1.8-7.7); POLYS (SEG NEUTROPHILS) 80 % (16-70)
[2017-08-10] MEDS: CHLORHEXIDINE 0.12% (ORAL KIT) 15 ML CUP MT SCH ×2 (07:52→19:46)
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
[2017-08-10] MEDS: DOCUSATE SODIUM 100 MG/10 ML UDC PO SCH ×2 (08:07→21:03)
[2017-08-10] MEDS: ARTIFICIAL TEARS OPTH OINT 3.5 APPLIC/3.5 GM TUBO EACH EYE SCH ×2 (08:07→21:00)
[2017-08-10] MEDS: BENEPROTEIN POWDER 1 PACK G-TUBE SCH ×3 (08:08→17:01)
[2017-08-10] MEDS: FUROSEMIDE 40 MG/4 ML VIAL IV PUSH SCH ×2 (08:08→17:04)
[2017-08-10] MEDS: LINEZOLID 600 MG PREMIX 300 ML IV SCH ×2 (08:08→21:03)
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
[2017-08-10] MEDS ORDERED: fentaNYL CITRATE 250 MCG/5 ML AMP ONE (09:50)
--- NOTE | 2017-08-10 10:57 | PD.RAD ---
Post Procedure Progress Note Pre Procedure Diagnosis: (1) Pulmonary contusion (2) Hemothorax on right Post Procedure Diagnosis: (1) Hemothorax on right (2) Pulmonary contusion Procedure Date: August 10, 2017 Supervising Radiologist: Dae Andrews Estimated blood loss: 3cc Anesthesia: Local, Conscious Sedation Plan of Activity Patient to Unit: Critical Care Patient Condition: Fair Additional Comments: New right apical chest tube placed into the loculated collection 200cc of old blood drained. Existing chest tube at right base upsized to 12 Iranian Tube placed to pleurivac at 40cm suction. Full dictated report to follow See PACS Report for procedural detail/treatment Dae Andrews MD August 10, 2017 10:57
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
[2017-08-10] MEDS: MEROPENEM IV SCH (12:53)
[2017-08-10] MEDS: QUEtiapine FUMARATE 25 MG TAB PO SCH ×2 (12:53→21:03)
[2017-08-10] MEDS: SODIUM CHLORIDE 0.9% IV SCH (12:53)
--- NOTE | 2017-08-10 14:30 | HHI.CCPN ---
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 Blood Gas Ventilator Setting PRVC/AC Blood Gas Inspired Oxygen 40 % Imaging Last 24 hours Impressions Chest X-Ray 08/10/17 0600 Signed Impressions: Service Date/Time: Thursday, August 10, 2017 05:19 - CONCLUSION: 1. Stable bilateral chest tubes without pneumothorax. Tracheostomy and NG unchanged. 2. Stable right-sided loculated fluid and consolidation. Slight improvement in left basilar consolidation. Omari Moraes MD Chest X-Ray 08/10/17 0000 Signed Impressions: Service Date/Time: Thursday, August 10, 2017 11:04 - CONCLUSION: 1. Well-positioned new right apical chest tube with improved loculated cephalad right pleural effusion. 2. Remainder of the exam is unchanged José Brady MD Disinhibition Score: 19.18 Aggression Score: 14.00 Lability Score: 14.00 Agitated Behavior Total Score: 17 Exam MANAGER COMMUNITY RELATIONS Patient is neurologically greatly improved and he is responding to simple commands trying to communicate I believe patient will neurologically recover very well provided extensive aggressive physical Occupational Therapy Hemodynamic/Cardiac Hemodynamically patient remained stable with decreasing leukocytosis and maintaining hemoglobin Pulmonary/Respiratory Hemodynamically he is stable Bilateral breath sounds decreased over the right side patient is down to 40% FiO2 and 10 of PEEP with improving PO2 FiO2 gradient Today he underwent positioning and insertion of chest tubes by interventional radiology Dr. Andrews Patient now has successful partial reexpansion of the left lower lobe with small and loculated apical pneumothorax and still significant atelectasis within the left lower lobe As far as the right setting concerned Dr. Andrews drain successfully about 300 cc of old blood from anterolateral aspect of the chest cavity but significant coagulum remains entrapping the right lower and middle lobes Patient will need thoracoscopy and evacuation of the same however right now he is PO2 FiO2 gradient is still noted in the position where I would take him to the operating room Once the pressure requirements decrease in PO2 FiO2 gradient is adequate we will go for right thoracoscopy and evacuation of hemothorax Abdomen/GI Nutrition Abdomen soft enteral feeds tolerated Renal/I&O Renal function is slowly improving with decreasing BUN and creatinine but as far as I can see right now patient will have permanent need for dialysis Vascular Central Line Catheter Date of Insertion: Jul 16, 2017 Line: Central Venous Catheter Side: Left Location: Subclavian Assessment and Plan Plan Start to wean the ventilator Follow ID recommendations for infectious issues CT scan abdomen and pelvis to rule out collection IR to place left-sided chest tube Continue DVT prophylaxis Continue to wean sedated agents Continue amantadine Agustina Hadley MD August 10, 2017 14:30
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
[2017-08-11] VITALS (15 sets, daily range): BP systolic 114–168; BP diastolic 58–81; PULSE 86–112; RESP 14–18; TEMP 99.1–99.5; O2SAT 98–100
[2017-08-11] MEDS: MEROPENEM IV SCH ×2 (00:01→12:47)
[2017-08-11] MEDS: SODIUM CHLORIDE 0.9% IV SCH ×2 (00:01→12:47)
[2017-08-11] MEDS: MIDAZOLAM 50 MG/NS 50 ML DRIP Premix IV PRN (00:11)
[2017-08-11] MEDS: oxyCODONE HCL ORAL CONC 5 MG/0.25 ML SYRINGE PO PRN ×5 (02:18→21:47)
[2017-08-11] MEDS: CHLORHEXIDINE GLUCONATE 2 % 1 PACK (2 CLOTHS) TOP SCH (04:41)
[2017-08-11 05:18] LABS: AUTOMATED NEUTROPHIL # 15.9 TH/MM3 (1.8-7.7); BASOPHIL # 0.2 TH/MM3 (0-0.2); BASOPHIL % 0.8 % (0.0-2.0); EOSINOPHIL # 0.4 TH/MM3 (0-0.4); EOSINOPHIL % 2.2 % (0.0-4.0); HEMATOCRIT 25.4 % (39.0-51.0); HEMOGLOBIN 8.1 GM/DL (13.0-17.0); LYMPH % 5.9 % (9.0-44.0); LYMPHOCYTE # 1.1 TH/MM3 (1.0-4.8); MEAN CELL VOLUME 93.1 FL (80.0-100.0); MEAN CORPUSCULAR HEMOGLOBIN 29.6 PG (27.0-34.0); MEAN CORPUSCULAR HGB CONC 31.8 % (32.0-36.0); MEAN PLATELET VOLUME 9.6 FL (7.0-11.0); MONO % 9.4 % (0.0-8.0); MONOCYTE # 1.8 TH/MM3 (0-0.9); NEUT % 81.7 % (16.0-70.0); PLATELET COUNT 438 TH/MM3 (150-450); RED BLOOD COUNT 2.73 MIL/MM3 (4.50-5.90); RED CELL DISTRIBUTION WIDTH 21.7 % (11.6-17.2); WHITE BLOOD COUNT 19.4 TH/MM3 (4.0-11.0)
[2017-08-11] MEDS: METOPROLOL TARTRATE 5 MG/5 ML VIAL IV PUSH SCH ×4 (05:18→21:46)
[2017-08-11] MEDS: HEPARIN SODIUM - SQ 10,000 UNITS/ML VIAL SQ SCH ×3 (05:18→21:47)
[2017-08-11] MEDS: PANTOPRAZOLE SODIUM 40 MG VIAL IVP SCH (05:18)
[2017-08-11] MEDS: SODIUM CHLORIDE 1 GRAM TAB PO SCH ×3 (05:19→21:46)
[2017-08-11 05:45] LABS: ALKALINE PHOSPHATASE 185 U/L (45-117); ALT (GPT) 32 U/L (12-78); AST (GOT) 54 U/L (15-37); BICARBONATE 24.8 MEQ/L (21.0-32.0); BLOOD UREA NITROGEN 122 MG/DL (7-18); CALCIUM 8.4 MG/DL (8.5-10.1); CHLORIDE 97 MEQ/L (98-107); CREATININE 8.02 MG/DL (0.60-1.30); GLOMERULAR FILTRATION RATE 8 ML/MIN (>89); GLUCOSE,RANDOM 93 MG/DL (74-106); SODIUM (NA) 137 MEQ/L (136-145); TOTAL BILIRUBIN ADULT 0.5 MG/DL (0.2-1.0); TOTAL PROTEIN 7.1 GM/DL (6.4-8.2)
--- NOTE | 2017-08-11 06:27 | RADRPT ---
EXAM DATE/TIME: 08/11/2017 05:28 [facility] COMPARISON: CHEST EXPIRATION ONLY, August 10, 2017, 11:04. INDICATIONS : Shortness of breath. MEDICAL HISTORY : None. SURGICAL HISTORY : None. ENCOUNTER: Subsequent ACUITY: 3 weeks PAIN SCORE: Non-responsive. LOCATION: Bilateral chest FINDINGS: Small caliber thoracostomy tube involving the right apex, right lung base, and left apex. Tracheostom y tube. Nasogastric tube with the tip in the fundus. No pneumothorax observed. Areas of consolidation scattered throughout the entire right lung and left lower lobe are unchanged. No effusions. Heart is normal in size. CONCLUSION: Unchanged bilateral pulmonary infiltrates. No pneumothoraces. Bob Gerardo Jr., MD on August 11, 2017 at 6:24 Board Certified Radiologist. This report was verified electronically.
[2017-08-11 07:27] LABS: BANDS 2 % (0-6); BASOPHILS 2 % (0-2); LYMPHOCYTES 4 % (9-44); METAMYELOCYTES 1 % (0-1); MONOCYTES 8 % (0-8); MYELOCYTES 1 % (0-0); NEUTROPHIL # MANUAL DIFF 16.7 TH/MM3 (1.8-7.7); POLYS (SEG NEUTROPHILS) 82 % (16-70)
[2017-08-11 07:28] LABS: TARGET CELLS 1+ (NORMAL)
[2017-08-11 07:29] LABS: HOWELL-JOLLY BODIES PRESENT (NONE SEEN)
[2017-08-11] MEDS: CHLORHEXIDINE 0.12% (ORAL KIT) 15 ML CUP MT SCH ×2 (08:00→21:46)
[2017-08-11] MEDS: BENEPROTEIN POWDER 1 PACK G-TUBE SCH ×3 (08:23→18:00)
[2017-08-11] MEDS: DOCUSATE SODIUM 100 MG/10 ML UDC PO SCH ×2 (08:23→20:02)
[2017-08-11] MEDS: FUROSEMIDE 40 MG/4 ML VIAL IV PUSH SCH ×2 (08:23→18:05)
[2017-08-11] MEDS: QUEtiapine FUMARATE 25 MG TAB PO SCH ×2 (08:23→21:46)
[2017-08-11] MEDS: ARTIFICIAL TEARS OPTH OINT 3.5 APPLIC/3.5 GM TUBO EACH EYE SCH ×2 (08:23→21:46)
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
--- NOTE | 2017-08-11 10:49 | HHI.CCPN ---
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 Pulse Resp B/P (MAP) Pulse Ox O2 Delivery O2 Flow Rate FiO2 08/11/17 10:36 99 40 08/11/17 08:00 99.2 98 18 168/71 (103) Intake and Output 08/11/17 08/11/17 08/12/17 08:00 16:00 00:00 Intake Total 970 ml Output Total 1337 ml Balance -367 ml Result Diagram: 08/11/17 0450 08/11/17 0450 Other Results Laboratory Tests Test 08/11/17 04:14 Blood Gas Puncture Site ART LINE Blood Gas Patient Temperature 98.6 Blood Gas HCO3 22 mmol/L (22-26) Blood Gas Base Excess -1.1 mmol/L (-2-2) Blood Gas Oxygen Saturation 96 % (90-100) Arterial Blood pH 7.45 (7.380-7.420) Arterial Blood Partial Pressure CO2 33 mmHg (38-42) Arterial Blood Partial Pressure O2 115 mmHg (61-120) Arterial Blood Oxygen Content 12.4 Vol % (12.0-20.0) Arterial Blood Carboxyhemoglobin 1.8 % (0-4) Arterial Blood Methemoglobin 1.1 % (0-2) Blood Gas Hemoglobin 9.0 G/DL (12.0-16.0) Oxygen Delivery Device VENT Blood Gas Ventilator Setting PRVC/AC Blood Gas Inspired Oxygen 40 % Imaging Last 24 hours Impressions Chest X-Ray 08/11/17 0000 Signed Impressions: Service Date/Time: Friday, August 11, 2017 05:28 - CONCLUSION: Unchanged bilateral pulmonary infiltrates. No pneumothoraces. Bob Gerardo Jr., MD Catheter Change 08/10/17 1131 Signed Impressions: Service Date/Time: Thursday, August 10, 2017 10:06 - CONCLUSION: Uncomplicated tube exchange as above. Dae Andrews MD Disinhibition Score: 24.50 Aggression Score: 14.00 Lability Score: 14.00 Agitated Behavior Total Score: 20 Exam DI[employer]ER Patient is gradually improving Neurologically he is more awake and alert not following commands however seems to be tracking moving all 4 extremities All sedation has been removed and patient remains on neuromodulation Hemodynamic/Cardiac Hemodynamically patient is stable Pulmonary/Respiratory Hemodynamically stable Bilateral breath sounds decreased over the right side but definitely improving Chest x-ray on the right side has definitely cleared up in last few days and will there is still patchy contained areas of hemothorax mainly anterior and lateral this is definitely decreased Excellent work by interventional radiology Remains on assist control ventilation now on 40% FiO2 with every improving PO2 FiO2 gradient Plan is to decrease the rate and PEEP to 8 cm water Depending on progression patient will likely go on Wednesday to the operating room for right sided thoracoscopy and evacuation of residual hematomas Abdomen/GI Nutrition Abdomen soft enteral feeds tolerated Renal/I&O Renal function remains precarious but patient is putting out some urine on his own Patient will remain most likely dependent on dialysis for more than a year and there is a good chance patient will require kidney transplant His neurologic deficit will definitely impaired the patient for prolonged period of time probably 2 years or longer and may never be fully functional again Vascular Central Line Catheter Date of Insertion: Jul 16, 2017 Line: Central Venous Catheter Side: Left Location: Subclavian Assessment and Plan Plan Start to wean the ventilator Follow ID recommendations for infectious issues CT scan abdomen and pelvis to rule out collection IR to place left-sided chest tube Continue DVT prophylaxis Continue to wean sedated agents Continue amantadine Attestation Critical care time 34 minute Agustina Hadley MD August 11, 2017 10:49
[2017-08-11] MEDS: REMOVE OLD DURAGESIC (FENTANYL) PATCH T-DERMAL SCH (11:00)
[2017-08-11] MEDS: LINEZOLID 600 MG PREMIX 300 ML IV SCH ×2 (12:22→21:45)
[2017-08-11] MEDS: fentaNYL 50 MCG/HR PATCH T-DERMAL SCH (12:36)
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
[2017-08-12] VITALS (17 sets, daily range): BP systolic 119–138; BP diastolic 57–75; PULSE 86–112; RESP 8–18; TEMP 98.5–99.2; O2SAT 99–100
[2017-08-12] MEDS: MEROPENEM IV SCH ×2 (00:40→11:20)
[2017-08-12] MEDS: SODIUM CHLORIDE 0.9% IV SCH ×2 (00:40→11:20)
[2017-08-12] MEDS: CHLORHEXIDINE GLUCONATE 2 % 1 PACK (2 CLOTHS) TOP SCH (00:40)
[2017-08-12] MEDS: METOPROLOL TARTRATE 5 MG/5 ML VIAL IV PUSH SCH ×4 (04:47→23:09)
[2017-08-12] MEDS: PANTOPRAZOLE SODIUM 40 MG VIAL IVP SCH (04:47)
[2017-08-12] MEDS: SODIUM CHLORIDE 1 GRAM TAB PO SCH ×3 (04:47→23:09)
[2017-08-12] MEDS: HEPARIN SODIUM - SQ 10,000 UNITS/ML VIAL SQ SCH ×3 (04:48→23:10)
[2017-08-12] MEDS: oxyCODONE HCL ORAL CONC 5 MG/0.25 ML SYRINGE PO PRN ×3 (04:48→23:11)
--- NOTE | 2017-08-12 05:17 | RADRPT ---
EXAM DATE/TIME: 08/12/2017 04:33 [facility] COMPARISON: CHEST SINGLE AP, August 10, 2017, 5:19. INDICATIONS : Short of breath. MEDICAL HISTORY : None. SURGICAL HISTORY : None. ENCOUNTER: Subsequent ACUITY: 3 weeks PAIN SCORE: Non-responsive. LOCATION: Bilateral chest FINDINGS: Interval placement of a small caliber chest tube within the right apex when compared to the prior jennifer dy. Left apical chest tube in right subpulmonic chest tubes remain. Loculated fluid again noted on th e right. This is smaller than the prior study. Scattered consolidation within the right lung has impr nurys somewhat particularly within the upper lobe. Left basilar consolidation is stable. Tracheostomy tube and nasogastric tube noted. Heart is normal in size. CONCLUSION: 1. Interval right apical chest tube placement with slight reduction in size of a loculated right effu steve. 2. Some improvement in the right lung infiltrate. 3. Stable left lower lobe infiltrate. Bob Gerardo Jr., MD on August 12, 2017 at 5:13 Board Certified Radiologist. This report was verified electronically.
[2017-08-12 06:38] LABS: ALBUMIN 2.1 GM/DL (3.4-5.0); ALKALINE PHOSPHATASE 172 U/L (45-117); ALT (GPT) 32 U/L (12-78); AST (GOT) 43 U/L (15-37); BICARBONATE 25.8 MEQ/L (21.0-32.0); BLOOD UREA NITROGEN 82 MG/DL (7-18); CALCIUM 8.8 MG/DL (8.5-10.1); CHLORIDE 97 MEQ/L (98-107); CREATININE 5.81 MG/DL (0.60-1.30); GLOMERULAR FILTRATION RATE 12 ML/MIN (>89); GLUCOSE,RANDOM 90 MG/DL (74-106); SODIUM (NA) 137 MEQ/L (136-145); TOTAL BILIRUBIN ADULT 0.6 MG/DL (0.2-1.0); TOTAL PROTEIN 7.3 GM/DL (6.4-8.2)
[2017-08-12 07:13] LABS: AUTOMATED NEUTROPHIL # 15.6 TH/MM3 (1.8-7.7); BASOPHIL # 0.2 TH/MM3 (0-0.2); BASOPHIL % 1.1 % (0.0-2.0); EOSINOPHIL # 0.4 TH/MM3 (0-0.4); EOSINOPHIL % 2.1 % (0.0-4.0); HEMATOCRIT 31.3 % (39.0-51.0); LYMPH % 7.2 % (9.0-44.0); LYMPHOCYTE # 1.4 TH/MM3 (1.0-4.8); MEAN CELL VOLUME 93.6 FL (80.0-100.0); MEAN CORPUSCULAR HEMOGLOBIN 29.8 PG (27.0-34.0); MEAN CORPUSCULAR HGB CONC 31.8 % (32.0-36.0); MONO % 10.8 % (0.0-8.0); MONOCYTE # 2.1 TH/MM3 (0-0.9); NEUT % 78.8 % (16.0-70.0); PLATELET COUNT 352 TH/MM3 (150-450); RED BLOOD COUNT 3.35 MIL/MM3 (4.50-5.90); WHITE BLOOD COUNT 19.8 TH/MM3 (4.0-11.0)
[2017-08-12] MEDS: LINEZOLID 600 MG PREMIX 300 ML IV SCH ×2 (08:00→20:13)
[2017-08-12] MEDS: BENEPROTEIN POWDER 1 PACK G-TUBE SCH ×3 (08:00→18:00)
[2017-08-12] MEDS: CHLORHEXIDINE 0.12% (ORAL KIT) 15 ML CUP MT SCH ×2 (08:00→19:45)
[2017-08-12] MEDS: ARTIFICIAL TEARS OPTH OINT 3.5 APPLIC/3.5 GM TUBO EACH EYE SCH ×2 (08:00→20:12)
[2017-08-12] MEDS: QUEtiapine FUMARATE 25 MG TAB PO SCH ×2 (08:01→20:13)
[2017-08-12] MEDS: FUROSEMIDE 40 MG/4 ML VIAL IV PUSH SCH ×2 (08:01→18:00)
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
[2017-08-12 08:45] LABS: BANDS 2 % (0-6); BASOPHILS 1 % (0-2); LYMPHOCYTES 13 % (9-44); METAMYELOCYTES 2 % (0-1); MONOCYTES 11 % (0-8); MYELOCYTES 3 % (0-0); NEUTROPHIL # MANUAL DIFF 14.9 TH/MM3 (1.8-7.7); POLYCHROMASIA 2.6 % (0.0-1.9); POLYS (SEG NEUTROPHILS) 68 % (16-70)
[2017-08-12] MEDS: RESP: ALBUTEROL 2.5 MG/IPRATROPIUM 0.5 MG NEB (PRN) NEB (09:07)
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
--- NOTE | 2017-08-12 16:31 | HHI.CCPN ---
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 This morning he is more awake alert tracking and communicating thumbs up yes and no Answers to simple questions appropriately with nodding Bilateral breath sounds and improved pulmonary function CT chest without contrast today and depending on the findings we will decide whether this patient needs right thoracoscopy and evacuation of hemothorax Objective Vital Signs Date Time Temp Pulse Resp B/P (MAP) Pulse Ox O2 Delivery O2 Flow Rate FiO2 08/12/17 09:01 100 35 5/17/18 06:00 86 08/12/17 04:00 98.8 8 124/63 (83) Intake and Output 08/12/17 08/12/17 08/13/17 08:00 16:00 00:00 Intake Total 707 ml Output Total 677 ml Balance 30 ml Result Diagram: 08/12/17 0430 08/12/17 0430 Other Results Laboratory Tests Test 08/12/17 03:02 Blood Gas Puncture Site RT RADIAL Blood Gas Patient Temperature 98.6 Blood Gas HCO3 27 mmol/L (22-26) Blood Gas Base Excess 2.8 mmol/L (-2-2) Blood Gas Oxygen Saturation 97 % (90-100) Arterial Blood pH 7.43 (7.380-7.420) Arterial Blood Partial Pressure CO2 41 mmHg (38-42) Arterial Blood Partial Pressure O2 149 mmHg (61-120) Arterial Blood Oxygen Content 14.8 Vol % (12.0-20.0) Arterial Blood Carboxyhemoglobin 1.8 % (0-4) Arterial Blood Methemoglobin 1.0 % (0-2) Blood Gas Hemoglobin 10.7 G/DL (12.0-16.0) Oxygen Delivery Device VENTILATOR Blood Gas Ventilator Setting COMMENT Blood Gas Inspired Oxygen 40 % Imaging Last 24 hours Impressions Chest X-Ray 08/12/17 0600 Signed Impressions: Service Date/Time: July 04:33 - CONCLUSION: 1. Interval right apical chest tube placement with slight reduction in size of a loculated right effusion. 2. Some improvement in the right lung infiltrate. 3. Stable left lower lobe infiltrate. Bob Gerardo Jr., MD Disinhibition Score: 24.50 Aggression Score: 14.00 Lability Score: 14.00 Agitated Behavior Total Score: 20 Exam [employer] More awake and alert today following simple commands and trying to communicate more Moves all 4 extremities although left arm release which is consistent with the nature and location of his neurologic injury Hemodynamic/Cardiac Hemodynamically stable Pulmonary/Respiratory Bilateral good breath sounds greatly improved PO2 FiO2 gradient On assist control with decreasing rate now to 40% FiO2 and 5 of PEEP Patient could be ready to go to CPAP however considering that we may be planning tomorrow thoracoscopy I will move this fast CT chest pending to see the remaining hemothorax and if it is indicated and valgus to perform thoracoscopy Abdomen/GI Nutrition Abdomen soft enteral feeds well tolerated Renal/I&O Renal function is gradually improving creatinine is down to 5.8 mg/dL which is great improvement Patient started with large amounts of urine which is very encouraging as far as the renal function recovery is concerned Vascular Central Line Catheter Date of Insertion: Jul 16, 2017 Line: Central Venous Catheter Side: Left Location: Subclavian Assessment and Plan Plan Start to wean the ventilator Follow ID recommendations for infectious issues CT scan abdomen and pelvis to rule out collection IR to place left-sided chest tube Continue DVT prophylaxis Continue to wean sedated agents Continue amantadine Attestation Based on CT of the chest will decide if patient needs thoracoscopy and if not, we will start weaning to extubate critical care time 40 minutes Critical care time 38 minute Agustina Hadley MD August 12, 2017 16:31
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
--- NOTE | 2017-08-12 22:55 | RADRPT ---
EXAM DATE/TIME: 08/12/2017 21:32 [facility] COMPARISON: CHEST SINGLE AP, August 12, 2017, 4:33. CT THORAX W/O CONTRAST, August 09, 2017, 14:20. INDICATIONS : Pulmonary disease, follow up hemothorax. RADIATION DOSE: 10.27 CTDIvol (mGy) MEDICAL HISTORY : None SURGICAL HISTORY : None. ENCOUNTER: Subsequent ACUITY: 1 month PAIN SCALE: Non-responsive LOCATION: chest TECHNIQUE: Volumetric scanning of the chest was performed. Using automated exposure control and adjustment of t he mA and/or kV according to patient size, radiation dose was kept as low as reasonably achievable to obtain optimal diagnostic quality images. DICOM format image data is available electronically for r eview and comparison. Follow-up recommendations for detected pulmonary nodules are based at a minimum on nodule size and pa tient risk factors according to Fleischner Society Guidelines. FINDINGS: LUNGS: There is a consolidation seen in the lower lobes bilaterally. There some cystic/cavitary change in th e right lower lobe. There is patchy consolidation seen in the superior right upper lobe and in the dooley perior anterior medial left upper lobe. PLEURAE: There are 2 right-sided chest tubes in place. There continues to be mild right pleural fluid. Some of the air seen at the right base is in the right pleural space. There is a minimal pneumothorax seen a t the anterior medial left upper lung. There is a mild left pleural effusion. MEDIASTINUM: Enlarged lymph nodes are seen in the right paratracheal, precarinal, subcarinal and right tracheobron chial region. AXILLAE: Within normal limits. No lymphadenopathy. MUSCULOSKELETAL: There is fracturing seen at the left scapula. No soft tissue calcification seen around the left scapu la and left shoulder region. Calcifications are seen in the intercostal regions on the right. Likely from prior injury. MISCELLANEOUS: The visualized upper abdominal organs demonstrate no acute abnormality. Calcifications are seen withi n the liver. The spleen is not seen. There is a mild amount of ascites seen in the upper abdomen. The re is a tracheostomy tube in place. CONCLUSION: 1. Dense consolidation seen in the lower lungs bilaterally. There are lesser degree of consolidation seen in the upper lobes bilaterally worse on the right. There some cavitary change at the right base. 2. 2 right-sided chest tubes with mild right pleural fluid. There is also some scattered loculated ai r within the inferior right pleural space. 3. Minimal left pneumothorax seen at the anterior medial left chest. There is a mild left pleural eff usion. Marvin Steele MD on August 12, 2017 at 22:47 Board Certified Radiologist. This report was verified electronically.
[2017-08-13] VITALS (16 sets, daily range): BP systolic 131–144; BP diastolic 65–78; PULSE 80–115; RESP 18–21; TEMP 98.7–99; O2SAT 94–100
[2017-08-13] MEDS: MEROPENEM IV SCH ×2 (00:50→11:50)
[2017-08-13] MEDS: SODIUM CHLORIDE 0.9% IV SCH ×2 (00:50→11:50)
[2017-08-13] MEDS: oxyCODONE HCL ORAL CONC 5 MG/0.25 ML SYRINGE PO PRN ×3 (03:35→16:40)
--- NOTE | 2017-08-13 04:04 | RADRPT ---
EXAM DATE/TIME: 08/13/2017 03:36 [facility] COMPARISON: CHEST SINGLE AP, August 12, 2017, 4:33. INDICATIONS : Infiltrates. MEDICAL HISTORY : None. SURGICAL HISTORY : None. ENCOUNTER: Subsequent ACUITY: 3 weeks PAIN SCORE: Non-responsive. LOCATION: Bilateral chest FINDINGS: No significant change. Bilateral pulmonary infiltrates persist. Bilateral thoracostomy tubes, tracheo stomy tube, and nasogastric tube. Heart is normal in size. No pneumothorax. Loculated fluid remains o n the right side. CONCLUSION: Unchanged exam. Bob Gerardo Jr., MD on August 13, 2017 at 4:02 Board Certified Radiologist. This report was verified electronically.
[2017-08-13 04:09] LABS: BASOPHIL # 0.2 TH/MM3 (0-0.2); BASOPHIL % 1.1 % (0.0-2.0); EOSINOPHIL # 0.4 TH/MM3 (0-0.4); EOSINOPHIL % 2.7 % (0.0-4.0); HEMATOCRIT 25.8 % (39.0-51.0); HEMOGLOBIN 8.4 GM/DL (13.0-17.0); LYMPH % 8.3 % (9.0-44.0); LYMPHOCYTE # 1.3 TH/MM3 (1.0-4.8); MEAN CELL VOLUME 93.7 FL (80.0-100.0); MEAN CORPUSCULAR HEMOGLOBIN 30.4 PG (27.0-34.0); MEAN CORPUSCULAR HGB CONC 32.5 % (32.0-36.0); MONO % 10.7 % (0.0-8.0); MONOCYTE # 1.7 TH/MM3 (0-0.9); NEUT % 77.2 % (16.0-70.0); PLATELET COUNT 480 TH/MM3 (150-450); RED BLOOD COUNT 2.76 MIL/MM3 (4.50-5.90); RED CELL DISTRIBUTION WIDTH 22.7 % (11.6-17.2); WHITE BLOOD COUNT 15.6 TH/MM3 (4.0-11.0)
[2017-08-13 04:36] LABS: ALT (GPT) 32 U/L (12-78); AST (GOT) 44 U/L (15-37); BICARBONATE 27.7 MEQ/L (21.0-32.0); BLOOD UREA NITROGEN 90 MG/DL (7-18); CALCIUM 8.7 MG/DL (8.5-10.1); CHLORIDE 100 MEQ/L (98-107); CREATININE 5.58 MG/DL (0.60-1.30); GLOMERULAR FILTRATION RATE 13 ML/MIN (>89); GLUCOSE,RANDOM 81 MG/DL (74-106); SODIUM (NA) 140 MEQ/L (136-145)
[2017-08-13 04:38] LABS: ALKALINE PHOSPHATASE 151 U/L (45-117); TOTAL BILIRUBIN ADULT 0.6 MG/DL (0.2-1.0); TOTAL PROTEIN 6.9 GM/DL (6.4-8.2)
[2017-08-13] MEDS: HEPARIN SODIUM - SQ 10,000 UNITS/ML VIAL SQ SCH ×3 (06:00→20:39)
[2017-08-13] MEDS: CHLORHEXIDINE GLUCONATE 2 % 1 PACK (2 CLOTHS) TOP SCH (06:58)
[2017-08-13] MEDS: PANTOPRAZOLE SODIUM 40 MG VIAL IVP SCH (06:59)
[2017-08-13] MEDS: SODIUM CHLORIDE 1 GRAM TAB PO SCH ×3 (06:59→20:39)
[2017-08-13] MEDS: METOPROLOL TARTRATE 5 MG/5 ML VIAL IV PUSH SCH ×4 (06:59→22:47)
[2017-08-13 08:12] LABS: BANDS 1 % (0-6); BASOPHILS 1 % (0-2); LYMPHOCYTES 2 % (9-44); METAMYELOCYTES 1 % (0-1); MONOCYTES 4 % (0-8); NEUTROPHIL # MANUAL DIFF 14.4 TH/MM3 (1.8-7.7); POLYS (SEG NEUTROPHILS) 90 % (16-70)
[2017-08-13 08:13] LABS: POLYCHROMASIA 2.1 % (0.0-1.9); TARGET CELLS 1+ (NORMAL)
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
[2017-08-13] MEDS: QUEtiapine FUMARATE 25 MG TAB PO SCH ×2 (08:26→20:39)
[2017-08-13] MEDS: CHLORHEXIDINE 0.12% (ORAL KIT) 15 ML CUP MT SCH ×2 (08:26→20:00)
[2017-08-13] MEDS: FUROSEMIDE 40 MG/4 ML VIAL IV PUSH SCH ×2 (08:27→17:37)
[2017-08-13] MEDS: EPOETIN ALFA 10,000 UNITS/ML VIAL IV PUSH PRN (08:43)
[2017-08-13] MEDS: GENTAMICIN SULFATE 20 MG/2 ML VIAL OTHER PRN (08:43)
[2017-08-13] MEDS: HEPARIN SODIUM - IV 10,000 UNITS/10 ML VIAL PRN (08:43)
[2017-08-13] MEDS: LINEZOLID 600 MG PREMIX 300 ML IV SCH ×2 (09:00→20:38)
[2017-08-13] MEDS: BENEPROTEIN POWDER 1 PACK G-TUBE SCH ×3 (09:00→17:38)
[2017-08-13] MEDS: ARTIFICIAL TEARS OPTH OINT 3.5 APPLIC/3.5 GM TUBO EACH EYE SCH ×2 (09:07→21:00)
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
[2017-08-13] MEDS ORDERED: BUPIVACAINE HCL PF 0.25% 30 ML VIAL ONE (11:45)
[2017-08-13] MEDS ORDERED: PROPOFOL 200 MG/20 ML AMP IV ONE (12:00)
[2017-08-13] MEDS ORDERED: PHENYLEPH/NS 1000 MCG/10 ML SYR IV ONE (12:00)
[2017-08-13] MEDS ORDERED: LIDOCAINE HCL 1% PF 5 ML SYRINGE OTHER ONE (12:00)
[2017-08-13] MEDS ORDERED: ROCURONIUM INJ 50 MG/5 ML SYRINGE IV PUSH ONE (12:00)
[2017-08-13] MEDS ORDERED: NORMOSOL R INJ 1,000 ML IV ONE (12:00)
[2017-08-13] MEDS ORDERED: CISATRACURIUM BESYLATE 20 MG/10 ML VIAL ONE (12:19)
[2017-08-13] MEDS ORDERED: MIDAZOLAM HCL 2 MG/2 ML VIAL ONE (15:08)
--- NOTE | 2017-08-13 16:01 | RADRPT ---
EXAM DATE/TIME: 08/13/2017 15:27 [place] COMPARISON: CT THORAX W/O CONTRAST, August 12, 2017, 21:32. CHEST SINGLE AP, August 13, 2017, 3:36. INDICATIONS : S/P thoracotomy. MEDICAL HISTORY : None. SURGICAL HISTORY : None. ENCOUNTER: Initial ACUITY: 1 day PAIN SCORE: Non-responsive. LOCATION: Bilateral chest FINDINGS: Tracheostomy tube and enteric tube identified. The side-port of the NG tube is at the expected locati on of the gastric cardia/EG junction. There is a left-sided chest tube as well as 2 right sided chest tubes. There is patchy bilateral consolidation identified. Right-sided effusion is noted. There is s ome lucency at the right mid to lower lung zone laterally likely related to hydropneumothorax. CONCLUSION: Postsurgical changes, right hydropneumothorax and bilateral consolidation. Ishaan Duarte MD on August 13, 2017 at 15:58 Board Certified Radiologist. This report was verified electronically.
[2017-08-13] MEDS: ACETAMINOPHEN 325 MG TAB PO PRN (16:40)
[2017-08-13] MEDS ORDERED: HYDROmorphone HCL PF 0.5 MG/0.5 ML SYRINGE IV PUSH ONE (17:15)
--- NOTE | 2017-08-13 19:06 | HHI.CCPN ---
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 This morning he is more awake alert tracking and communicating thumbs up yes and no Answers to simple questions appropriately with nodding Bilateral breath sounds and improved pulmonary function CT chest without contrast today and depending on the findings we will decide whether this patient needs right thoracoscopy and evacuation of hemothorax 08/13/2017 Patient more alert and awake tracking and moving arms and legs Does not follow commands but seems to be communicating with family little better Minimal movement in left arm Hemodynamically stable Bilateral breath sounds and drainage from small chest tubes is now decreased Remains on assist control ventilation 30% FiO2 and 5 of PEEP Patient underwent today thoracoscopy/mini thoracotomy with evacuation of anterolateral right chest hemothorax and placement of chest tubes Lung is now clearing up and patient doing well Abdomen is soft enteral feeds of tolerated Renal function is slowly improving and patient is putting out dilute urine although still requiring dialysis At this point I believe patient will regain his renal function fully in the time In next few days will wean patient and try to liberate him off the ventilator Objective Vital Signs Date Time Temp Pulse Resp B/P (MAP) Pulse Ox O2 Delivery O2 Flow Rate FiO2 08/13/17 15:51 94 30 08/13/17 10:00 85 08/13/17 08:00 98.8 21 138/72 (94) Intake and Output 08/13/17 08/13/17 08/14/17 08:00 16:00 00:00 Intake Total 523 ml 1100 ml Output Total 1335 ml 1775 ml Balance -812 ml -675 ml Result Diagram: 08/13/17 0326 08/13/17 1111 Other Results Laboratory Tests Test 08/13/17 05:34 Blood Gas Puncture Site LT RADIAL Blood Gas Patient Temperature 98.6 Blood Gas HCO3 27 mmol/L (22-26) Blood Gas Base Excess 3.9 mmol/L (-2-2) Blood Gas Oxygen Saturation 94 % (90-100) Arterial Blood pH 7.49 (7.380-7.420) Arterial Blood Partial Pressure CO2 36 mmHg (38-42) Arterial Blood Partial Pressure O2 80 mmHg (61-120) Arterial Blood Oxygen Content 11.4 Vol % (12.0-20.0) Arterial Blood Carboxyhemoglobin 2.2 % (0-4) Arterial Blood Methemoglobin 0.9 % (0-2) Blood Gas Hemoglobin 8.6 G/DL (12.0-16.0) Oxygen Delivery Device VENTILATOR Blood Gas Ventilator Setting SEE COMMENT Blood Gas Inspired Oxygen 30 % Imaging Last 24 hours Impressions Chest X-Ray 08/13/17 0600 Signed Impressions: Service Date/Time: Sunday, August 13, 2017 03:36 - CONCLUSION: Unchanged exam. Bob Gerardo Jr., MD Chest X-Ray 08/13/17 0000 Signed Impressions: Service Date/Time: Sunday, August 13, 2017 15:27 - CONCLUSION: Postsurgical changes, right hydropneumothorax and bilateral consolidation. Ishaan Duarte MD Disinhibition Score: 36.68 Aggression Score: 24.50 Lability Score: 14.00 Agitated Behavior Total Score: 28 Exam FERN GATHERER Patient more alert and awake tracking and moving arms and legs Does not follow commands but seems to be communicating with family little better Minimal movement in left arm Hemodynamic/Cardiac Hemodynamically patient is stable Pulmonary/Respiratory Bilateral breath sounds and drainage from small chest tubes is now decreased Remains on assist control ventilation 30% FiO2 and 5 of PEEP Patient underwent today thoracoscopy/mini thoracotomy with evacuation of anterolateral right chest hemothorax and placement of chest tubes Lung is now clearing up and patient doing well Abdomen/GI Nutrition Abdomen is soft enteral feeds of tolerated Renal/I&O Renal function is slowly improving and patient is putting out dilute urine although still requiring dialysis At this point I believe patient will regain his renal function fully in the time In next few days will wean patient and try to liberate him off the ventilator Vascular Central Line Catheter Date of Insertion: Jul 16, 2017 Line: Central Venous Catheter Side: Left Location: Subclavian Assessment and Plan Plan Start to wean the ventilator Follow ID recommendations for infectious issues CT scan abdomen and pelvis to rule out collection IR to place left-sided chest tube Continue DVT prophylaxis Continue to wean sedated agents Continue amantadine Attestation Critical care 38 minutes Agustina Hadley MD August 13, 2017 19:06
--- NOTE | 2017-08-13 20:09 | MP ---
cc: Agustina Hadley MD DATE OF OPERATION: 08/13/2017 DATE OF PROCEDURE: 08/13/2017 PREOPERATIVE DIAGNOSES: Right retained hemothorax, entrapment of the right lung, trauma to the right chest, traumatic brain injury. POSTOPERATIVE DIAGNOSES: Right retained hemothorax, entrapment of the right lung, trauma to the right chest, traumatic brain injury. PROCEDURE PERFORMED: Right thoracoscopy, mini thoracotomy, evacuation of right hemothorax with placement of chest tube. SURGEON: Agustina Hadley MD ANESTHESIA: General. ESTIMATED BLOOD LOSS: 100 mL. With evacuation about 400 mL of clotted blood from the right chest. COMPLICATIONS: With a vacation was 400 mL of clotted blood from the right chest. PROTOCOL PROCEDURE: The patient was prepped and draped in usual fashion and then a small incision is made in the fourth intercostal space mid axillary line. Through this, a port was placed and the camera inserted. There is large amount of clotted blood in the area and therefore suction Yankauer is inserted very gently and then a finger to create a small space to be able to place the camera. The problem is that the right lung cannot be dropped considering the patient has a tracheostomy, so we are doing this with both lungs up. Anesthesia is then instructed to stop the breathing for a second or two and then the camera is placed. It is obvious that the patient has a large retained hemothorax occupying the anterior and lateral portions of the upper chest. With a combination of irrigation and various instrumentations, attempt is made to remove this. This is a very thick, firm clot and does not really come out easily. Therefore, a small incision is made, measuring about 3 inches in the fourth intercostal space, deepened down and into the chest and small Tuffier rib retractor placed. Once this is done, the visualization is much better and then camera is used to visualize and various types of grasping instruments to evacuate the pieces of the clot; some of it is evacuated by finger dissection and some of it by instrument dissection. Copious irrigation is used. Finally, all the clot is removed. There is also some gelatinous fibrinous material present, which is also removed and sent. Area irrigated with copious amounts of saline. Then, two 32 [place]i chest tubes placed, one curved, one straight, which are sutured with 0 silk. Incision closed in layers with #1 Vicryl and 4-0 Monocryl, benzoin and Steri-Strips. The patient tolerated the procedure well. MD COURTNEY Muñoz/BERNARDINO , 07:13 PM , 08:08 PM
[2017-08-13] MEDS: HYDROmorphone HCL PF 0.5 MG/0.5 ML SYRINGE IV PRN (20:38)
[2017-08-14] VITALS (15 sets, daily range): BP systolic 124–145; BP diastolic 57–85; PULSE 57–126; RESP 15–20; TEMP 97.8–99.5; O2SAT 95–100
[2017-08-14] MEDS: HYDROmorphone HCL PF 0.5 MG/0.5 ML SYRINGE IV PRN ×6 (01:25→14:50)
[2017-08-14] MEDS: CHLORHEXIDINE GLUCONATE 2 % 1 PACK (2 CLOTHS) TOP SCH (04:00)
--- NOTE | 2017-08-14 04:48 | RADRPT ---
EXAM DATE/TIME: 08/14/2017 03:34 [facility] COMPARISON: CHEST SINGLE AP, August 13, 2017, 15:27. INDICATIONS : Evaluate for hemathorax MEDICAL HISTORY : None. SURGICAL HISTORY : None. ENCOUNTER: Subsequent ACUITY: 3 weeks PAIN SCORE: Non-responsive. LOCATION: Bilateral chest FINDINGS: A single view of the chest demonstrates tracheostomy in good position. 2 right-sided chest tubes and one left chest tube without pneumothorax. There is some persistent loculated fluid on the right. Bila teral mostly basilar airspace disease similar to August 13. Nasogastric tube enters stomach. CONCLUSION: 1. Bilateral chest tubes without pneumothorax. Stable exam compared with August 13. Omari Moraes MD on August 14, 2017 at 4:45 Board Certified Radiologist. This report was verified electronically.
[2017-08-14] MEDS: PANTOPRAZOLE SODIUM 40 MG VIAL IVP SCH (06:05)
[2017-08-14] MEDS: SODIUM CHLORIDE 1 GRAM TAB PO SCH ×3 (06:06→21:26)
[2017-08-14] MEDS: METOPROLOL TARTRATE 5 MG/5 ML VIAL IV PUSH SCH ×4 (06:06→23:37)
[2017-08-14] MEDS: HEPARIN SODIUM - SQ 10,000 UNITS/ML VIAL SQ SCH ×3 (06:06→21:26)
[2017-08-14 06:16] LABS: AUTOMATED NEUTROPHIL # 9.6 TH/MM3 (1.8-7.7); BASOPHIL # 0.2 TH/MM3 (0-0.2); BASOPHIL % 1.7 % (0.0-2.0); EOSINOPHIL # 0.3 TH/MM3 (0-0.4); EOSINOPHIL % 2.1 % (0.0-4.0); HEMATOCRIT 25.2 % (39.0-51.0); HEMOGLOBIN 8.1 GM/DL (13.0-17.0); LYMPH % 9.4 % (9.0-44.0); LYMPHOCYTE # 1.2 TH/MM3 (1.0-4.8); MEAN CELL VOLUME 94.2 FL (80.0-100.0); MEAN CORPUSCULAR HEMOGLOBIN 30.5 PG (27.0-34.0); MEAN CORPUSCULAR HGB CONC 32.4 % (32.0-36.0); MEAN PLATELET VOLUME 8.4 FL (7.0-11.0); MONO % 11.4 % (0.0-8.0); MONOCYTE # 1.5 TH/MM3 (0-0.9); NEUT % 75.4 % (16.0-70.0); PLATELET COUNT 497 TH/MM3 (150-450); RED BLOOD COUNT 2.67 MIL/MM3 (4.50-5.90); RED CELL DISTRIBUTION WIDTH 22.9 % (11.6-17.2); WHITE BLOOD COUNT 12.7 TH/MM3 (4.0-11.0)
[2017-08-14 06:48] LABS: ALKALINE PHOSPHATASE 143 U/L (45-117); ALT (GPT) 25 U/L (12-78); AST (GOT) 37 U/L (15-37); BICARBONATE 28.8 MEQ/L (21.0-32.0); BLOOD UREA NITROGEN 62 MG/DL (7-18); CHLORIDE 101 MEQ/L (98-107); CREATININE 3.83 MG/DL (0.60-1.30); GLOMERULAR FILTRATION RATE 20 ML/MIN (>89); GLUCOSE,RANDOM 97 MG/DL (74-106); PHOSPHORUS 6.2 MG/DL (2.5-4.9); SODIUM (NA) 141 MEQ/L (136-145); TOTAL BILIRUBIN ADULT 0.6 MG/DL (0.2-1.0); TOTAL PROTEIN 6.8 GM/DL (6.4-8.2)
[2017-08-14] MEDS: CHLORHEXIDINE 0.12% (ORAL KIT) 15 ML CUP MT SCH ×2 (08:00→20:00)
[2017-08-14 08:10] LABS: HOWELL-JOLLY BODIES PRESENT (NONE SEEN); LYMPHOCYTES 12 % (9-44); METAMYELOCYTES 1 % (0-1); MONOCYTES 8 % (0-8); NEUTROPHIL # MANUAL DIFF 9.9 TH/MM3 (1.8-7.7); POLYS (SEG NEUTROPHILS) 77 % (16-70)
[2017-08-14] MEDS: FUROSEMIDE 40 MG/4 ML VIAL IV PUSH SCH ×2 (08:25→17:18)
[2017-08-14] MEDS: QUEtiapine FUMARATE 25 MG TAB PO SCH ×2 (08:26→21:26)
[2017-08-14] MEDS: LINEZOLID 600 MG PREMIX 300 ML IV SCH ×2 (08:26→21:00)
[2017-08-14] MEDS: ARTIFICIAL TEARS OPTH OINT 3.5 APPLIC/3.5 GM TUBO EACH EYE SCH ×2 (08:26→21:00)
[2017-08-14] MEDS: BENEPROTEIN POWDER 1 PACK G-TUBE SCH ×3 (09:00→17:18)
[2017-08-14] MEDS: SODIUM CHLORIDE 0.9% IV SCH ×4 (12:18→23:37)
[2017-08-14] MEDS: MEROPENEM IV SCH ×4 (12:18→23:37)
[2017-08-14] MEDS: fentaNYL 50 MCG/HR PATCH T-DERMAL SCH (12:19)
[2017-08-14] MEDS: REMOVE OLD DURAGESIC (FENTANYL) PATCH T-DERMAL SCH (12:19)
[2017-08-14] MEDS: oxyCODONE HCL ORAL CONC 5 MG/0.25 ML SYRINGE PO PRN ×3 (12:34→21:27)
--- NOTE | 2017-08-14 14:03 | HHI.CCPN ---
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 This morning he is more awake alert tracking and communicating thumbs up yes and no Answers to simple questions appropriately with nodding Bilateral breath sounds and improved pulmonary function CT chest without contrast today and depending on the findings we will decide whether this patient needs right thoracoscopy and evacuation of hemothorax 08/13/2017 Patient more alert and awake tracking and moving arms and legs Does not follow commands but seems to be communicating with family little better Minimal movement in left arm Hemodynamically stable Bilateral breath sounds and drainage from small chest tubes is now decreased Remains on assist control ventilation 30% FiO2 and 5 of PEEP Patient underwent today thoracoscopy/mini thoracotomy with evacuation of anterolateral right chest hemothorax and placement of chest tubes Lung is now clearing up and patient doing well Abdomen is soft enteral feeds of tolerated Renal function is slowly improving and patient is putting out dilute urine although still requiring dialysis At this point I believe patient will regain his renal function fully in the time In next few days will wean patient and try to liberate him off the ventilator 08/14/2017 Patient doing well overall at this time He is awake alert somewhat disoriented but response to simple questions tracks and communicates Hemodynamically stable Status post right thoracoscopy and mini thoracotomy evacuation of huge amount of clotted blood with a reexpansion of the right upper lobe of the lung No air leak noted in the chest tubes on either right or the left side Serosanguineous drainage from the right side Patient will be placed on CPAP trials at this point considering this PO2 FiO2 gradient is adequate In the next few days patient will be liberated from the ventilator Renal function is improving and this is extremely encouraging sign with patient putting out good amounts of urine Patient's ATN is now resolving and he should fully recover his renal function Objective Vital Signs Date Time Temp Pulse Resp B/P (MAP) Pulse Ox O2 Delivery O2 Flow Rate FiO2 08/14/17 12:00 99.3 126 20 140/85 (103) 98 08/14/17 11:42 30 Intake and Output 08/14/17 08/14/17 08/15/17 08:00 16:00 00:00 Intake Total 265 ml 300 ml Output Total 995.0 ml Balance -730.0 ml 300 ml Result Diagram: 08/14/17 0544 08/14/17 0544 Other Results Laboratory Tests Test 08/14/17 05:29 Blood Gas Puncture Site LT RADIAL Blood Gas Patient Temperature 98.6 Blood Gas HCO3 29 mmol/L (22-26) Blood Gas Base Excess 5.9 mmol/L (-2-2) Blood Gas Oxygen Saturation 91 % (90-100) Arterial Blood pH 7.53 (7.380-7.420) Arterial Blood Partial Pressure CO2 34 mmHg (38-42) Arterial Blood Partial Pressure O2 64 mmHg (61-120) Arterial Blood Oxygen Content 10.5 Vol % (12.0-20.0) Arterial Blood Carboxyhemoglobin 2.6 % (0-4) Arterial Blood Methemoglobin 0.9 % (0-2) Blood Gas Hemoglobin 8.2 G/DL (12.0-16.0) Oxygen Delivery Device VENTILATOR Blood Gas Ventilator Setting PRVC/AC Blood Gas Inspired Oxygen 30 % Imaging Last 24 hours Impressions Chest X-Ray 08/14/17 0600 Signed Impressions: Service Date/Time: Monday, August 14, 2017 03:34 - CONCLUSION: 1. Bilateral chest tubes without pneumothorax. Stable exam compared with August 13. 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 Patient doing well overall at this time He is awake alert somewhat disoriented but response to simple questions tracks and communicates Hemodynamic/Cardiac Hemodynamically remained stable Pulmonary/Respiratory Hemodynamically stable Status post right thoracoscopy and mini thoracotomy evacuation of huge amount of clotted blood with a reexpansion of the right upper lobe of the lung No air leak noted in the chest tubes on either right or the left side Serosanguineous drainage from the right side Patient will be placed on CPAP trials at this point considering this PO2 FiO2 gradient is adequate In the next few days patient will be liberated from the ventilator Abdomen/GI Nutrition Abdomen soft diet as tolerated Renal/I&O Renal function is improving and this is extremely encouraging sign with patient putting out good amounts of urine Patient's ATN is now resolving and he should fully recover his renal function Vascular Central Line Catheter Date of Insertion: Jul 16, 2017 Line: Central Venous Catheter Side: Left Location: Subclavian Assessment and Plan Plan Start to wean the ventilator Follow ID recommendations for infectious issues CT scan abdomen and pelvis to rule out collection IR to place left-sided chest tube Continue DVT prophylaxis Continue to wean sedated agents Continue amantadine Attestation Critical care 32 minutes Agustina Hadley MD August 14, 2017 14:03
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
[2017-08-14] MEDS ORDERED: POTASSIUM CHLOR 20 MEQ PREMIX 100 ML IV ONE (16:30)
[2017-08-14] MEDS: diphenhydrAMINE HCL 25 MG CAP PO PRN (23:37)
[2017-08-15] VITALS (14 sets, daily range): BP systolic 134–155; BP diastolic 61–87; PULSE 76–112; RESP 18–21; TEMP 98.2–99.9; O2SAT 95–100
[2017-08-15] MEDS: oxyCODONE HCL ORAL CONC 5 MG/0.25 ML SYRINGE PO PRN ×5 (03:15→21:11)
[2017-08-15] MEDS: ACETAMINOPHEN 325 MG TAB PO PRN ×3 (03:15→23:34)
[2017-08-15] MEDS: CHLORHEXIDINE GLUCONATE 2 % 1 PACK (2 CLOTHS) TOP SCH (03:22)
[2017-08-15] MEDS: METOPROLOL TARTRATE 5 MG/5 ML VIAL IV PUSH SCH ×4 (05:07→23:35)
[2017-08-15] MEDS: HEPARIN SODIUM - SQ 10,000 UNITS/ML VIAL SQ SCH ×3 (05:07→21:11)
[2017-08-15] MEDS: SODIUM CHLORIDE 1 GRAM TAB PO SCH ×3 (05:07→21:11)
--- NOTE | 2017-08-15 06:38 | RADRPT ---
EXAM DATE/TIME: 08/15/2017 05:41 [facility] COMPARISON: CHEST SINGLE AP, August 14, 2017, 3:34. INDICATIONS : Evaluate for hemathorax MEDICAL HISTORY : None. SURGICAL HISTORY : None. ENCOUNTER: Subsequent ACUITY: 3 weeks PAIN SCORE: Non-responsive. LOCATION: Bilateral chest FINDINGS: Tracheostomy in good position. NG tip in stomach. 2 right-sided chest tubes and one left chest tube w ithout significant pneumothorax. Patchy airspace disease in both lungs is similar to prior exam. Hear t size within normal limits. CONCLUSION: 1. Stable exam since August 14 with support apparatus in good position. Omari Moraes MD on August 15, 2017 at 6:36 Board Certified Radiologist. This report was verified electronically.
[2017-08-15 07:16] LABS: RED BLOOD COUNT 2.57 MIL/MM3 (4.50-5.90); WHITE BLOOD COUNT 13.7 TH/MM3 (4.0-11.0)
[2017-08-15 07:17] LABS: AUTOMATED NEUTROPHIL # 9.7 TH/MM3 (1.8-7.7); BASOPHIL # 0.3 TH/MM3 (0-0.2); BASOPHIL % 1.9 % (0.0-2.0); EOSINOPHIL # 0.4 TH/MM3 (0-0.4); EOSINOPHIL % 2.9 % (0.0-4.0); HEMATOCRIT 24.1 % (39.0-51.0); LYMPHOCYTE # 1.8 TH/MM3 (1.0-4.8); MEAN CELL VOLUME 93.9 FL (80.0-100.0); MEAN CORPUSCULAR HEMOGLOBIN 31.2 PG (27.0-34.0); MEAN CORPUSCULAR HGB CONC 33.3 % (32.0-36.0); MEAN PLATELET VOLUME 8.4 FL (7.0-11.0); MONO % 11.5 % (0.0-8.0); MONOCYTE # 1.6 TH/MM3 (0-0.9); NEUT % 70.7 % (16.0-70.0); PLATELET COUNT 562 TH/MM3 (150-450); RED CELL DISTRIBUTION WIDTH 21.3 % (11.6-17.2)
[2017-08-15 07:38] LABS: BICARBONATE 32.5 MEQ/L (21.0-32.0); CALCIUM 9.5 MG/DL (8.5-10.1); CREATININE 3.3 MG/DL (0.60-1.30)
[2017-08-15] MEDS: CHLORHEXIDINE 0.12% (ORAL KIT) 15 ML CUP MT SCH ×2 (08:00→20:00)
[2017-08-15] MEDS: POTASSIUM CHLOR 20 MEQ PREMIX 100 ML IV SCH ×4 (08:10→14:21)
[2017-08-15] MEDS: BENEPROTEIN POWDER 1 PACK G-TUBE SCH ×3 (08:32→18:00)
[2017-08-15] MEDS: LINEZOLID 600 MG PREMIX 300 ML IV SCH ×2 (08:32→20:03)
[2017-08-15] MEDS: ARTIFICIAL TEARS OPTH OINT 3.5 APPLIC/3.5 GM TUBO EACH EYE SCH ×2 (08:32→20:03)
[2017-08-15] MEDS: QUEtiapine FUMARATE 25 MG TAB PO SCH ×2 (09:00→20:03)
[2017-08-15] MEDS: ALPRAZolam 0.25 MG TAB PO PRN ×2 (10:21→20:03)
[2017-08-15] MEDS: NYSTATIN 100,000 UNIT/GM CREAM 15 GM TOPICAL SCH ×2 (11:06→20:03)
[2017-08-15] MEDS: FUROSEMIDE 40 MG/4 ML VIAL IV PUSH SCH ×2 (11:23→18:00)
--- NOTE | 2017-08-15 11:30 | HHI.CCPN ---
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 This morning he is more awake alert tracking and communicating thumbs up yes and no Answers to simple questions appropriately with nodding Bilateral breath sounds and improved pulmonary function CT chest without contrast today and depending on the findings we will decide whether this patient needs right thoracoscopy and evacuation of hemothorax 08/13/2017 Patient more alert and awake tracking and moving arms and legs Does not follow commands but seems to be communicating with family little better Minimal movement in left arm Hemodynamically stable Bilateral breath sounds and drainage from small chest tubes is now decreased Remains on assist control ventilation 30% FiO2 and 5 of PEEP Patient underwent today thoracoscopy/mini thoracotomy with evacuation of anterolateral right chest hemothorax and placement of chest tubes Lung is now clearing up and patient doing well Abdomen is soft enteral feeds of tolerated Renal function is slowly improving and patient is putting out dilute urine although still requiring dialysis At this point I believe patient will regain his renal function fully in the time In next few days will wean patient and try to liberate him off the ventilator 08/14/2017 Patient doing well overall at this time He is awake alert somewhat disoriented but response to simple questions tracks and communicates Hemodynamically stable Status post right thoracoscopy and mini thoracotomy evacuation of huge amount of clotted blood with a reexpansion of the right upper lobe of the lung No air leak noted in the chest tubes on either right or the left side Serosanguineous drainage from the right side Patient will be placed on CPAP trials at this point considering this PO2 FiO2 gradient is adequate In the next few days patient will be liberated from the ventilator Renal function is improving and this is extremely encouraging sign with patient putting out good amounts of urine Patient's ATN is now resolving and he should fully recover his renal function 08/15/2017 Patient is definitely improving This morning he is awake alert oriented communicating very well moving 3 out of 4 extremities with clearly plegia of the left arm Hemodynamically stable On CPAP doing really well will switch to trach collar/T piece and see how patient does If he does well with from the ventilator Objective Vital Signs Date Time Temp Pulse Resp B/P (MAP) Pulse Ox O2 Delivery O2 Flow Rate FiO2 08/15/17 09:18 30 08/15/17 09:15 98 08/15/17 08:00 77 08/15/17 08:00 99.9 18 134/67 (89) Intake and Output 08/15/17 08/15/17 08/16/17 08:00 16:00 00:00 Intake Total 587 ml 400 ml Output Total 730.0 ml Balance -143.0 ml 400 ml Result Diagram: 08/15/17 0539 08/15/17 0559 Other Results Laboratory Tests Test 08/15/17 06:11 Blood Gas Puncture Site LT BRACHIAL Blood Gas Patient Temperature 98.6 Blood Gas HCO3 32 mmol/L (22-26) Blood Gas Base Excess 8.4 mmol/L (-2-2) Blood Gas Oxygen Saturation 94 % (90-100) Arterial Blood pH 7.52 (7.380-7.420) Arterial Blood Partial Pressure CO2 39 mmHg (38-42) Arterial Blood Partial Pressure O2 77 mmHg (61-120) Arterial Blood Oxygen Content 10.9 Vol % (12.0-20.0) Arterial Blood Carboxyhemoglobin 2.1 % (0-4) Arterial Blood Methemoglobin 0.7 % (0-2) Blood Gas Hemoglobin 8.1 G/DL (12.0-16.0) Oxygen Delivery Device VENTILATOR Blood Gas Ventilator Setting Blood Gas Inspired Oxygen 30 % Imaging Last 24 hours Impressions Chest X-Ray 08/15/17 0600 Signed Impressions: Service Date/Time: Tuesday, August 15, 2017 05:41 - CONCLUSION: 1. Stable exam since August 14 with support apparatus in good position. Omari Moraes MD Disinhibition Score: 21.00 Aggression Score: 14.00 Lability Score: 14.00 Agitated Behavior Total Score: 18 Exam [employer] Awake alert more oriented communicating very well Hemodynamic/Cardiac Hemodynamically remains stable Pulmonary/Respiratory On CPAP doing really well will switch to trach collar/T piece and see how patient does If he does well with from the ventilator Left chest tube to be removed today On the right side patient has 2 large chest tubes which are draining serosanguineous fluid chest x-ray reveals clearing up of both lungs and this is consistent with patient's clinical status Abdomen/GI Nutrition Abdomen soft Renal/I&O Great work by nephrology Dr. Hebert. Patient's renal function is returning creatinine coming down every day Patient putting out good urine We will replace some of the potassium at this time Vascular Central Line Catheter Date of Insertion: Jul 16, 2017 Line: Central Venous Catheter Side: Left Location: Subclavian Assessment and Plan Plan Start to wean the ventilator Follow ID recommendations for infectious issues CT scan abdomen and pelvis to rule out collection IR to place left-sided chest tube Continue DVT prophylaxis Continue to wean sedated agents Continue amantadine Attestation Critical care time 36 minutes Agustina Hadley MD August 15, 2017 11:30
[2017-08-15] MEDS: SODIUM CHLORIDE 0.9% IV SCH ×2 (11:34→23:34)
[2017-08-15] MEDS: MEROPENEM IV SCH ×2 (11:34→23:34)
[2017-08-15] MEDS: diphenhydrAMINE HCL 25 MG CAP PO PRN ×3 (11:55→23:36)
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
[2017-08-15] MEDS ORDERED: POTASSIUM CHLORIDE INJ 40 MEQ in SODIUM CHLORID 0.9% 500 ML INJ 500 ML IV-CENTRAL ONE (15:45)
[2017-08-16] VITALS (17 sets, daily range): BP systolic 136–146; BP diastolic 70–85; PULSE 78–110; RESP 12–20; TEMP 97.6–98.8; O2SAT 96–100
[2017-08-16] MEDS: oxyCODONE HCL ORAL CONC 5 MG/0.25 ML SYRINGE PO PRN ×4 (01:01→21:57)
[2017-08-16] MEDS: CHLORHEXIDINE GLUCONATE 2 % 1 PACK (2 CLOTHS) TOP SCH (03:12)
[2017-08-16] MEDS: RESP: ALBUTEROL 2.5 MG/IPRATROPIUM 0.5 MG NEB (PRN) NEB (03:46)
[2017-08-16] MEDS: HEPARIN SODIUM - SQ 10,000 UNITS/ML VIAL SQ SCH ×3 (04:29→21:15)
[2017-08-16] MEDS: METOPROLOL TARTRATE 5 MG/5 ML VIAL IV PUSH SCH ×4 (04:29→21:14)
[2017-08-16 05:06] LABS: AUTOMATED NEUTROPHIL # 12.7 TH/MM3 (1.8-7.7); BASOPHIL # 0.2 TH/MM3 (0-0.2); BASOPHIL % 1.4 % (0.0-2.0); EOSINOPHIL # 0.4 TH/MM3 (0-0.4); EOSINOPHIL % 2.2 % (0.0-4.0); HEMOGLOBIN 9.2 GM/DL (13.0-17.0); LYMPH % 9.4 % (9.0-44.0); LYMPHOCYTE # 1.5 TH/MM3 (1.0-4.8); MEAN CELL VOLUME 96.2 FL (80.0-100.0); MEAN CORPUSCULAR HEMOGLOBIN 30.4 PG (27.0-34.0); MEAN CORPUSCULAR HGB CONC 31.6 % (32.0-36.0); MEAN PLATELET VOLUME 8.2 FL (7.0-11.0); MONO % 9.1 % (0.0-8.0); MONOCYTE # 1.5 TH/MM3 (0-0.9); NEUT % 77.9 % (16.0-70.0); PLATELET COUNT 628 TH/MM3 (150-450); RED BLOOD COUNT 3.02 MIL/MM3 (4.50-5.90); RED CELL DISTRIBUTION WIDTH 22.1 % (11.6-17.2); WHITE BLOOD COUNT 16.3 TH/MM3 (4.0-11.0)
--- NOTE | 2017-08-16 05:26 | RADRPT ---
EXAM DATE/TIME: 08/16/2017 03:48 [place] COMPARISON: CHEST SINGLE AP, August 15, 2017, 5:41. INDICATIONS : Short of breath. Followup right hemothorax status post chest tube placement. MEDICAL HISTORY : None. SURGICAL HISTORY : None. ENCOUNTER: Subsequent ACUITY: 2 weeks PAIN SCORE: 0/10 LOCATION: Bilateral chest FINDINGS: A single AP portable semierect view of the chest was obtained and again demonstrates 2 right-sided ch est tubes in place with no pneumothorax. Abnormal opacity is again noted along portions of the right upper lateral chest wall. There is hazy opacity throughout the right lung without significant change. Hazy opacity remains in the left lung base and infrahilar region. The tracheostomy tube and nasogast osei tube remain in place. Multiple overlying electrocardiogram leads are present. CONCLUSION: 1. No significant change. 2. 2 right-sided chest tubes remain in place with abnormal opacity in the right lung and focal opacit y along the right upper lateral pleura. Sam Foster MD on August 16, 2017 at 5:22 Board Certified Radiologist. This report was verified electronically.
[2017-08-16 05:39] LABS: ALBUMIN 2.4 GM/DL (3.4-5.0); ALKALINE PHOSPHATASE 162 U/L (45-117); ALT (GPT) 40 U/L (12-78); AST (GOT) 57 U/L (15-37); BICARBONATE 33.4 MEQ/L (21.0-32.0); BLOOD UREA NITROGEN 55 MG/DL (7-18); CALCIUM 9.9 MG/DL (8.5-10.1); CHLORIDE 102 MEQ/L (98-107); CREATININE 2.72 MG/DL (0.60-1.30); GLOMERULAR FILTRATION RATE 29 ML/MIN (>89); GLUCOSE,RANDOM 101 MG/DL (74-106); PHOSPHORUS 4.1 MG/DL (2.5-4.9); SODIUM (NA) 145 MEQ/L (136-145); TOTAL BILIRUBIN ADULT 0.6 MG/DL (0.2-1.0); TOTAL PROTEIN 7.6 GM/DL (6.4-8.2)
[2017-08-16] MEDS: ACETAMINOPHEN 325 MG TAB PO PRN ×2 (05:59→10:27)
[2017-08-16] MEDS: SODIUM CHLORIDE 1 GRAM TAB PO SCH ×3 (05:59→21:14)
[2017-08-16] MEDS ORDERED: ONDANSETRON ODT 4 MG TAB PO PRN (06:15)
[2017-08-16 06:53] LABS: BASOPHILS 2 % (0-2); LYMPHOCYTES 4 % (9-44); MONOCYTES 7 % (0-8); MYELOCYTES 1 % (0-0); POLYS (SEG NEUTROPHILS) 85 % (16-70); TARGET CELLS 1+ (NORMAL)
[2017-08-16] MEDS: ARTIFICIAL TEARS OPTH OINT 3.5 APPLIC/3.5 GM TUBO EACH EYE SCH ×2 (07:49→21:06)
[2017-08-16] MEDS: CHLORHEXIDINE 0.12% (ORAL KIT) 15 ML CUP MT SCH ×2 (08:00→19:52)
[2017-08-16] MEDS: BENEPROTEIN POWDER 1 PACK G-TUBE SCH ×3 (08:05→18:00)
[2017-08-16] MEDS: LINEZOLID 600 MG PREMIX 300 ML IV SCH (08:06)
[2017-08-16] MEDS: QUEtiapine FUMARATE 25 MG TAB PO SCH ×3 (08:06→18:06)
[2017-08-16] MEDS: FUROSEMIDE 40 MG/4 ML VIAL IV PUSH SCH (08:06)
[2017-08-16] MEDS: NYSTATIN 100,000 UNIT/GM CREAM 15 GM TOPICAL SCH ×2 (08:06→21:06)
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
[2017-08-16] MEDS: POTASSIUM CHLOR 20 MEQ PREMIX 100 ML IV SCH ×2 (11:00→11:20)
[2017-08-16] MEDS: MEROPENEM IV SCH (13:54)
[2017-08-16] MEDS: SODIUM CHLORIDE 0.9% IV SCH (13:54)
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
[2017-08-16] MEDS ORDERED: HALOPERIDOL LACTATE 5 MG/ML AMP IV PRN (14:15)
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
--- NOTE | 2017-08-16 15:04 | HHI.CCPN ---
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 This morning he is more awake alert tracking and communicating thumbs up yes and no Answers to simple questions appropriately with nodding Bilateral breath sounds and improved pulmonary function CT chest without contrast today and depending on the findings we will decide whether this patient needs right thoracoscopy and evacuation of hemothorax 08/13/2017 Patient more alert and awake tracking and moving arms and legs Does not follow commands but seems to be communicating with family little better Minimal movement in left arm Hemodynamically stable Bilateral breath sounds and drainage from small chest tubes is now decreased Remains on assist control ventilation 30% FiO2 and 5 of PEEP Patient underwent today thoracoscopy/mini thoracotomy with evacuation of anterolateral right chest hemothorax and placement of chest tubes Lung is now clearing up and patient doing well Abdomen is soft enteral feeds of tolerated Renal function is slowly improving and patient is putting out dilute urine although still requiring dialysis At this point I believe patient will regain his renal function fully in the time In next few days will wean patient and try to liberate him off the ventilator 08/14/2017 Patient doing well overall at this time He is awake alert somewhat disoriented but response to simple questions tracks and communicates Hemodynamically stable Status post right thoracoscopy and mini thoracotomy evacuation of huge amount of clotted blood with a reexpansion of the right upper lobe of the lung No air leak noted in the chest tubes on either right or the left side Serosanguineous drainage from the right side Patient will be placed on CPAP trials at this point considering this PO2 FiO2 gradient is adequate In the next few days patient will be liberated from the ventilator Renal function is improving and this is extremely encouraging sign with patient putting out good amounts of urine Patient's ATN is now resolving and he should fully recover his renal function 08/15/2017 Patient is definitely improving This morning he is awake alert oriented communicating very well moving 3 out of 4 extremities with clearly plegia of the left arm Hemodynamically stable On CPAP doing really well will switch to trach collar/T piece and see how patient does If he does well with from the ventilator 08/16/2017 Patient greatly improved Awake alert oriented following all the commands communicating with minimal motion of the left arm Objective Vital Signs Date Time Temp Pulse Resp B/P (MAP) Pulse Ox O2 Delivery O2 Flow Rate FiO2 08/16/17 08:21 30 08/16/17 08:21 100 08/16/17 06:00 83 08/16/17 04:00 97.6 18 146/83 (104) 08/15/17 19:00 T-Piece 08/15/17 11:45 8.00 Intake and Output 08/16/17 08/16/17 08/17/17 08:00 16:00 00:00 Intake Total 563 ml Output Total 1480 ml Balance -917 ml Result Diagram: 08/16/17 0434 08/16/17 0434 Imaging Last 24 hours Impressions Chest X-Ray 08/16/17 0600 Signed Impressions: Service Date/Time: Wednesday, August 16, 2017 03:48 - CONCLUSION: 1. No significant change. 2. 2 right-sided chest tubes remain in place with abnormal opacity in the right lung and focal opacity along the right upper lateral pleura. 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 diet Renal/I&O Renal function greatly improved creatinine to 2.7 Vascular Central Line Catheter Date of Insertion: Jul 16, 2017 Line: Central Venous Catheter Side: Left Location: Subclavian Assessment and Plan Plan Start to wean the ventilator Follow ID recommendations for infectious issues CT scan abdomen and pelvis to rule out collection IR to place left-sided chest tube Continue DVT prophylaxis Continue to wean sedated agents Continue amantadine Attestation If patient successfully from the ventilator will remove first chest tube and follow this with a second 1 in a day or 2 Patient will be able to transfer to rehab in about 24-48 hours Critical care at 34 minutes Agustina Hadley MD August 16, 2017 15:04
[2017-08-16] MEDS: SODIUM CHLOR 0.9% 1000 ML INJ 1,000 ML IV SCH ×2 (16:00→21:13)
[2017-08-16] MEDS ORDERED: FUROSEMIDE 40 MG/4 ML VIAL IV PUSH SCH (18:00)
[2017-08-16] MEDS ORDERED: DOXYCYCLINE HYCLATE 100 MG TAB PO SCH (21:00)
[2017-08-17] VITALS (14 sets, daily range): BP systolic 123–153; BP diastolic 72–89; PULSE 96–115; RESP 16–24; TEMP 98.2–99.4; O2SAT 95–99
[2017-08-17] MEDS: SODIUM CHLORIDE 0.9% FLUSH 10 ML FLUSH IV FLUSH PRN (01:34)
[2017-08-17] MEDS: oxyCODONE HCL ORAL CONC 5 MG/0.25 ML SYRINGE PO PRN ×3 (03:03→22:04)
[2017-08-17] MEDS: CHLORHEXIDINE GLUCONATE 2 % 1 PACK (2 CLOTHS) TOP SCH (04:00)
--- NOTE | 2017-08-17 04:37 | RADRPT ---
EXAM DATE/TIME: 08/17/2017 03:24 [facility] COMPARISON: CHEST SINGLE AP, August 16, 2017, 3:48. INDICATIONS : Trauma. Followup pulmonary infiltrates and effusions. MEDICAL HISTORY : None. SURGICAL HISTORY : None. ENCOUNTER: Subsequent ACUITY: 2 weeks PAIN SCORE: Non-responsive. LOCATION: Bilateral chest FINDINGS: A single AP supine portable view of the chest was obtained and demonstrates interval removal of the n asogastric tube. The tracheostomy tube remains in place. The 2 right-sided chest tubes are in place w ith no pneumothorax. Hazy opacity anus throughout the right lung with apparent loculated fluid along the right upper lateral chest wall and blunting of costophrenic angle. There is increased hazy opacit y in the left perihilar region is blunted as well. CONCLUSION: 1. Interval increase in opacity in left perihilar region and left lung base which may represent poste rior layering effusion or infiltrate. 2. The 2 right-sided chest tubes remain in place with stable appearance of the right hemithorax. 3. Interval removal of nasogastric tube. Sam Foster MD on August 17, 2017 at 4:34 Board Certified Radiologist. This report was verified electronically.
[2017-08-17 04:55] LABS: AUTOMATED NEUTROPHIL # 11.1 TH/MM3 (1.8-7.7); BASOPHIL # 0.3 TH/MM3 (0-0.2); BASOPHIL % 2.5 % (0.0-2.0); EOSINOPHIL # 0.3 TH/MM3 (0-0.4); HEMATOCRIT 29.7 % (39.0-51.0); HEMOGLOBIN 9.5 GM/DL (13.0-17.0); LYMPH % 8.4 % (9.0-44.0); LYMPHOCYTE # 1.2 TH/MM3 (1.0-4.8); MEAN CELL VOLUME 95.4 FL (80.0-100.0); MEAN CORPUSCULAR HEMOGLOBIN 30.5 PG (27.0-34.0); MEAN CORPUSCULAR HGB CONC 31.9 % (32.0-36.0); MONOCYTE # 1.3 TH/MM3 (0-0.9); NEUT % 78.1 % (16.0-70.0); PLATELET COUNT 649 TH/MM3 (150-450); RED BLOOD COUNT 3.12 MIL/MM3 (4.50-5.90); RED CELL DISTRIBUTION WIDTH 22.3 % (11.6-17.2); WHITE BLOOD COUNT 14.2 TH/MM3 (4.0-11.0)
[2017-08-17] MEDS: SODIUM CHLORIDE 1 GRAM TAB PO SCH (05:04)
[2017-08-17] MEDS: HEPARIN SODIUM - SQ 10,000 UNITS/ML VIAL SQ SCH ×3 (05:04→22:01)
[2017-08-17] MEDS: METOPROLOL TARTRATE 5 MG/5 ML VIAL IV PUSH SCH ×4 (05:04→22:01)
[2017-08-17 05:24] LABS: ALBUMIN 2.4 GM/DL (3.4-5.0); AST (GOT) 52 U/L (15-37); BICARBONATE 31.2 MEQ/L (21.0-32.0); BLOOD UREA NITROGEN 49 MG/DL (7-18); CALCIUM 9.8 MG/DL (8.5-10.1); CHLORIDE 105 MEQ/L (98-107); GLOMERULAR FILTRATION RATE 37 ML/MIN (>89); GLUCOSE,RANDOM 85 MG/DL (74-106); SODIUM (NA) 148 MEQ/L (136-145)
[2017-08-17 05:27] LABS: ALKALINE PHOSPHATASE 164 U/L (45-117); ALT (GPT) 36 U/L (12-78); TOTAL BILIRUBIN ADULT 0.6 MG/DL (0.2-1.0); TOTAL PROTEIN 7.8 GM/DL (6.4-8.2)
[2017-08-17] MEDS: CHLORHEXIDINE 0.12% (ORAL KIT) 15 ML CUP MT SCH ×2 (08:00→20:11)
[2017-08-17] MEDS: BENEPROTEIN POWDER 1 PACK G-TUBE SCH ×3 (08:01→17:58)
[2017-08-17] MEDS: QUEtiapine FUMARATE 25 MG TAB PO SCH ×3 (08:01→17:58)
[2017-08-17] MEDS: NYSTATIN 100,000 UNIT/GM CREAM 15 GM TOPICAL SCH ×2 (08:01→22:01)
[2017-08-17] MEDS: ARTIFICIAL TEARS OPTH OINT 3.5 APPLIC/3.5 GM TUBO EACH EYE SCH ×2 (08:02→22:00)
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
[2017-08-17] MEDS: DOXYCYCLINE HYCLATE 100 MG CAP PO SCH ×2 (08:41→22:01)
[2017-08-17] MEDS: fentaNYL 50 MCG/HR PATCH T-DERMAL SCH (09:31)
[2017-08-17] MEDS: REMOVE OLD DURAGESIC (FENTANYL) PATCH T-DERMAL SCH (09:31)
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
--- NOTE | 2017-08-17 10:38 | HHI.CCPN ---
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 This morning he is more awake alert tracking and communicating thumbs up yes and no Answers to simple questions appropriately with nodding Bilateral breath sounds and improved pulmonary function CT chest without contrast today and depending on the findings we will decide whether this patient needs right thoracoscopy and evacuation of hemothorax 08/13/2017 Patient more alert and awake tracking and moving arms and legs Does not follow commands but seems to be communicating with family little better Minimal movement in left arm Hemodynamically stable Bilateral breath sounds and drainage from small chest tubes is now decreased Remains on assist control ventilation 30% FiO2 and 5 of PEEP Patient underwent today thoracoscopy/mini thoracotomy with evacuation of anterolateral right chest hemothorax and placement of chest tubes Lung is now clearing up and patient doing well Abdomen is soft enteral feeds of tolerated Renal function is slowly improving and patient is putting out dilute urine although still requiring dialysis At this point I believe patient will regain his renal function fully in the time In next few days will wean patient and try to liberate him off the ventilator 08/14/2017 Patient doing well overall at this time He is awake alert somewhat disoriented but response to simple questions tracks and communicates Hemodynamically stable Status post right thoracoscopy and mini thoracotomy evacuation of huge amount of clotted blood with a reexpansion of the right upper lobe of the lung No air leak noted in the chest tubes on either right or the left side Serosanguineous drainage from the right side Patient will be placed on CPAP trials at this point considering this PO2 FiO2 gradient is adequate In the next few days patient will be liberated from the ventilator Renal function is improving and this is extremely encouraging sign with patient putting out good amounts of urine Patient's ATN is now resolving and he should fully recover his renal function 08/15/2017 Patient is definitely improving This morning he is awake alert oriented communicating very well moving 3 out of 4 extremities with clearly plegia of the left arm Hemodynamically stable On CPAP doing really well will switch to trach collar/T piece and see how patient does If he does well with from the ventilator 08/16/2017 Patient greatly improved Awake alert oriented following all the commands communicating with minimal motion of the left arm 08/17/2017 Patient greatly improved in last few days He is now awake alert oriented but slightly slow in answering as far as reaction Still tends to stare in the distance at times when not mentally stimulated which is not unusual with this degree of injury and this long acute care Moves both legs and right arm and very little motion in the left arm Out of bed Patient passed swallow study and will be started on pured diet with high caloric supplements Objective Vital Signs Date Time Temp Pulse Resp B/P (MAP) Pulse Ox O2 Delivery O2 Flow Rate FiO2 08/17/17 06:00 106 08/17/17 04:00 99.0 24 153/89 (110) 99 08/16/17 20:57 Trach Collar 5.00 28 Intake and Output 08/17/17 08/17/17 08/18/17 08:00 16:00 00:00 Intake Total 622 ml Output Total 1250 ml Balance -628 ml Result Diagram: 08/17/1743908/17/17 0440 Imaging Last 24 hours Impressions Chest X-Ray 08/17/17 0600 Signed Impressions: Service Date/Time: Thursday, August 17, 2017 03:24 - CONCLUSION: 1. Interval increase in opacity in left perihilar region and left lung base which may represent posterior layering effusion or infiltrate. 2. The 2 right-sided chest tubes remain in place with stable appearance of the right hemithorax. 3. Interval removal of nasogastric tube. 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 Patient greatly improved in last few days He is now awake alert oriented but slightly slow in answering as far as reaction Still tends to stare in the distance at times when not mentally stimulated which is not unusual with this degree of injury and this long acute care Moves both legs and right arm and very little motion in the left arm Out of bed Hemodynamic/Cardiac Hemodynamically patient is stable with stable hemoglobin and hematocrit Pulmonary/Respiratory Bilateral good breath sounds patient remains on trach collar with deflated balloon so he is able to swallow Minimal secretions which patient is able to bring up himself Remove posterior chest tube today in the anterior chest tube tomorrow Chest x-ray clearing up There is no question the patient will have a permanent adhesions of the lung and lung will be in a fixed position considering the injury and surgeries but he should have otherwise normal breathing capacity Abdomen/GI Nutrition Patient passed swallow study and will be started on pured diet with high caloric supplements Renal/I&O Renal function rapidly improving and patient will have normal renal function by the time he leaves the hospital Great work by Dr. Hebert the button bradder Vascular Central Line Catheter Date of Insertion: Jul 16, 2017 Line: Central Venous Catheter Side: Left Location: Subclavian Assessment and Plan Plan Start to wean the ventilator Follow ID recommendations for infectious issues CT scan abdomen and pelvis to rule out collection IR to place left-sided chest tube Continue DVT prophylaxis Continue to wean sedated agents Continue amantadine Attestation Critical care 36 minutes Patient can transfer to either [facility] or [facility] rehab Agustina Hadley MD August 17, 2017 10:38
[2017-08-17] MEDS: SODIUM CHLOR 0.9% 1000 ML INJ 1,000 ML IV SCH ×2 (16:06→22:02)
[2017-08-18] VITALS (14 sets, daily range): BP systolic 139–166; BP diastolic 80–94; PULSE 93–110; RESP 14–26; TEMP 98.9–99.5; O2SAT 94–99
[2017-08-18 03:38] LABS: AUTOMATED NEUTROPHIL # 11.8 TH/MM3 (1.8-7.7); BASOPHIL # 0.3 TH/MM3 (0-0.2); BASOPHIL % 1.9 % (0.0-2.0); EOSINOPHIL # 0.2 TH/MM3 (0-0.4); EOSINOPHIL % 1.6 % (0.0-4.0); HEMATOCRIT 27.6 % (39.0-51.0); HEMOGLOBIN 8.9 GM/DL (13.0-17.0); LYMPH % 9.4 % (9.0-44.0); LYMPHOCYTE # 1.4 TH/MM3 (1.0-4.8); MEAN CELL VOLUME 96.3 FL (80.0-100.0); MEAN CORPUSCULAR HEMOGLOBIN 31.2 PG (27.0-34.0); MEAN CORPUSCULAR HGB CONC 32.4 % (32.0-36.0); MONO % 8.3 % (0.0-8.0); MONOCYTE # 1.3 TH/MM3 (0-0.9); NEUT % 78.8 % (16.0-70.0); PLATELET COUNT 622 TH/MM3 (150-450); RED BLOOD COUNT 2.86 MIL/MM3 (4.50-5.90); RED CELL DISTRIBUTION WIDTH 21.9 % (11.6-17.2)
[2017-08-18 04:00] LABS: ALBUMIN 2.5 GM/DL (3.4-5.0); ALKALINE PHOSPHATASE 150 U/L (45-117); ALT (GPT) 30 U/L (12-78); AST (GOT) 35 U/L (15-37); BICARBONATE 31.8 MEQ/L (21.0-32.0); BLOOD UREA NITROGEN 41 MG/DL (7-18); CALCIUM 9.2 MG/DL (8.5-10.1); CHLORIDE 109 MEQ/L (98-107); CREATININE 1.71 MG/DL (0.60-1.30); GLOMERULAR FILTRATION RATE 50 ML/MIN (>89); GLUCOSE,RANDOM 86 MG/DL (74-106); SODIUM (NA) 149 MEQ/L (136-145); TOTAL BILIRUBIN ADULT 0.6 MG/DL (0.2-1.0); TOTAL PROTEIN 7.8 GM/DL (6.4-8.2)
[2017-08-18] MEDS: CHLORHEXIDINE GLUCONATE 2 % 1 PACK (2 CLOTHS) TOP SCH (04:00)
--- NOTE | 2017-08-18 05:52 | RADRPT ---
EXAM DATE: 08/18/2017 5:42 AM EDT AGE/SEX: 21 years / Male INDICATIONS: Shortness of breath. Interval removal of right-sided chest tube. Follow-up pulmonary op acities. CLINICAL DATA: This is the patient's subsequent encounter. Patient reports that signs and symptoms h ave been present for 1 month and indicates a pain score of Nonresponsive. MEDICAL/SURGICAL HISTORY: None. None. COMPARISON: [facility] – [place], CHEST SINGLE AP, 08/16/2017. . FINDINGS: A single AP semierect view of the chest was obtained and demonstrates interval removal of one of the 2 previously noted right-sided chest tubes with no pneumothorax. The more basilar chest tube remains in place. The nasogastric tube has been removed as well. The tracheostomy tube remains in place. Hazy opacity remains in both lungs without significant change. The heart size appears enlarged. CONCLUSION: 1. Interval removal of one of the right-sided chest tubes with no pneumothorax. 2. Status post removal of nasogastric tube. 3. Hazy opacity remains in both lungs without significant change. Electronically signed by: Sam Foster MD 08/18/2017 5:51 AM EDT
[2017-08-18] MEDS: HEPARIN SODIUM - SQ 10,000 UNITS/ML VIAL SQ SCH ×3 (06:13→21:34)
[2017-08-18] MEDS: METOPROLOL TARTRATE 5 MG/5 ML VIAL IV PUSH SCH ×4 (06:13→21:33)
[2017-08-18] MEDS: CHLORHEXIDINE 0.12% (ORAL KIT) 15 ML CUP MT SCH ×2 (08:00→19:34)
[2017-08-18] MEDS: oxyCODONE HCL ORAL CONC 5 MG/0.25 ML SYRINGE PO PRN (08:05)
[2017-08-18] MEDS: QUEtiapine FUMARATE 25 MG TAB PO SCH ×3 (08:05→18:00)
[2017-08-18] MEDS: DOXYCYCLINE HYCLATE 100 MG CAP PO SCH ×2 (08:05→21:33)
[2017-08-18] MEDS: BENEPROTEIN POWDER 1 PACK G-TUBE SCH ×3 (08:06→18:00)
[2017-08-18] MEDS: ARTIFICIAL TEARS OPTH OINT 3.5 APPLIC/3.5 GM TUBO EACH EYE SCH ×2 (08:06→21:33)
[2017-08-18] MEDS: NYSTATIN 100,000 UNIT/GM CREAM 15 GM TOPICAL SCH ×2 (08:07→21:34)
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
[2017-08-18] MEDS: DEXTROSE 5%-NACL 0.225% INJ 1,000 ML IV SCH (12:42)
[2017-08-18] MEDS: MEGESTROL ACETATE SUSP 400 MG/10 ML CUP PO SCH (12:59)
--- NOTE | 2017-08-18 14:42 | HHI.CCPN ---
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 This morning he is more awake alert tracking and communicating thumbs up yes and no Answers to simple questions appropriately with nodding Bilateral breath sounds and improved pulmonary function CT chest without contrast today and depending on the findings we will decide whether this patient needs right thoracoscopy and evacuation of hemothorax 08/13/2017 Patient more alert and awake tracking and moving arms and legs Does not follow commands but seems to be communicating with family little better Minimal movement in left arm Hemodynamically stable Bilateral breath sounds and drainage from small chest tubes is now decreased Remains on assist control ventilation 30% FiO2 and 5 of PEEP Patient underwent today thoracoscopy/mini thoracotomy with evacuation of anterolateral right chest hemothorax and placement of chest tubes Lung is now clearing up and patient doing well Abdomen is soft enteral feeds of tolerated Renal function is slowly improving and patient is putting out dilute urine although still requiring dialysis At this point I believe patient will regain his renal function fully in the time In next few days will wean patient and try to liberate him off the ventilator 08/14/2017 Patient doing well overall at this time He is awake alert somewhat disoriented but response to simple questions tracks and communicates Hemodynamically stable Status post right thoracoscopy and mini thoracotomy evacuation of huge amount of clotted blood with a reexpansion of the right upper lobe of the lung No air leak noted in the chest tubes on either right or the left side Serosanguineous drainage from the right side Patient will be placed on CPAP trials at this point considering this PO2 FiO2 gradient is adequate In the next few days patient will be liberated from the ventilator Renal function is improving and this is extremely encouraging sign with patient putting out good amounts of urine Patient's ATN is now resolving and he should fully recover his renal function 08/15/2017 Patient is definitely improving This morning he is awake alert oriented communicating very well moving 3 out of 4 extremities with clearly plegia of the left arm Hemodynamically stable On CPAP doing really well will switch to trach collar/T piece and see how patient does If he does well with from the ventilator 08/16/2017 Patient greatly improved Awake alert oriented following all the commands communicating with minimal motion of the left arm 08/17/2017 Patient greatly improved in last few days He is now awake alert oriented but slightly slow in answering as far as reaction Still tends to stare in the distance at times when not mentally stimulated which is not unusual with this degree of injury and this long acute care Moves both legs and right arm and very little motion in the left arm Out of bed Patient passed swallow study and will be started on pured diet with high caloric supplements 08/18 patient is clearly improving eyes open tracking,obviously following conversation cr 1.7.making urine he appears catabolic with about 30 lbs weight loss will obtain calorie count appetite currently poor-however was on tube feeds until 2 days Objective Vital Signs Date Time Temp Pulse Resp B/P (MAP) Pulse Ox O2 Delivery O2 Flow Rate FiO2 08/18/17 10:00 94 08/18/17 08:20 98 Trach Collar 5.00 28 08/18/17 08:00 99.4 20 150/88 (108) Intake and Output 08/18/17 08/18/17 08/19/17 08:00 16:00 00:00 Intake Total 898 ml Output Total 1100 ml Balance -202 ml Result Diagram: 08/18/17 03108/18/17 0310 Imaging Last 24 hours Impressions Chest X-Ray 08/18/17 0600 Signed Impressions: CONCLUSION: Disinhibition Score: 15.68 Aggression Score: 14.00 Lability Score: 14.00 Agitated Behavior Total Score: 15 Exam CAREER DEVELOPMENT ASSOCIATE GCS 11 T Hemodynamic/Cardiac stable Pulmonary/Respiratory TC Abdomen/GI Nutrition soft Urinary Catheter Assessment Urinary Catheter: No Vascular Central Line Catheter Date of Insertion: Jul 16, 2017 Line: Central Venous Catheter Side: Left Location: Subclavian Assessment and Plan Plan continue diet pain control DVT prophylaxis TC CT to waterseal F/U CXR Carmen Max MD August 18, 2017 14:42
[2017-08-19] VITALS (9 sets, daily range): BP systolic 151–177; BP diastolic 87–98; PULSE 71–100; RESP 14–20; TEMP 98.1–99.5; O2SAT 97–99
[2017-08-19] MEDS: oxyCODONE HCL ORAL CONC 5 MG/0.25 ML SYRINGE PO PRN (01:16)
[2017-08-19] MEDS: DEXTROSE 5%-NACL 0.225% INJ 1,000 ML IV SCH ×2 (04:00→10:50)
[2017-08-19] MEDS: CHLORHEXIDINE GLUCONATE 2 % 1 PACK (2 CLOTHS) TOP SCH (04:00)
[2017-08-19] MEDS: METOPROLOL TARTRATE 5 MG/5 ML VIAL IV PUSH SCH (04:06)
[2017-08-19] MEDS: SODIUM CHLORIDE 0.9% FLUSH 10 ML FLUSH IV FLUSH PRN (04:06)
[2017-08-19 04:32] LABS: AUTOMATED NEUTROPHIL # 10.8 TH/MM3 (1.8-7.7); BASOPHIL # 0.2 TH/MM3 (0-0.2); BASOPHIL % 1.4 % (0.0-2.0); EOSINOPHIL # 0.2 TH/MM3 (0-0.4); EOSINOPHIL % 1.6 % (0.0-4.0); HEMATOCRIT 31.5 % (39.0-51.0); LYMPH % 10.8 % (9.0-44.0); LYMPHOCYTE # 1.5 TH/MM3 (1.0-4.8); MEAN CORPUSCULAR HEMOGLOBIN 30.7 PG (27.0-34.0); MEAN CORPUSCULAR HGB CONC 31.6 % (32.0-36.0); MEAN PLATELET VOLUME 7.8 FL (7.0-11.0); MONO % 8.6 % (0.0-8.0); MONOCYTE # 1.2 TH/MM3 (0-0.9); NEUT % 77.6 % (16.0-70.0); PLATELET COUNT 639 TH/MM3 (150-450); RED BLOOD COUNT 3.25 MIL/MM3 (4.50-5.90); RED CELL DISTRIBUTION WIDTH 21.8 % (11.6-17.2)
[2017-08-19 04:51] LABS: ALBUMIN 2.7 GM/DL (3.4-5.0); AST (GOT) 37 U/L (15-37); BICARBONATE 31.4 MEQ/L (21.0-32.0); BLOOD UREA NITROGEN 35 MG/DL (7-18); CALCIUM 9.5 MG/DL (8.5-10.1); CHLORIDE 109 MEQ/L (98-107); CREATININE 1.47 MG/DL (0.60-1.30); GLOMERULAR FILTRATION RATE 59 ML/MIN (>89); GLUCOSE,RANDOM 103 MG/DL (74-106); SODIUM (NA) 149 MEQ/L (136-145)
[2017-08-19 04:53] LABS: ALKALINE PHOSPHATASE 161 U/L (45-117); ALT (GPT) 30 U/L (12-78); TOTAL BILIRUBIN ADULT 0.7 MG/DL (0.2-1.0); TOTAL PROTEIN 8.4 GM/DL (6.4-8.2)
[2017-08-19] MEDS: HEPARIN SODIUM - SQ 10,000 UNITS/ML VIAL SQ SCH ×2 (06:00→14:55)
[2017-08-19] MEDS: CHLORHEXIDINE 0.12% (ORAL KIT) 15 ML CUP MT SCH (08:00)
[2017-08-19] MEDS: QUEtiapine FUMARATE 25 MG TAB PO SCH (08:02)
[2017-08-19] MEDS: ARTIFICIAL TEARS OPTH OINT 3.5 APPLIC/3.5 GM TUBO EACH EYE SCH (08:02)
[2017-08-19] MEDS: NYSTATIN 100,000 UNIT/GM CREAM 15 GM TOPICAL SCH (08:03)
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
[2017-08-19] MEDS ORDERED: METOPROLOL TARTRATE 25 MG TAB PO SCH (09:00)
[2017-08-19] MEDS: DOXYCYCLINE HYCLATE 100 MG CAP PO SCH (09:12)
[2017-08-19] MEDS: MEGESTROL ACETATE SUSP 400 MG/10 ML CUP PO SCH (09:12)
[2017-08-19] MEDS ORDERED: METO25TA3 PO (11:56)
[2017-08-19] MEDS ORDERED: SERO25TA PO (11:56)
[2017-08-19] MEDS ORDERED: NYST15T TOPICAL (11:56)
[2017-08-19] MEDS ORDERED: OXYC-392 PO (11:56)
[2017-08-19] MEDS ORDERED: FENT50T T-DERMAL (11:56)
[2017-08-19] MEDS ORDERED: Heparin Inj SQ (11:56)
[2017-08-19] MEDS ORDERED: Megestrol Liq PO (11:56)
[2017-08-19] MEDS ORDERED: DOXY100C PO (11:56)
[2017-08-19] MEDS ORDERED: Chlorhexidine 0.12% Liq MT (11:56)
--- NOTE | 2017-08-19 15:59 | RADRPT ---
EXAM DATE: 08/19/2017 6:11 AM EDT AGE/SEX: 21 years / Male INDICATIONS: Shortness of breath. Interval removal of right-sided chest tube. Follow-up pulmonary op acities CLINICAL DATA: This is the patient's subsequent encounter. Patient reports that signs and symptoms h ave been present for 1 month and indicates a pain score of Nonresponsive. MEDICAL/SURGICAL HISTORY: None. None. COMPARISON: [facility] [place], CHEST SINGLE AP, 08/18/2017. . FINDINGS: A single AP portable semierect view of the chest was obtained and demonstrates interval removal of th e right sided chest tube with no pneumothorax. Diffuse alveolar opacities remain in both lungs withou t significant change. The heart size remains mildly prominent. Tracheostomy tube is unchanged in appe arance. Multiple overlying electrical cardiomegaly and leads are present. The bony thorax is intact w ith no subcutaneous emphysema. CONCLUSION: 1. Interval removal of the right-sided chest tube with no pneumothorax. 2. Diffuse alveolar opacities remain in both lungs. Electronically signed by: Sam Foster MD 08/19/2017 6:17 AM EDT
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
[2017-08-19] MEDS ORDERED: QUEtiapine FUMARATE 25 MG TAB PO SCH (21:00)
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
== END 2017-08-19 15:26 | DRG 3 ==
LOC: NEPI 00:58 → NEDA 01:39 → EDBD 01:39 → N03A 03:48
PROVIDERS: ADMIT Surgery; ATTEND Surgery
PROC: 5A1955Z Respiratory Ventilation, Greater than 96 Consecutive Hours (ICD-10-PCS; 2017-07-16)
PROC: 0FQ00ZZ Repair Liver, Open Approach (ICD-10-PCS; 2017-07-16)
PROC: 30233L1 Transfusion of Nonautologous Fresh Plasma into Peripheral Vein, Percutaneous Approach (ICD-10-PCS; 2017-07-16)
PROC: 30233N1 Transfusion of Nonautologous Red Blood Cells into Peripheral Vein, Percutaneous Approach (ICD-10-PCS; 2017-07-16)
PROC: 30233R1 Transfusion of Nonautologous Platelets into Peripheral Vein, Percutaneous Approach (ICD-10-PCS; 2017-07-16)
PROC: 30233M1 Transfusion of Nonautologous Plasma Cryoprecipitate into Peripheral Vein, Percutaneous Approach (ICD-10-PCS; 2017-07-16)
PROC: 30233K1 Transfusion of Nonautologous Frozen Plasma into Peripheral Vein, Percutaneous Approach (ICD-10-PCS; 2017-07-16)
PROC: 04HY32Z Insertion of Monitoring Device into Lower Artery, Percutaneous Approach (ICD-10-PCS; 2017-07-16)
PROC: 0W9B30Z Drainage of Left Pleural Cavity with Drainage Device, Percutaneous Approach (ICD-10-PCS; 2017-07-16)
PROC: 07TP0ZZ Resection of Spleen, Open Approach (ICD-10-PCS; principal; 2017-07-16 01:36)
PROC: 5A1D70Z Performance of Urinary Filtration, Intermittent, Less than 6 Hours Per Day (ICD-10-PCS; 2017-07-18)
PROC: 03H433Z Insertion of Infusion Device into Left Subclavian Artery, Percutaneous Approach (ICD-10-PCS; 2017-07-18)
PROC: 0WQF0ZZ Repair Abdominal Wall, Open Approach (ICD-10-PCS; 2017-07-21)
PROC: 3E1M38Z Irrigation of Peritoneal Cavity using Irrigating Substance, Percutaneous Approach (ICD-10-PCS; 2017-07-21)
PROC: 0W9930Z Drainage of Right Pleural Cavity with Drainage Device, Percutaneous Approach (ICD-10-PCS; 2017-07-24)
PROC: 0W9930Z Drainage of Right Pleural Cavity with Drainage Device, Percutaneous Approach (ICD-10-PCS; 2017-07-24)
PROC: 0B113F4 Bypass Trachea to Cutaneous with Tracheostomy Device, Percutaneous Approach (ICD-10-PCS; 2017-07-27)
PROC: 06HY33Z Insertion of Infusion Device into Lower Vein, Percutaneous Approach (ICD-10-PCS; 2017-07-27)
PROC: 0BC68ZZ Extirpation of Matter from Right Lower Lobe Bronchus, Via Natural or Artificial Opening Endoscopic (ICD-10-PCS; 2017-07-27)
PROC: 0B9L30Z Drainage of Left Lung with Drainage Device, Percutaneous Approach (ICD-10-PCS; 2017-08-03)
PROC: 0BCM8ZZ Extirpation of Matter from Bilateral Lungs, Via Natural or Artificial Opening Endoscopic (ICD-10-PCS; 2017-08-04)
PROC: 0BCM8ZZ Extirpation of Matter from Bilateral Lungs, Via Natural or Artificial Opening Endoscopic (ICD-10-PCS; 2017-08-05)
PROC: 0W9930Z Drainage of Right Pleural Cavity with Drainage Device, Percutaneous Approach (ICD-10-PCS; 2017-08-05)
PROC: 3E0L3GC Introduction of Other Therapeutic Substance into Pleural Cavity, Percutaneous Approach (ICD-10-PCS; 2017-08-05)
PROC: 0B9K30Z Drainage of Right Lung with Drainage Device, Percutaneous Approach (ICD-10-PCS; 2017-08-10)
PROC: 0WC94ZZ Extirpation of Matter from Right Pleural Cavity, Percutaneous Endoscopic Approach (ICD-10-PCS; 2017-08-13)
DX: S36.032A Major laceration of spleen, initial encounter (principal); N17.0 Acute kidney failure with tubular necrosis; G93.6 Cerebral edema; K72.00 Acute and subacute hepatic failure without coma; R65.20 Severe sepsis without septic shock; R57.1 Hypovolemic shock; S12.100A Unspecified displaced fracture of second cervical vertebra, initial encounter for closed fracture; A41.9 Sepsis, unspecified organism; J18.9 Pneumonia, unspecified organism; J90 Pleural effusion, not elsewhere classified; J96.01 Acute respiratory failure with hypoxia; J96.02 Acute respiratory failure with hypercapnia; J86.9 Pyothorax without fistula; S27.1XXA Traumatic hemothorax, initial encounter; S36.116A Major laceration of liver, initial encounter; S06.359A Traumatic hemorrhage of left cerebrum with loss of consciousness of unspecified duration, initial encounter; G93.40 Encephalopathy, unspecified; S12.200A Unspecified displaced fracture of third cervical vertebra, initial encounter for closed fracture; S37.042A Minor laceration of left kidney, initial encounter; S27.322A Contusion of lung, bilateral, initial encounter; S02.113A Unspecified occipital condyle fracture, initial encounter for closed fracture; S12.300A Unspecified displaced fracture of fourth cervical vertebra, initial encounter for closed fracture; S12.400A Unspecified displaced fracture of fifth cervical vertebra, initial encounter for closed fracture; S12.500A Unspecified displaced fracture of sixth cervical vertebra, initial encounter for closed fracture; S12.600A Unspecified displaced fracture of seventh cervical vertebra, initial encounter for closed fracture; J98.11 Atelectasis; D62 Acute posthemorrhagic anemia; S22.42XA Multiple fractures of ribs, left side, initial encounter for closed fracture; S32.039A Unspecified fracture of third lumbar vertebra, initial encounter for closed fracture; S32.049A Unspecified fracture of fourth lumbar vertebra, initial encounter for closed fracture; E87.0 Hyperosmolality and hypernatremia; I82.612 Acute embolism and thrombosis of superficial veins of left upper extremity; R40.2431 Glasgow coma scale score 3-8, in the field [EMT or ambulance]; R00.0 Tachycardia, unspecified; F17.210 Nicotine dependence, cigarettes, uncomplicated; J98.01 Acute bronchospasm; S42.192A Fracture of other part of scapula, left shoulder, initial encounter for closed fracture; S92.425A Nondisplaced fracture of distal phalanx of left great toe, initial encounter for closed fracture; N28.1 Cyst of kidney, acquired; E87.5 Hyperkalemia; T79.6XXA Traumatic ischemia of muscle, initial encounter; Y95 Nosocomial condition; D72.819 Decreased white blood cell count, unspecified; D72.823 Leukemoid reaction; E83.51 Hypocalcemia; E87.6 Hypokalemia; E88.09 Other disorders of plasma-protein metabolism, not elsewhere classified; F02.80 Dementia in other diseases classified elsewhere, unspecified severity, without behavioral disturbance, psychotic disturbance, mood disturbance, and anxiety; R63.4 Abnormal weight loss; Z23 Encounter for immunization; V29.9XXA Motorcycle rider (driver) (passenger) injured in unspecified traffic accident, initial encounter
CPT/HCPCS: 32551; 32557; 36430; 36556; 36600; 70450; 70551; 71045; 71250; 71260; 72125; 72129; 72132; 72141; 72170; 73620; 74176; 74177; 75984; 76937; 80048; 80053; 80074; 80076; 81001; 82140; 82150; 82550; 82552; 82570; 82805; 82945; 83605; 83615; 83690; 83735; 83930; 83935; 83986; 84100; 84132; 84155; 84157; 84295; 84300; 85007; 85014; 85018; 85025; 85027; 85384; 85610; 85730; 86403; 86850; 86900; 86901; 86920; 86927; 86965; 87015; 87040; 87070; 87071; 87086; 87102; 87116; 87147; 87186; 87205; 87206; 87493; 87641; 88112; 88305; 89051; 90670; 90734; 90935; 93005; 93306; 93970; 94002; 94003; 94640; 94664; 94799; 95819; 96374; 96375; 99291; A0431-QM-SH; A0436-QM-SH; A7521; C1729; C1769; C9113; G0390; J0131; J0330; J0360; J0610; J0690; J0692; J0696; J1170; J1325; J1580; J1630; J1644; J1815; J1885; J1940; J2020; J2185; J2248; J2250; J2370; J2543; J2997; J3010; J3480; J7030; J7040; J7050; J7060; J7120; J7613; L0150; L0172; P9016; P9017; P9035; P9045; P9047; Q4081; Q9967

== ENCOUNTER 2017-09-08 16:10 | Inpatient (IN) | payer BC ==
[2017-09-08 16:00] VITALS: BP 157/83; PULSE 90; RESP 19; TEMP 99; O2SAT 97
[~2017-09-08 16:10] MED LIST: ACET325T15 PO; BACL10TA PO; BENA25CA4 PO; FLEE5TAB PO; KETO30IN3 IV PUSH; MAGN30S PO; METH500T3 PO; METO25TA3 PO; ONDA4TAB7 PO; PANT40P IV PUSH; PANT40TA3 PO; PERI PO; Petrolat-Zinc Barrier Oint TOPICAL; QUET5TAB PO; Simethicone Chew CHEW; WHEEMIS3
[2017-09-08] MEDS ORDERED: PIPERACIL-TAZO 4.5 GM PREMIX 100 ML IV SCH (17:30)
[2017-09-08] MEDS ORDERED: NALOXONE HCL 0.4 MG/ML AMP IV PUSH PRN (17:30)
[2017-09-08] MEDS ORDERED: ONDANSETRON HCL 4 MG/2 ML VIAL IVP PRN (17:30)
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
[2017-09-08] MEDS: PANTOPRAZOLE SODIUM 40 MG VIAL IV PUSH SCH (18:44)
[2017-09-08 19:31] VITALS: O2SAT 97
[2017-09-08] MEDS: ACETAMINOPHEN 1000 MG/100 ML IV PRN (19:48)
[2017-09-08 20:00] VITALS: BP 156/83; PULSE 131; RESP 17; TEMP 99.6; O2SAT 98
[2017-09-08] MEDS: PIPERACIL-TAZO 4.5 GM PREMIX 100 ML IV SCH (20:27)
[2017-09-08 20:35] LABS: HEMATOCRIT 35.8 % (39.0-51.0); HEMOGLOBIN 11.9 GM/DL (13.0-17.0)
[2017-09-08] MEDS: SODIUM CHLORIDE 0.9% FLUSH 10 ML FLUSH IV FLUSH SCH (21:00)
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
[2017-09-09 00:01] VITALS: BP 139/72; PULSE 107; RESP 18; TEMP 98.5; O2SAT 98
[2017-09-09] MEDS: SODIUM CHLOR 0.9% 1000 ML INJ 1,000 ML IV SCH ×4 (00:30→20:08)
[2017-09-09] MEDS: PIPERACIL-TAZO 4.5 GM PREMIX 100 ML IV SCH ×5 (01:10→22:26)
[2017-09-09] MEDS: ACETAMINOPHEN 1000 MG/100 ML IV PRN ×3 (02:41→17:03)
[2017-09-09 04:00] VITALS: BP 152/83; PULSE 100; RESP 18; TEMP 98.3; O2SAT 97
[2017-09-09 04:43] LABS: AUTOMATED NEUTROPHIL # 14.5 TH/MM3 (1.8-7.7); BASOPHIL # 0.1 TH/MM3 (0-0.2); BASOPHIL % 0.4 % (0.0-2.0); EOSINOPHIL # 0.1 TH/MM3 (0-0.4); EOSINOPHIL % 0.7 % (0.0-4.0); HEMATOCRIT 33.3 % (39.0-51.0); HEMOGLOBIN 10.9 GM/DL (13.0-17.0); LYMPH % 6.5 % (9.0-44.0); LYMPHOCYTE # 1.2 TH/MM3 (1.0-4.8); MEAN CELL VOLUME 93.3 FL (80.0-100.0); MEAN CORPUSCULAR HEMOGLOBIN 30.7 PG (27.0-34.0); MEAN CORPUSCULAR HGB CONC 32.9 % (32.0-36.0); MONO % 13.5 % (0.0-8.0); MONOCYTE # 2.5 TH/MM3 (0-0.9); NEUT % 78.9 % (16.0-70.0); PLATELET COUNT 410 TH/MM3 (150-450); RED BLOOD COUNT 3.57 MIL/MM3 (4.50-5.90); RED CELL DISTRIBUTION WIDTH 18.1 % (11.6-17.2); WHITE BLOOD COUNT 18.4 TH/MM3 (4.0-11.0)
[2017-09-09 05:11] LABS: BICARBONATE 24.8 MEQ/L (21.0-32.0); CALCIUM 8.8 MG/DL (8.5-10.1); CREATININE 0.63 MG/DL (0.60-1.30)
[2017-09-09 06:21] LABS: TARGET CELLS 1+ (NORMAL)
[2017-09-09 06:22] LABS: ACANTHOCYTES OCC (NORMAL); KERATOCYTES OCC (NORMAL)
[2017-09-09 06:24] LABS: HOWELL-JOLLY BODIES PRESENT (NONE SEEN)
[2017-09-09 08:00] VITALS: BP 144/84; PULSE 96; RESP 18; TEMP 98.4; O2SAT 97
[2017-09-09] MEDS: SODIUM CHLORIDE 0.9% FLUSH 10 ML FLUSH IV FLUSH SCH ×2 (08:53→20:08)
[2017-09-09] MEDS ORDERED: DIMETHICONE/OXYBENZONE/PADMIATE LIP BALM 4.25 GM TOPICAL PRN (10:30)
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
[2017-09-09] MEDS ORDERED: METO25TA3 PO (11:38)
[2017-09-09] MEDS ORDERED: SERO50TA PO (11:38)
[2017-09-09 11:52] VITALS: BP 164/80; PULSE 95; RESP 16; TEMP 98.4; O2SAT 99
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
[2017-09-09] MEDS ORDERED: cloNIDine HCL 0.1 MG/24 HR PATCH T-DERMAL SCH (14:00)
[2017-09-09] MEDS ORDERED: METOPROLOL TARTRATE 5 MG/5 ML VIAL IV PUSH PRN (15:00)
[2017-09-09] MEDS ORDERED: PANTOPRAZOLE SODIUM 40 MG VIAL IV PUSH SCH (15:00)
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
[2017-09-09] MEDS: PANTOPRAZOLE SODIUM 40 MG VIAL IV PUSH SCH (16:56)
[2017-09-09 17:23] VITALS: O2SAT 99
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
[2017-09-09] MEDS: QUEtiapine FUMARATE 25 MG TAB PO SCH (19:27)
[2017-09-09] MEDS: METOPROLOL TARTRATE 25 MG TAB PO SCH (19:27)
[2017-09-09 20:00] VITALS: BP 152/82; PULSE 95; RESP 17; TEMP 98.1; O2SAT 100
[2017-09-09] MEDS: LORazepam 2 MG/ML VIAL IV PUSH PRN (20:07)
[2017-09-09] MEDS: diphenhydrAMINE HCL 50 MG/ML VIAL IV PUSH PRN (20:07)
[2017-09-10] VITALS: BP 151/84; PULSE 112; RESP 17; TEMP 98.3; O2SAT 97
[2017-09-10] MEDS: SODIUM CHLOR 0.9% 1000 ML INJ 1,000 ML IV SCH (00:30)
[2017-09-10] MEDS: ACETAMINOPHEN 1000 MG/100 ML IV PRN ×3 (00:58→16:26)
[2017-09-10] MEDS: LORazepam 2 MG/ML VIAL IV PUSH PRN ×4 (03:36→22:36)
[2017-09-10] MEDS: PIPERACIL-TAZO 4.5 GM PREMIX 100 ML IV SCH ×4 (05:59→22:36)
[2017-09-10 07:08] LABS: HEMATOCRIT 32.2 % (39.0-51.0); HEMOGLOBIN 10.7 GM/DL (13.0-17.0); MEAN CORPUSCULAR HEMOGLOBIN 31.1 PG (27.0-34.0); MEAN CORPUSCULAR HGB CONC 33.1 % (32.0-36.0); MEAN PLATELET VOLUME 9.2 FL (7.0-11.0); PLATELET COUNT 380 TH/MM3 (150-450); RED BLOOD COUNT 3.43 MIL/MM3 (4.50-5.90); RED CELL DISTRIBUTION WIDTH 17.8 % (11.6-17.2); WHITE BLOOD COUNT 15.3 TH/MM3 (4.0-11.0)
--- NOTE | 2017-09-10 07:31 | RADRPT ---
EXAM DATE: 09/09/2017 5:29 PM EDT AGE/SEX: 22 years / Male INDICATIONS: Ileus vs small bowel obstruction. CLINICAL DATA: This is the patient's subsequent encounter. Patient reports that signs and symptoms h ave been present for 1 week and indicates a pain score of 7/10. MEDICAL/SURGICAL HISTORY: . Hypertension. . Splenectomy. COMPARISON: [facility], ABDOMEN KUB ONLY, 09/08/2017. . FINDINGS: Air-filled loops of distended small bowel remain evident. Stool previously identified in the right c olon has been evacuated. There is no evidence of mass effect. CONCLUSION: Persistent small bowel distention with interval evacuation of stool from the right colon. Electronically signed by: Eduardo Silver MD 09/09/2017 5:44 PM EDT
[2017-09-10 07:48] LABS: BICARBONATE 21.6 MEQ/L (21.0-32.0); CALCIUM 9.1 MG/DL (8.5-10.1); CREATININE 0.47 MG/DL (0.60-1.30)
[2017-09-10 08:00] VITALS: BP 148/81; PULSE 105; RESP 16; TEMP 98.3; O2SAT 100
[2017-09-10] MEDS: METOPROLOL TARTRATE 25 MG TAB PO SCH ×2 (08:15→19:29)
[2017-09-10] MEDS: SODIUM CHLORIDE 0.9% FLUSH 10 ML FLUSH IV FLUSH SCH ×2 (08:22→19:31)
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
[2017-09-10] MEDS ORDERED: NS + KCL 20 MEQ INJ 1,000 ML IV SCH (09:30)
[2017-09-10] MEDS ORDERED: POTASSIUM CHLOR 20 MEQ PREMIX 100 ML IV ONE (09:45)
[2017-09-10 12:24] VITALS: BP 142/83; PULSE 100; RESP 17; TEMP 97.4; O2SAT 100
[2017-09-10] MEDS ORDERED: GLUCAGON 1 MG/ML VIAL OTHER PRN (13:30)
[2017-09-10] MEDS ORDERED: DEXTROSE 50% IN WATER 50 ML VIAL(D50) IV PUSH PRN (13:30)
[2017-09-10] MEDS: POTASSIUM CHLORIDE INJ 30 MEQ in DEXT 5%-NACL 0.9% 1000 ML INJ 1,000 ML IV SCH (15:00)
[2017-09-10] MEDS ORDERED: DIATRIZOATE MEGLUM/DIATRIZOATE SOD 120 ML BTL (for RAD DIAG) NG ONE (15:43)
[2017-09-10] MEDS: PANTOPRAZOLE SODIUM 40 MG VIAL IV PUSH SCH (16:25)
[2017-09-10 16:47] VITALS: BP 151/85; PULSE 98; RESP 20; TEMP 98; O2SAT 100
--- NOTE | 2017-09-10 18:31 | RADRPT ---
EXAM DATE: 09/10/2017 3:41 PM EDT AGE/SEX: 22 years / Male INDICATIONS: Ileus vs. Small bowel obstruction. MCA 53 days ago. Abdomen pain. Patient vomited feces Wednesday. Has not consumed food of fluids for past 5 days. CLINICAL DATA: This is the patient's initial encounter. Patient reports that signs and symptoms have been present for 4 - 6 days and indicates a pain score of 10/10. MEDICAL/SURGICAL HISTORY: Hypertension. Splenectomy. COMPARISON: No prior exams available for comparison. FLUORO TIME: .5 IMAGE COUNT: 17 CONTRAST: FINDINGS: The small bowel is diffusely dilated and there is slow progression of contrast through the small mc l. Contrast does not reach the colon by 8 hours. Differential diagnosis includes a diffuse severe ile us versus a distal obstruction. No free air identified. NG tip in the stomach. CONCLUSION: Dilated small bowel with very slow progression of contrast through small bowel. Contrast does not mynor ch the colon by 8 hours. Differential diagnosis is severe ileus or distal small bowel obstruction. Electronically signed by: Omari Moraes MD 09/10/2017 6:29 PM EDT
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
[2017-09-10] MEDS: QUEtiapine FUMARATE 25 MG TAB PO SCH (19:29)
[2017-09-10] MEDS: diphenhydrAMINE HCL 50 MG/ML VIAL IV PUSH PRN (19:31)
[2017-09-10 20:00] VITALS: BP 153/90; PULSE 98; RESP 17; TEMP 97.9; O2SAT 100
[2017-09-11] VITALS: BP 143/72; PULSE 90; RESP 16; TEMP 98.3; O2SAT 99
[2017-09-11] MEDS: ACETAMINOPHEN 1000 MG/100 ML IV PRN ×3 (00:33→18:30)
[2017-09-11] MEDS: POTASSIUM CHLORIDE INJ 30 MEQ in DEXT 5%-NACL 0.9% 1000 ML INJ 1,000 ML IV SCH ×2 (00:33→11:20)
[2017-09-11] MEDS: PIPERACIL-TAZO 4.5 GM PREMIX 100 ML IV SCH ×4 (04:44→23:50)
[2017-09-11] MEDS: LORazepam 2 MG/ML VIAL IV PUSH PRN ×3 (04:45→23:40)
--- NOTE | 2017-09-11 06:25 | RADRPT ---
EXAM DATE: 09/11/2017 5:54 AM EDT AGE/SEX: 22 years / Male INDICATIONS: Small bowel followthrough followup. CLINICAL DATA: This is the patient's subsequent encounter. Patient reports that signs and symptoms h ave been present for 2 days and indicates a pain score of 0/10. MEDICAL/SURGICAL HISTORY: . Hypertension. . Splenectomy. COMPARISON: [facility] [place], ABDOMEN KUB ONLY, 09/09/2017. [facility] [place], SMALL BOWEL SERIES W/GASTROGRAFIN, 09/10/2017 . . FINDINGS: Dilated bowel loops again seen. Nasogastric tube tip in stomach.. Residual contrast within small bow el loops. No abnormal masses, calcifications, or organomegaly is seen. The osseous structures are un remarkable. CONCLUSION: Multiple dilated small bowel loops. There is residual contrast within the small bowel loops. Electronically signed by: Samm Cosby MD 09/11/2017 6:24 AM EDT
[2017-09-11 08:00] VITALS: BP 147/82; PULSE 109; RESP 17; TEMP 97.5; O2SAT 96
[2017-09-11 08:15] LABS: AUTOMATED NEUTROPHIL # 9.5 TH/MM3 (1.8-7.7); BASOPHIL # 0.1 TH/MM3 (0-0.2); BASOPHIL % 0.7 % (0.0-2.0); EOSINOPHIL # 0.4 TH/MM3 (0-0.4); EOSINOPHIL % 3.3 % (0.0-4.0); HEMOGLOBIN 10.6 GM/DL (13.0-17.0); LYMPH % 11.7 % (9.0-44.0); LYMPHOCYTE # 1.5 TH/MM3 (1.0-4.8); MEAN CORPUSCULAR HEMOGLOBIN 30.9 PG (27.0-34.0); MEAN CORPUSCULAR HGB CONC 33.2 % (32.0-36.0); MONO % 10.8 % (0.0-8.0); MONOCYTE # 1.4 TH/MM3 (0-0.9); NEUT % 73.5 % (16.0-70.0); PLATELET COUNT 405 TH/MM3 (150-450); RED BLOOD COUNT 3.44 MIL/MM3 (4.50-5.90); RED CELL DISTRIBUTION WIDTH 17.8 % (11.6-17.2)
[2017-09-11 08:36] LABS: BICARBONATE 24.4 MEQ/L (21.0-32.0); CREATININE 0.45 MG/DL (0.60-1.30); MAGNESIUM 1.7 MG/DL (1.5-2.5)
[2017-09-11] MEDS: SODIUM CHLORIDE 0.9% FLUSH 10 ML FLUSH IV FLUSH SCH ×2 (09:00→21:00)
[2017-09-11] MEDS: METOPROLOL TARTRATE 25 MG TAB PO SCH (09:00)
[2017-09-11 12:00] VITALS: BP 137/88; PULSE 92; RESP 16; TEMP 97.6; O2SAT 100
[2017-09-11 14:54] VITALS: O2SAT 96
[2017-09-11] MEDS: ENOXAPARIN SODIUM 40 MG/0.4 ML SYRINGE SQ SCH (17:00)
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
[2017-09-11] MEDS: PANTOPRAZOLE SODIUM 40 MG VIAL IV PUSH SCH (18:29)
[2017-09-11] MEDS: METOCLOPRAMIDE HCL 10 MG/2 ML VIAL IV PUSH SCH ×2 (18:30→22:33)
[2017-09-11 20:00] VITALS: BP 142/90; PULSE 78; RESP 20; TEMP 98.3; O2SAT 100
[2017-09-11] MEDS: QUEtiapine FUMARATE 25 MG TAB PO SCH (20:16)
[2017-09-11] MEDS: diphenhydrAMINE HCL 50 MG/ML VIAL IV PUSH PRN (20:17)
[2017-09-11] MEDS: ONDANSETRON ODT 4 MG TAB PO PRN (20:24)
[2017-09-12] VITALS: BP 132/71; PULSE 78; RESP 18; TEMP 98.3; O2SAT 97
[2017-09-12] MEDS: POTASSIUM CHLORIDE INJ 30 MEQ in DEXT 5%-NACL 0.9% 1000 ML INJ 1,000 ML IV SCH (01:39)
[2017-09-12] MEDS: ONDANSETRON ODT 4 MG TAB PO PRN ×3 (02:39→16:31)
[2017-09-12] MEDS: PIPERACIL-TAZO 4.5 GM PREMIX 100 ML IV SCH ×4 (05:37→23:58)
[2017-09-12] MEDS: METOCLOPRAMIDE HCL 10 MG/2 ML VIAL IV PUSH SCH ×3 (05:37→21:15)
[2017-09-12] MEDS: ACETAMINOPHEN 1000 MG/100 ML IV PRN ×3 (05:37→21:17)
[2017-09-12] MEDS: SODIUM CHLORIDE 0.9% FLUSH 10 ML FLUSH IV FLUSH SCH ×2 (09:00→21:13)
[2017-09-12 10:02] VITALS: O2SAT 98
[2017-09-12] MEDS: ENOXAPARIN SODIUM 40 MG/0.4 ML SYRINGE SQ SCH (10:32)
[2017-09-12 10:46] VITALS: BP 135/81; PULSE 70; RESP 17; TEMP 98.3
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
--- NOTE | 2017-09-12 12:01 | RADRPT ---
EXAM DATE: 09/12/2017 11:51 AM EDT AGE/SEX: 22 years / Male INDICATIONS: Bilateral leg swelling. CLINICAL DATA: This is the patient's initial encounter. Patient reports that signs and symptoms have been present for 1 day and indicates a pain score of 0/10. MEDICAL/SURGICAL HISTORY: Hypertension. Renal failure. Liver disease. Splenectomy. COMPARISON: [facility] [place], [place] LEG BILATERAL VENOUS DOPPLER, 07/21/2017. . TECHNIQUE: Venous ultrasound of both lower extremities was performed from the inguinal ligament to t he proximal calf. Real-time, color Doppler and spectral tracing, compression and augmentation techni ques were used. FINDINGS: Right Leg: Normal compression of the deep venous system from the inguinal region to the proximal aurelio f. No echogenic clot is seen. Normal response of the venous system to augmentation and respiration. Left Leg: Normal compression of the deep venous system from the inguinal region to the proximal calf . No echogenic clot is seen. Normal response of the venous system to augmentation and respiration. Other: None. CONCLUSION: No DVT is identified within either lower extremity. Electronically signed by: Marvin Sandoval MD 09/12/2017 11:59 AM EDT
[2017-09-12 13:59] VITALS: BP 138/85; PULSE 80; RESP 18; TEMP 98.4; O2SAT 98
[2017-09-12 16:25] VITALS: BP 143/90; PULSE 80; RESP 18; TEMP 98.3; O2SAT 95
[2017-09-12] MEDS: PANTOPRAZOLE SODIUM 40 MG VIAL IV PUSH SCH (17:41)
[2017-09-12] MEDS: LORazepam 2 MG/ML VIAL IV PUSH PRN (17:41)
[2017-09-12 19:12] VITALS: BP 140/79; PULSE 92; RESP 18; TEMP 98.8; O2SAT 97
[2017-09-12] MEDS: MAGNESIUM HYDROXIDE SUSP 30 ML CUP PO SCH (21:14)
[2017-09-12] MEDS: QUEtiapine FUMARATE 25 MG TAB PO SCH (21:14)
[2017-09-12] MEDS: DOCUSATE SODIUM 100 MG CAP PO SCH (21:14)
[2017-09-12] MEDS: diphenhydrAMINE HCL 50 MG/ML VIAL IV PUSH PRN (21:16)
[2017-09-12] MEDS: SODIUM CHLORIDE 0.9% FLUSH 10 ML FLUSH IV FLUSH PRN (23:58)
[2017-09-13] VITALS: BP 134/85; PULSE 81; RESP 16; TEMP 97.8; O2SAT 96
[2017-09-13] MEDS: PIPERACIL-TAZO 4.5 GM PREMIX 100 ML IV SCH ×2 (05:32→12:53)
[2017-09-13] MEDS: SODIUM CHLORIDE 0.9% FLUSH 10 ML FLUSH IV FLUSH PRN (05:32)
[2017-09-13] MEDS: METOCLOPRAMIDE HCL 10 MG/2 ML VIAL IV PUSH SCH ×2 (05:32→12:53)
[2017-09-13] MEDS: MAGNESIUM HYDROXIDE SUSP 30 ML CUP PO SCH (09:00)
[2017-09-13] MEDS ORDERED: ACETAMINOPHEN 650 MG/20.3 ML UDC PO PRN (09:00)
[2017-09-13] MEDS: DOCUSATE SODIUM 100 MG CAP PO SCH (09:25)
[2017-09-13] MEDS: SODIUM CHLORIDE 0.9% FLUSH 10 ML FLUSH IV FLUSH SCH (09:26)
[2017-09-13] MEDS: ONDANSETRON ODT 4 MG TAB PO PRN (09:31)
[2017-09-13 10:47] VITALS: O2SAT 98
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
[2017-09-13] MEDS ORDERED: ZOFR4TAB3 SL (14:12)
[2017-09-13] MEDS ORDERED: REGL10TA5 PO (14:12)
[2017-09-13] MEDS ORDERED: DOCU1CAP39 PO (14:12)
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
[2017-09-13] MEDS ORDERED: SERO50TA PO ×3 (16:08→16:19)
[2017-09-13] MEDS ORDERED: METO25TA3 PO (16:09)
[2017-09-13] MEDS ORDERED: METO-309 PO (16:19)
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
== END 2017-09-13 16:57 | disposition home or self-care (01) | DRG 388 ==
LOC: N06B 17:13
PROVIDERS: ADMIT Surgery; ATTEND Surgery
DX: K56.0 Paralytic ileus (principal); A41.9 Sepsis, unspecified organism; K31.84 Gastroparesis; I10 Essential (primary) hypertension; T40.605A Adverse effect of unspecified narcotics, initial encounter; G47.00 Insomnia, unspecified; Z87.891 Personal history of nicotine dependence
CPT/HCPCS: 74018; 74176; 74250; 80048; 82150; 82948; 83735; 85014; 85018; 85025; 85027; 87040; 93970; 94150; 94667; 94668; C9113; J0131; J1200; J2060; J2543; J2765; J3480; J7030; J7042; L1960; Q9963